=== PATIENT | male | born 1960 | race Two or more races ===

== ENCOUNTER 2024-06-18 18:43 | Inpatient (IN) | payer OTHER ==
[~2024-06-18] VITALS: Ht 182.9 cm; Wt 155.5 kg
[2024-06-18] VITALS (9 sets, daily range): BP systolic 102–122; BP diastolic 56–83; PULSE 80–101; RESP 17–38; TEMP 94.1–95.3; O2SAT 86–100
[~2024-06-18 18:43] MED LIST: ALBU108A5 IN; APIX5TAB PO; ATEN-60 PO; FLUT50SP31 EACHNOSTRI; HYDR25TA4 PO; LOSA-535 PO; TAMS0.4C39 PO
[2024-06-18] MEDS: EPINEPHrine HCL 250 ML IV ONE ×2 (19:02→19:03)
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
[2024-06-18] MEDS: NOREPINEPHRINE 8 MG/250ML KIT 250 ML IV ONE (19:09)
--- NOTE | 2024-06-18 19:35 | RESUS ---
CODE BLUE ASSESSSMENT History of Events History of Events: SECURED CODE NINOSKA ARRRIVED WITH EMS AT 1842. Initial Information Date: Jun 18, 2024 Time: 18:42 Location of Arrest: In Field Arrest Witnessed: Yes CPR started by whom: EMS Pre-Hospital Care: ACLS Type of arrest: Cardiac, Adult, Witnessed Spontaneous Respirations: No Pulse Present: No Monitoring: ECG, Pulse Oximetry Crash Cart Opened and Supplies: Yes Airway Ventilation Breathing at Onset: Assisted Oxygen Delivery Method: Ambu-Bag Time of first Assisted Ventila: 18:42 Artificial Ventilation: Bag/Mask (IGEL AIRWAY INSERTED BY EMS) Circulation Circulation #1: Time: 18:44 Pulse Rate (adult): 0 Blood Pressure Systolic: 0 Blood Pressure Diastolic: 0 Circulation Comment: PEA Circulation #2: Time: 18:46 Pulse Rate (adult): 0 Blood Pressure Systolic: 0 Blood Pressure Diastolic: 0 Circulation Comment: PEA Circulation #3: Time: 18:48 Pulse Rate (adult): 0 Blood Pressure Systolic: 0 Blood Pressure Diastolic: 0 Circulation Comment: PEA Circulation #4: Time: 18:50 Pulse Rate (adult): 151 Blood Pressure Systolic: 169 Blood Pressure Diastolic: 78 Circulation Comment: ROSC Defibrillation Defbrillation : Time Defibrillator Applied: 18:42 Procedure - IV Procedure - IV : IV start time: 18:48 IV Side: Right IV Location: Forearm Anterior IV Catheter Type: Peripheral IV IV Placed: In Hospital IV Gauge: 20 IV Line Care: Saline Flush Procedure - Intraosseous Site of Intraosseous: Tibia alberto-medial (LEFT I/O ) Intraosseous inserted by: EMS Medications & Response Medications and Responses #1: Medication Time: 18:45 ADULT Medications Given ADULT: Epinephrine 1 mg Route of Administration: IO Medications and Responses #2: Medication Time: 18:46 ADULT Medications Given ADULT: 2 Amps Na Bicarb Route of Administration: IO Medications and Responses #3: Medication Time: 18:48 ADULT Medications Given ADULT: Epinephrine 1 mg, Calcium Chloride 10 mL Route of Administration: IO Medications and Responses #4: Medication Time: 18:49 ADULT Medications Given ADULT: Sodium Bacarbinate 50 meq Route of Administration: IO Medications and Responses #5: Medication Time: 18:53 ADULT Medications Given ADULT: Amiodarone 150 mg Route of Administration: IO Nurses Notes Emblem Coma Scale Eye Opening: None (1) Patricia Coma Scale Verbal: None (1) Emblem Coma Scale Motor: None (1) Pupil Reaction: Non Reactive (3MM) Bedside Blood Glucose: 114 Time Code Ended Time Code Ended: 18:50 Post Arrest Status: Ventilated Outcome of code: Successful Family notified: Yes ( AT BEDSIDE SPOKE WITH ) Code Team Present: FRANK BROWN INSURANCE INVESTIGATOR, SUSSY DANIEL RN, JOSE R RN, RICCARDO RN, YANCI CHEMICAL ENGRAVER, MITCHELL RT, MARILIA NURSE MACHINE MOLDER SQUEEZE, CAROLE CHEMICAL ENGRAVER, ROSC Time of ROSC: 18:50 Frank Meyers Jun 18, 2024 19:35
[2024-06-18 19:45] LABS: Basophils # (auto) 0 10 ^3/uL (0-0.2); Basophils % (auto) 0.4 % (0.0-2.0); Eosinophils # (auto) 0 10 ^3/uL (0-0.8); Eosinophils % (auto) 0.6 % (0.0-7.0); Hematocrit 41.2 % (41.0-53.0); Hemoglobin 13.3 g/dL (13.5-17.5); Lymphocytes # (auto) 1.1 10 ^3/uL (0.4-5.4); Lymphocytes % (auto) 17.1 % (10.0-50.0); Mean Corpuscular Hemoglobin 30.3 pg (28.0-32.0); Mean Corpuscular Hgb Conc. 32.3 g/dL (32.0-36.0); Mean Corpuscular Volume 93.9 fL (80.0-100.0); Monocytes # (auto) 0.5 10 ^3/uL (0-1.3); Monocytes % (auto) 8.6 % (0.0-12.0); Neutrophils # (auto) 4.6 10 ^3/uL (1.6-8.6); Neutrophils % (auto) 73.3 % (37.0-80.0); Nucleated Red Blood Cells % 0.2 %; Platelet Count (auto) 103 10^3/uL (140-450); Red Blood Cells 4.39 10^6/uL (4.5-5.90); Red Cell Distribution Width 14.5 % (11.8-14.3); White Blood Cell 6.3 10^3/uL (4.4-10.8)
[2024-06-18] MEDS ORDERED: SODIUM CHLORIDE 0.9% 1,000 ML IV SCH (19:45)
[2024-06-18] MEDS ORDERED: ACETAMINOPHEN 650 MG RECT SUPP PR PRN (19:45)
[2024-06-18] MEDS: fentaNYL Drip 2500mCg/250mlNS 250 ML IV SCH (19:57)
[2024-06-18 19:58] LABS: Alanine Aminotransferase 25 U/L (7-40); Albumin 3.3 g/dL (3.2-4.8); Alkaline Phosphatase 69 U/L (46-116); Anion Gap 14 (5-15); Aspartate Aminotransferase 33 U/L (13-40); Calcium 9.5 mg/dL (8.7-10.4); Carbon Dioxide 29 mmol/L (20-31); Potassium 3.8 mmol/L (3.5-5.1)
[2024-06-18 20:04] LABS: Bilirubin, Total 1.3 mg/dL (0.2-1.0); Blood Urea Nitrogen 25 mg/dL (9-23); Chloride 88 mmol/L (98-107); Glucose 123 mg/dL (74-106); Sodium 131 mmol/L (136-145)
--- NOTE | 2024-06-18 20:05 | DVH ---
CHEST RADIOGRAPH Indication: tube placement Technique: Single frontal view of the chest was obtained Comparison: None FINDINGS: Lines and Tubes: Endotracheal tube 1.1 cm above the sherri Lungs: Pulmonary vascular congestion bilateral Pleura: No effusion. No pneumothorax. Cardiomediastinal contours: Cardiomegaly Bones: No acute osseous abnormality. IMPRESSION: 1. Endotracheal tube 1 cm above the sherri. 2. Cardiomegaly 3. Pulmonary vascular congestion bilaterally
[2024-06-18] MEDS: MIDAZOLAM DRIP 50 mg/50mL 50 ML IV ONE (20:21)
[2024-06-18] MEDS: MIDAZOLAM DRIP 50 mg/50mL 50 ML IV SCH (20:30)
[2024-06-18 20:42] LABS: Blood Alcohol < 3.0 mg/dL (<10)
[2024-06-18] MEDS ORDERED: NITROGLYCERIN 0.4 MG SL TAB SL PRN (20:45)
[2024-06-18] MEDS ORDERED: MORPHINE SULFATE INJ 2 MG/ml SYRG IV PRN (20:45)
--- NOTE | 2024-06-18 20:53 | DVHHP2 ---
History of Present Illness Reason for Visit: Cardiac arrest History of Present Illness The patient is a 64-year-old male severely obese with past medical history hypertension presented to [facility] ED for evaluation of cardiopulmonary arrest. As reported by EMS, patient came home and after entering residence, collapsed to the ground and family called 911. CPR was initiated, and EMS arrived shortly thereafter. EMS reports patient was in PEA upon arrival and AutoPulse was applied. reports patient had been feeling more fatigued than normal over the past 2-3 days and had stopped driving due to the fatigue. Patient was seen and evaluated in the ED fully intubated, laboratory data shows WBC 6.3, platelets 103, sodium 131, potassium 3.6, BUN 25, creatinine 1.00, GFR 83, glucose 123, total bilirubin 1.3, BNP 745.94, troponin 60, blood pressure 82/32, heart rate 154 trending down to 100, temperature 97.4 F, O2 saturation 97% on ventilator. Head CT showed no acute intracranial hemorrhage. Please see medication orders section in the computer. On my assessment, patient is fully intubated, no diaphoresis, no vomiting, no fever, no chills. Patient was admi tted for further evaluation and medical management. Past Medical History HTN, Morbid obesity, heart problem Past Surgical History Unknown Family History Reviewed, noncontributory to the management of this case. Past Social History The patient lives at home, no history of smoking, alcohol or illicit drugs abuse on file. Review of Systems Constitutional: Yes: Weakness, Other (Fatigue); No: Fever, Chills, Sweats, Malaise Eyes: No: Pain, Vision change, Conjunctivae inflammation, Eyelid inflammation, Other, Redness ENT: No: Ear pain, Ear discharge, Nose pain, Nose discharge, Nose congestion, Mouth pain, Mouth swelling, Throat pain, Throat swelling, Other Respiratory: No: Cough, Dry, Shortness of breath, SOB with excertion, Wheezing, Hemoptysis, Pleuritic Pain, Sputum, Wheezing, Other Cardiovascular: No: Chest Pain, Palpitations, Orthopnea, Paroxysmal Noc. Dyspnea, Edema, Lt Headedness, Other Gastrointestinal: No: Nausea, Vomiting, Abdominal Pain, Diarrhea, Constipation, Melena, Hematochezia, Other Genitourinary: No Dysuria, No Frequency, No Incontinence, No Hematuria, No Retention, No Other Musculoskeletal: No: other, neck pain, shoulder pain, arm pain, back pain, hand pain, leg pain, foot pain Skin: No: Rash, Lesions, Jaundice, Bruising, Other Neurological: No: Weakness, Numbness, Incoordination, Change in speech, Confusion, Seizures, Other Allergies: Coded Allergies: UNOBTAINABLE (Unverified , 06/18/24) Medications Current Medications Medications Dose Ordered Sig/Patricia Route Start Time Stop Time Status Last Admin Dose Admin Norepinephrine Bitartrate 250 ml @ 3.75 mls/hr Q24H IV 06/18/24 19:15 Fentanyl Citrate 250 ml @ 2.5 mls/hr Q24H IV 06/18/24 19:45 06/18/24 19:57 2.5 MLS/HR Famotidine 20 mg Q12HR IV 06/18/24 22:00 Sodium Chloride 1,000 ml @ 60 mls/hr [id number] IV 06/18/24 19:45 Ondansetron HCl 4 mg Q4HP PRN IV 06/18/24 19:45 Enoxaparin Sodium 40 mg DAILY SC 06/19/24 10:00 UNV Acetaminophen 650 mg Q6HP PRN OR 06/18/24 19:45 Midazolam HCl 50 ml @ 10 mls/hr Q5H IV 06/18/24 20:30 06/18/24 20:30 10 MLS/HR Exam Vital Signs Vital Signs Date Time Temp Pulse Resp B/P (MAP) Pulse Ox O2 Delivery O2 Flow Rate FiO2 06/18/24 20:30 90/58 06/18/24 20:06 84 16 94 100 06/18/24 19:35 Ambu-Bag General Appearance: Other (Fully intubated) HEENT: Atraumatic, PERRLA, EOMI, Mucous membr. moist/pink Respiratory: Normal air movement, Other (On ventilator) Cardiovascular: Regular rate, Normal S1, Normal S2, No murmurs Abdominal: Normal bowel sounds, Soft, No tenderness, No hepatospenomegaly, No masses Extremities: No clubbing, No cyanosis, No edema, Normal pulses, No tenderness/swelling Neuro: Other (Generalized weakness) Psych/Mental Status: Other (Unobtainable) Labs/Xrays Labs Test 06/18/24 20:01 06/18/24 19:13 Range/Units Troponin I High Sensitivity 154 *H </=54 ng/L White Blood Count 6.3 4.4-10.8 10^3/uL Red Blood Count 4.39 L 4.5-5.90 10^6/uL Hemoglobin 13.3 L 13.5-17.5 g/dL Hematocrit 41.2 41.0-53.0 % Mean Corpuscular Volume 93.9 80.0-100.0 fL Mean Corpuscular Hemoglobin 30.3 28.0-32.0 pg Mean Corpuscular Hemoglobin Concent 32.3 32.0-36.0 g/dL Red Cell Distribution Width 14.5 H 11.8-14.3 % Platelet Count 103 L 140-450 10^3/uL Mean Platelet Volume 8.3 6.9-10.8 fL Neutrophils (%) (Auto) 73.3 37.0-80.0 % Lymphocytes (%) (Auto) 17.1 10.0-50.0 % Monocytes (%) (Auto) 8.6 0.0-12.0 % Eosinophils (%) (Auto) 0.6 0.0-7.0 % Basophils (%) (Auto) 0.4 0.0-2.0 % Neutrophils # (Auto) 4.6 1.6-8.6 10 ^3/uL Lymphocytes # (Auto) 1.1 0.4-5.4 10 ^3/uL Monocytes # (Auto) 0.5 0-1.3 10 ^3/uL Eosinophils # (Auto) 0 0-0.8 10 ^3/uL Basophils # (Auto) 0 0-0.2 10 ^3/uL Nucleated Red Blood Cells 0.2 % Sodium Level 131 L 136-145 mmol/L Potassium Level 3.8 3.5-5.1 mmol/L Chloride Level 88 L 98-107 mmol/L Carbon Dioxide Level 29 20-31 mmol/L Anion Gap 14 5-15 Blood Urea Nitrogen 25 H 9-23 mg/dL Creatinine 1.00 0.700-1.30 mg/dL Glomerular Filtration Rate Calc 83 >90 mL/min BUN/Creatinine Ratio 25.0 H 10.0-20.0 Serum Glucose 123 H 74-106 mg/dL Calcium Level 9.5 8.7-10.4 mg/dL Total Bilirubin 1.3 H 0.2-1.0 mg/dL Aspartate Amino Transferase (AST) 33 13-40 U/L Alanine Aminotransferase (ALT) 25 7-40 U/L Alkaline Phosphatase 69 46-116 U/L B-Type Natriuretic Peptide 745.94 0-100 pg/mL Total Protein 6.0 5.7-8.2 g/dL Albumin 3.3 3.2-4.8 g/dL Plasma/Serum Blood Alcohol < 3.0 <10 mg/dL PATIENT: KRYS BLAKE ACCT: [id number] UNIT: [id number] : 1960 LOC: OVERFLOW ROOM / BED: [address] [place] [address] / AGE / SEX: 64 / M ADM STATUS: ADM IN SERVICE 34 ORDERING PHYSICIAN: SHAHLA JACOBO MD PROCEDURE(s): CS2 - CERVICAL WITHOUT CONTRAST REASON: full arrest ORDER NUMBER(s): [id number], ACCESSION NUMBER(s): [id number] EXAM: CT CERVICAL WITHOUT CONTRAST HISTORY: full arrest COMPARISON: None CTDIvol mGy, DLP mGy*cm. TECHNIQUE: Multiple axial CT images of the spine were obtained using bone algorithm. Axial and coronal reformatting was done. Bone and soft tissue windows were reviewed. FINDINGS: No prevertebral soft tissue abnormality noted. Reversal of the normal cervical lordosis. No listhesis. No evidence of fracture or dislocation in the cervical spine. Visualized paraspinal soft tissues appear grossly unremarkable. Mild cervical spondylosis without significant spinal canal stenosis. IMPRESSION: No evidence of cervical spine fracture or dislocation. ORDERING PHYSICIAN: SHAHLA JACOBO MD PROCEDURE(s): CXRP - CHEST PORTABLE REASON: tube placement ORDER NUMBER(s): [id number], ACCESSION NUMBER(s): [id number] CHEST RADIOGRAPH Indication: tube placement Technique: Single frontal view of the chest was obtained Comparison: None FINDINGS: Lines and Tubes: Endotracheal tube 1.1 cm above the sherri Lungs: Pulmonary vascular congestion bilateral Pleura: No effusion. No pneumothorax. Cardiomediastinal contours: Cardiomegaly Bones: No acute osseous abnormality. IMPRESSION: 1. Endotracheal tube 1 cm above the sherri. 2. Cardiomegaly 3. Pulmonary vascular congestion bilaterally PATIENT: KRYS BLAKE ACCT: [id number] UNIT: [id number] : 1960 LOC: OVERFLOW ROOM / BED: 1009-VANESSA / A AGE / SEX: 64 / M ADM STATUS: ADM IN SERVICE 34 ORDERING PHYSICIAN: SHAHLA JACOBO MD PROCEDURE(s): HWOCT - HEAD WITHOUT CONTRAST REASON: full arrest ORDER NUMBER(s): [id number], ACCESSION NUMBER(s): [id number] EXAM: CT HEAD WITHOUT CONTRAST INDICATION: full arrest TECHNIQUE: CT of the head without intravenous contrast. Radiation Dose Information: CT Dose: CTDI volume is 68.54 mGy. Dose-length product is 1350.29 mGy*cm The dose indicators for CT are the volume Computed Tomography (CT) Dose Index (CTDIvol) and the Dose Length Product (DLP), and are measured in units of mGy and mGy-cm, respectively. These indicators are not patient dose, but values generated from the CT scanner acquisition factors. The report includes radiation exposure data for exposures received during this examination. COMPARISON: None FINDINGS: There is no evidence of acute intracranial hemorrhage, extra-axial collection, mass effect, midline shift, herniation or hydrocephalus. The ventricles, sulci and cisterns are age appropriate. The barragan-white differentiation is intact. Patchy periventricular and subcortical white matter hypoattenuation is nonspecific but may be related to small vessel ischemic disease. Opacification of the ethmoid sinuses bilaterally sinuses and mastoid air cells are clear. The surrounding soft tissues and osseous structures are unremarkable. IMPRESSION: 1. No acute intracranial hemorrhage 2. No CT findings of territorial ischemia. 3. No CT findings of displaced skull fracture Assessment/Plan Assessment/Plan Cardiopulmonary arrest Hypotension Heart failure, unspecified Elevated troponin Severe obesity Acute exacerbation of congestive heart failure Acute respiratory failure Plan 1. Admit to intensive care unit 2. Breathing treatment 3. Pain control management 4. Management of fluids and electrolytes 5. Consultation for cardiology/pulmonology 6. Diagnostic tests head CT 7. DVT prophylaxis-on heparin 8. Repeat labs CBC, CMP in a.m. 9. Continue with current medical management 10. Treatment plan discussed with patient and RN. Patient is fully intubated. Plan discussed with: Patient, Other (RN) My Orders Orders - SUNITA CAMPO DNP Procedure Category Date Status Time * Cardiology Consult CONS 06/18/24 Transmitted 19:41 *Consult CONS 06/18/24 Transmitted / 19:41 Famotidine Injection PHA 06/18/24 In Process (Pepcid Injection) 22:00 Allergies MITCH 06/18/24 In Process 19:41 Code Status CODE 06/18/24 Transmitted 19:41 Sodium Chloride 0.9% PHA 06/18/24 In Process 19:45 Oxygen Per Hour RT 06/18/24 Transmitted 19:41 Ondansetron Hcl PHA 06/18/24 In Process (Zofran) 19:45 Enoxaparin Sodium PHA 06/19/24 Pending (Lovenox) 10:00 Fall Risk Precautions MITCH 06/18/[address] 19:41 Complete Blood Count LAB 06/19/24 Verified 04:00 Comprehensive LAB 06/19/24 Verified Metabolic Panel 04:00 Npo (Nothing By DIET 06/19/24 Transmitted Mouth) Diet Breakfast Condition: Critical MITCH 06/18/24 In Process 19:41 Sequential MITCH 06/18/24 In Process Compression Device Acetaminophen PHA 06/18/24 In Process Suppository (Tylenol 19:45 Furosemide Injection PHA 06/18/24 Verified (Lasix Injection) 20:45 Furosemide Injection PHA 06/19/24 Verified (Lasix Injection) 10:00 Heparin Sodium PHA 06/18/24 Verified (Porcine) 22:00 Admit ADMIT 06/18/24 Verified 20:43 Nitroglycerin PHA 06/18/24 Verified Sublingual (Ntrostat 20:45 Morphine Sulfate PHA 06/18/24 Verified Injection 20:45 Stat Ekg For Chest MITCH 06/18/24 Verified Pain 20:43 Notify Of Changes [facility] 06/18/24 Verified From Base 20:43 Circular Knitter Helper For MITCH 06/18/24 Verified 24 Hours 20:43 Emergency Dysrhythmia MITCH 06/18/24 Verified Protocol 20:43 Rhythm Strips Once MITCH 06/18/24 Verified Every Shift 20:43 Oxygen By Nasal RT 06/18/24 Verified Cannula 20:43 Problem List: (1) Cardiopulmonary arrest (2) Acute respiratory failure (3) Elevated troponin (4) Severe obesity (5) Heart failure, unspecified (6) Hypotension (7) Acute exacerbation of congestive heart failure Date of Service: Jun 18, 2024 Billing Provider: SUNITA CAMPO DNP Common Visit Codes: 41138-[id number] INP/OBS CARE (HIGH) SUNITA CAMPO DNP Jun 18, 2024 20:53
[2024-06-18 21:41] LABS: Base Excess 7.8 mmol/L (-2.0-3.0)
--- NOTE | 2024-06-18 21:47 | DVH ---
EXAM: CT HEAD WITHOUT CONTRAST INDICATION: full arrest TECHNIQUE: CT of the head without intravenous contrast. Radiation Dose Information: CT Dose: CTDI volume is 68.54 mGy. Dose-length product is 1350.29 mGy*cm The dose indicators for CT are the volume Computed Tomography (CT) Dose Index (CTDIvol) and the Dose Length Product (DLP), and are measured in units of mGy and mGy-cm, respectively. These indicators are not patient dose, but values generated from the CT scanner acquisition factors. The report includes radiation exposure data for exposures received during this examination. COMPARISON: None FINDINGS: There is no evidence of acute intracranial hemorrhage, extra-axial collection, mass effect, midline s hift, herniation or hydrocephalus. The ventricles, sulci and cisterns are age appropriate. The barragan-white differentiation is intact. Patchy periventricular and subcortical white matter hypoattenuation is nonspecific but may be related to small vessel ischemic disease. Opacification of the ethmoid sinuses bilaterally sinuses and mastoid air cells are clear. The surrounding soft tissues and osseous structures are unremarkable. IMPRESSION: 1. No acute intracranial hemorrhage 2. No CT findings of territorial ischemia. 3. No CT findings of displaced skull fracture
[2024-06-18] MEDS: FAMOTIDINE (10MG/ML) 2ML VL IV SCH (22:00)
[2024-06-18] MEDS: HEPARIN SODIUM (PORCINE) 5000 UNITS/ML 1ML VIAL SC SCH (22:00)
--- NOTE | 2024-06-18 22:11 | DVH ---
EXAM: CT CERVICAL WITHOUT CONTRAST HISTORY: full arrest COMPARISON: None CTDIvol mGy, DLP mGy*cm. TECHNIQUE: Multiple axial CT images of the spine were obtained using bone algorithm. Axial and coron al reformatting was done. Bone and soft tissue windows were reviewed. FINDINGS: No prevertebral soft tissue abnormality noted. Reversal of the normal cervical lordosis. No listhesis . No evidence of fracture or dislocation in the cervical spine. Visualized paraspinal soft tissues ap pear grossly unremarkable. Mild cervical spondylosis without significant spinal canal stenosis. IMPRESSION: No evidence of cervical spine fracture or dislocation.
[2024-06-18 22:23] LABS: Urine Bacteria FEW /hpf (None Seen); Urine Blood Negative /uL (Negative); Urine Clarity Clear (Clear); Urine Color Yellow (Yellow); Urine Hyaline Cast FEW /lpf (0 - 2); Urine Mucus FEW (None Seen); Urine Protein, UAD 3+ (Negative); Urine Specific Gravity 1.018 (1.001-1.035); Urine Squamous Epithelial Cell FEW /hpf (<5); Urine Urobilinogen 4 mg/dL (Negative); Urine WBC 9 /HPF (0-3); Urine pH 6.5 (5.0-9.0)
[2024-06-18 22:33] LABS: Opiate Scree,Urine Neg (NEGATIVE)
[2024-06-18 22:34] LABS: Phencyclidine Screen, Urine Neg (NEGATIVE)
[2024-06-18] MEDS: PROPOFOL 100 ML IV SCH (22:42)
[2024-06-18 23:02] LABS: Amphetamine Screen, Urine Neg (NEGATIVE); Barbiturate Scree,Urine Neg (NEGATIVE); Benzodiazephine Screen, Urine Neg (NEGATIVE); Cannabinoid Screen, Urine Neg (NEGATIVE); Cocaine Screen, Urine Neg (NEGATIVE)
[2024-06-19] VITALS (101 sets, daily range): BP systolic 84–133; BP diastolic 44–79; PULSE 72–122; RESP 10–19; TEMP 95.4–99.9; O2SAT 93–100
[2024-06-19 04:21] LABS: Basophils # (auto) 0 10 ^3/uL (0-0.2); Basophils % (auto) 0.1 % (0.0-2.0); Eosinophils # (auto) 0 10 ^3/uL (0-0.8); Hematocrit 38.8 % (41.0-53.0); Hemoglobin 12.9 g/dL (13.5-17.5); Lymphocytes # (auto) 0.3 10 ^3/uL (0.4-5.4); Lymphocytes % (auto) 2.5 % (10.0-50.0); Mean Corpuscular Hemoglobin 30.3 pg (28.0-32.0); Mean Corpuscular Hgb Conc. 33.1 g/dL (32.0-36.0); Mean Corpuscular Volume 91.4 fL (80.0-100.0); Monocytes # (auto) 0.9 10 ^3/uL (0-1.3); Monocytes % (auto) 7.6 % (0.0-12.0); Neutrophils # (auto) 10.8 10 ^3/uL (1.6-8.6); Neutrophils % (auto) 89.8 % (37.0-80.0); Nucleated Red Blood Cells % 0.1 %; Platelet Count (auto) 113 10^3/uL (140-450); Red Blood Cells 4.25 10^6/uL (4.5-5.90)
[2024-06-19 04:28] LABS: Alanine Aminotransferase 28 U/L (7-40); Alkaline Phosphatase 60 U/L (46-116); Anion Gap 9 (5-15); BUN/Creatinine Ratio 27.4 (10.0-20.0); Calcium 9.2 mg/dL (8.7-10.4)
[2024-06-19 04:32] LABS: Aspartate Aminotransferase 63 U/L (13-40); Blood Urea Nitrogen 31 mg/dL (9-23); Carbon Dioxide 34 mmol/L (20-31); Chloride 88 mmol/L (98-107); Glucose 120 mg/dL (74-106); Sodium 131 mmol/L (136-145); Total Protein 5.4 g/dL (5.7-8.2)
--- NOTE | 2024-06-19 04:34 | ECG ---
[facility] Test Date: 2024-06-18 Test Time: 19:01:12 Pat Name: KRYS BLAKE Department: er Room: [address] [place] [address] Gender: M Hospitality Services Manager: er : 1960 Requested By: SHAHLA BISHOP Order Number: [id number] Reading MD: Earnest Dennis Measurements Intervals [place] Rate: 104 P: 0 DC: 0 QRS: -148 QRSD: 188 T: 14 QT: 459 QTc: 604 Interpretive Statements Atrial flutter with predominant 2:1 AV block Right bundle branch block Electronically Signed On 06-22-2024 16:47:09 PDT by Earnest Dennis Please click the below link to view image of tracing.
[2024-06-19 07:27] LABS: Base Excess 10.6 mmol/L (-2.0-3.0)
[2024-06-19] MEDS: NOREPINEPHRINE 8 MG/250ML KIT 250 ML IV SCH (08:16)
[2024-06-19] MEDS: FUROSEMIDE 40 MG/4 ML VIAL IV SCH (09:32)
--- NOTE | 2024-06-19 09:35 | DVHINCON2 ---
Date of service: Jun 19, 2024 History of Present Illness 64 yo M morbidly obese, hx of afib on doac, hx of etoh abuse admitted for OHCA and PEA arrest in route and now intubated. trop is elevted. ecg showed RBBB and likely afl on admit. pt is now intubated Past Medical History reviewed Allergies: Coded Allergies: UNOBTAINABLE (Unverified , 06/18/24) Current Medications Current Medications Medications (Trade) Dose Ordered Sig/Patricia Route PRN Reason Start Time Stop Time Status Last Admin Norepinephrine Bitartrate 250 ml @ 3.75 mls/hr Q24H IV 06/18/24 19:15 Fentanyl Citrate 250 ml @ 2.5 mls/hr Q24H IV 06/18/24 19:45 06/19/24 08:41 Famotidine (Pepcid Injection) 20 mg Q12HR IV 06/18/24 22:00 06/18/24 22:00 Sodium Chloride 1,000 ml @ 60 mls/hr [id number] IV 06/18/24 19:45 06/18/24 20:53 DC Ondansetron HCl (Zofran) 4 mg Q4HP PRN IV NAUSEA / VOMITING 06/18/24 19:45 Enoxaparin Sodium (Lovenox) 40 mg DAILY SC 06/19/24 10:00 06/18/24 20:53 DC Acetaminophen (Tylenol Suppository) 650 mg Q6HP PRN [place] PAIN SCALE 1-3 OR TEMP>100.4 06/18/24 19:45 Midazolam HCl 50 ml @ 10 mls/hr Q5H IV 06/18/24 20:30 06/19/24 09:21 Furosemide (Lasix Injection) 40 mg DAILY IV 06/19/24 10:00 Heparin Sodium (Porcine) 5,000 units Q12HR SC 06/18/24 22:00 Nitroglycerin (Ntrostat Sublingual) 0.4 mg Q5MINP PRN SL FOR CHEST PAIN 06/18/24 20:45 Morphine Sulfate 2 mg Q30M PRN IV FOR CHEST PAIN 06/18/24 20:45 Propofol 100 ml @ 5.443 mls/ hr [id number] IV 06/18/24 22:30 06/19/24 06:19 Review of Systems intubated Vital Signs Vital Signs Date Time Temp Pulse Resp B/P (MAP) Pulse Ox O2 Delivery O2 Flow Rate FiO2 06/19/24 09:21 89/53 06/19/24 08:46 89 06/19/24 06:40 18 95 100 06/19/24 06:38 Mechanical Ventilator+ 06/19/24 06:30 99.3 210.7 Physical Exam intubated sedated s1 s2 irregular diffuse rhonchi abd soft obese trivial edema Labs/Diagnostic Data Labs Test 06/19/24 07:14 06/19/24 03:43 06/18/24 22:11 06/18/24 22:07 Range/Units Blood Gas Specimen Type Arterial Blood Gas Sample Site Right radial Blood Gas Patient Temperature 37.0 Arterial Blood Date Drawn [id number] Arterial Blood pH 7.544 H 7.350-7.450 Arterial Blood Partial Pressure CO2 40.3 35.0-48.0 mmHg Arterial Blood Partial Pressure O2 50.2 *L 83.0-108.0 mmHg Arterial Blood HCO3 34.0 H 21.0-28.0 mmol/L Arterial Blood Oxygen Saturation 87.0 L 94.0-98.0 % Arterial Blood Base Excess 10.6 H -2.0-3.0 mmol/L Arterial Blood Oxyhemoglobin 86.0 L 94.0-98.0 % Arterial Blood Carboxyhemoglobin 0.8 0.5-1.5 % Arterial Blood Methemoglobin 0.3 0.0-1.5 % Thom Test Modified Blood Gas Total Hemoglobin 13.60 13.5-17.5 g/dL Blood Gas Set Respiration Rate 18.0 Blood Gas Modality Vent - ac FiO2 % 100.0 Blood Gas Tidal Volume 550.0 Blood Gas PEEP or CPAP 7.0 Blood Gas Critical Value Read Back Yes Blood Gas Notified Whom David valdivia Blood Gas Notified Time [id number] Blood Gas Notified By Nereyda benavides copy center specialist White Blood Count 12.0 #H 4.4-10.8 10^3/uL Red Blood Count 4.25 L 4.5-5.90 10^6/uL Hemoglobin 12.9 L 13.5-17.5 g/dL Hematocrit 38.8 L 41.0-53.0 % Mean Corpuscular Volume 91.4 80.0-100.0 fL Mean Corpuscular Hemoglobin 30.3 28.0-32.0 pg Mean Corpuscular Hemoglobin Concent 33.1 32.0-36.0 g/dL Red Cell Distribution Width 14.0 11.8-14.3 % Platelet Count 113 L 140-450 10^3/uL Mean Platelet Volume 8.1 6.9-10.8 fL Neutrophils (%) (Auto) 89.8 H 37.0-80.0 % Lymphocytes (%) (Auto) 2.5 L 10.0-50.0 % Monocytes (%) (Auto) 7.6 0.0-12.0 % Eosinophils (%) (Auto) 0.0 0.0-7.0 % Basophils (%) (Auto) 0.1 0.0-2.0 % Neutrophils # (Auto) 10.8 H 1.6-8.6 10 ^3/uL Lymphocytes # (Auto) 0.3 L 0.4-5.4 10 ^3/uL Monocytes # (Auto) 0.9 0-1.3 10 ^3/uL Eosinophils # (Auto) 0 0-0.8 10 ^3/uL Basophils # (Auto) 0 0-0.2 10 ^3/uL Nucleated Red Blood Cells 0.1 % Sodium Level 131 L 136-145 mmol/L Potassium Level 4.0 3.5-5.1 mmol/L Chloride Level 88 L 98-107 mmol/L Carbon Dioxide Level 34 H 20-31 mmol/L Anion Gap 9 5-15 Blood Urea Nitrogen 31 H 9-23 mg/dL Creatinine 1.13 0.700-1.30 mg/dL Glomerular Filtration Rate Calc 72 >90 mL/min BUN/Creatinine Ratio 27.4 H 10.0-20.0 Serum Glucose 120 H 74-106 mg/dL Calcium Level 9.2 8.7-10.4 mg/dL Total Bilirubin 2.0 H 0.2-1.0 mg/dL Aspartate Amino Transferase (AST) 63 H 13-40 U/L Alanine Aminotransferase (ALT) 28 7-40 U/L Alkaline Phosphatase 60 46-116 U/L Total Protein 5.4 L 5.7-8.2 g/dL Albumin 3.0 L 3.2-4.8 g/dL Urine Color Yellow Yellow Urine Clarity Clear Clear Urine pH 6.5 5.0-9.0 Urine Specific [place] 1.018 1.001-1.035 Urine Protein 3+ H Negative Urine Ketones Negative Negative Urine Blood Negative Negative /uL Urine Nitrite Negative Negative Urine Bilirubin Negative Negative Urine Urobilinogen 4 H Negative mg/dL Urine Leukocyte Esterase Negative Negative /uL Urine RBC 6 0 - 3 /hpf Urine Microscopic WBC 9 H 0-3 /HPF Urine Squamous Epithelial Cells Few <5 /hpf Urine Bacteria Few H None Seen /hpf Urine Hyaline Casts Few 0 - 2 /lpf Urine Mucus Few None Seen Urine Glucose Normal Normal mg/dL Urine Opiates Screen Neg NEGATIVE Urine Fentanyl Screen Neg NEGATIVE Urine Barbiturates Screen Neg NEGATIVE Urine Phencyclidine Screen Neg NEGATIVE Urine Amphetamines Screen Neg NEGATIVE Urine Benzodiazepines Screen Neg NEGATIVE Urine Cocaine Screen Neg NEGATIVE Urine Cannabinoids Screen Neg NEGATIVE Troponin I High Sensitivity 585 *H </=54 ng/L Test 06/18/24 19:13 Range/Units B-Type Natriuretic Peptide 745.94 0-100 pg/mL Plasma/Serum Blood Alcohol < 3.0 <10 mg/dL Assessment out of hospital cardiac arrest obesity afib/flutter etoh abuse morbid obesity nstemi ckd Plan/Recommendation probable type 2 nstemi recommend neuro eval and head ct poor uop, iv lasix given, check echo for lvef assessment pt HR well controlled 80s now pulm consult for intubation guarded/poor prognosis 40 mins critical care time spent Plan discussed with: Daughter WILEBR MURRAY Lewis CHAVIRA Jun 19, 2024 09:35
[2024-06-19] MEDS ORDERED: ENOXAPARIN SOD 40 MG/0.4 ML SYRINGE SC SCH (10:00)
--- NOTE | 2024-06-19 10:25 | DVH ---
Procedure: XY CHEST PORTABLE 06/19/2024 09:52 AM Indication: INTUBATED Comparison: XY CHEST PORTABLE on DOS: 06/18/24 TECHNIQUE: XY CHEST PORTABLE FINDINGS: Medical devices: The ETT ends 3.9 cm above the sherri. Tip of the enteric tube is not well seen due t o underpenetration and body habitus. Cardiomediastinal: The heart is moderately enlarged. Pulmonary vasculature is prominent. Lungs: Small bilateral pleural effusions. Bilateral lower lung zone pulmonary opacities and air bron chograms. No pneumothorax. Bones/soft tissues: No acute abnormality is noted. IMPRESSION: 1. The ETT is in satisfactory position. 2. CHF, small bilateral pleural effusions moderate bilateral lower lung zone pulmonary opacities may represent edema or pneumonia. Recommend clinical and biochemical correlation.
[2024-06-19 15:13] LABS: Base Excess 11.8 mmol/L (-2.0-3.0)
--- NOTE | 2024-06-19 19:48 | DVHPN2 ---
Subjective in bed intubated and sedated Changes from previous H/P or p: No Changes Eyes: No Pain, No Vision change, No Conjunctivae inflammation, No Eyelid inflammation, No Other, No Redness ENT: No Ear pain, No Ear discharge, No Nose pain, No Nose discharge, No Nose congestion, No Mouth pain, No Mouth swelling, No Throat pain, No Throat swelling, No Other Cardiovascular: No Chest Pain, No Palpitations, No Orthopnea, No Paroxysmal Noc. Dyspnea, No Edema, No Lt Headedness, No Other Respiratory: No Cough, No Dry, No Shortness of breath, No SOB with excertion, No Wheezing, No Hemoptysis, No Pleuritic Pain, No Sputum, No Other Gastrointestinal: No Nausea, No Vomiting, No Abdominal Pain, No Diarrhea, No Constipation, No Melena, No Hematochezia, No Other Genitourinary: No Dysuria, No Frequency, No Incontinence, No Hematuria, No Retention, No Other Musculoskeletal: No other, No neck pain, No shoulder pain, No arm pain, No back pain, No hand pain, No leg pain, No foot pain Skin: No Rash, No Lesions, No Jaundice, No Bruising, No Other Objective Vitals Vital Signs Date Time Temp Pulse Resp B/P (MAP) Pulse Ox O2 Delivery O2 Flow Rate FiO2 06/19/24 18:10 86 18 86/70 (75) 97 100 06/19/24 18:00 99.7 211.5 06/19/24 18:00 Mechanical Ventilator+ Intake/Output Intake and Output 06/19/24 07:00 Intake Total 785.054 ml Output Total 50 ml Balance 735.054 ml Intake Oral 0 ml IV Total 785.054 ml Output Urine Total 50 ml General Appearance: Other (sedated and intubated) Lungs: Clear to auscultation Cardiovascular: Regular rate, Normal S1, Normal S2 Medications Current Medications Medications Dose Ordered Sig/Patricia Route Start Time Stop Time Status Last Admin Dose Admin Norepinephrine Bitartrate 250 ml @ 3.75 mls/hr Q24H IV 06/18/24 19:15 06/19/24 09:30 11.25 MLS/HR Fentanyl Citrate 250 ml @ 2.5 mls/hr Q24H IV 06/18/24 19:45 06/19/24 08:41 20 MLS/HR Famotidine 20 mg Q12HR IV 06/18/24 22:00 06/19/24 09:32 20 MG Ondansetron HCl 4 mg Q4HP PRN IV 06/18/24 19:45 Acetaminophen 650 mg Q6HP PRN NC 06/18/24 19:45 Midazolam HCl 50 ml @ 10 mls/hr Q5H IV 06/18/24 20:30 06/19/24 16:34 15 MLS/HR Furosemide 40 mg DAILY IV 06/19/24 10:00 06/19/24 09:32 40 MG Heparin Sodium (Porcine) 5,000 units Q12HR SC 06/18/24 22:00 06/19/24 09:38 5,000 UNITS Nitroglycerin 0.4 mg Q5MINP PRN SL 06/18/24 20:45 Morphine Sulfate 2 mg Q30M PRN IV 06/18/24 20:45 Propofol 100 ml @ 5.443 mls/ hr [id number] IV 06/18/24 22:30 06/19/24 16:36 38.102 MLS/HR Piperacillin Sod/ Tazobactam Sod 100 ml @ 25 mls/hr Q8HR IV 06/19/24 22:00 Laboratory Results Laboratory Tests 06/19/24 03:43 Chemistry Test 06/19/24 03:43 Albumin 3.0 g/dL (3.2-4.8) L Calcium Level 9.2 mg/dL (8.7-10.4) Total Protein 5.4 g/dL (5.7-8.2) L LFT Test 06/19/24 03:43 Alanine Aminotransferase (ALT) 28 U/L (7-40) Alkaline Phosphatase 60 U/L (46-116) Aspartate Amino Transferase (AST) 63 U/L (13-40) H Total Bilirubin 2.0 mg/dL (0.2-1.0) H Urinalysis Test 06/18/24 22:11 Urine Color Yellow (Yellow) Urine Clarity Clear (Clear) Urine pH 6.5 (5.0-9.0) Urine Specific [place] 1.018 (1.001-1.035) Urine Protein 3+ (Negative) H Urine Ketones Negative (Negative) Urine Blood Negative /uL (Negative) Urine Nitrite Negative (Negative) Urine Bilirubin Negative (Negative) Urine Urobilinogen 4 mg/dL (Negative) H Urine Leukocyte Esterase Negative /uL (Negative) Urine RBC 6 /hpf (0 - 3) Urine Microscopic WBC 9 /HPF (0-3) H Urine Squamous Epithelial Cells Few /hpf (<5) Urine Bacteria Few /hpf (None Seen) H Urine Hyaline Casts Few /lpf (0 - 2) Urine Mucus Few (None Seen) Urine Glucose Normal mg/dL (Normal) Blood Gas Results Test 06/18/24 20:55 06/19/24 07:14 06/19/24 15:01 Arterial Blood pH 7.371 (7.350-7.450) 7.544 (7.350-7.450) 7.590 (7.350-7.450) FiO2 % 100.0 100.0 100.0 Microbiology Microbiology Date/Time Source Procedure Growth Status 06/19/24 00:02 Nose MRSA Screen - Final Complete 06/18/24 19:42 Sputum Gram Stain - Final Resulted 06/18/24 19:42 Sputum Respiratory Culture - Preliminary Resulted Assessment/Plan Assessment/Plan Cardiopulmonary arrest Hypotension Heart failure, unspecified Elevated troponin Severe obesity Acute exacerbation of congestive heart failure Acute respiratory failure Continue levophed mechanical intubation per pulmonary IV abx with zosyn trend troponins IV lasix Echo ordered per cardiology cardiology on consult Critical care time was 59 minutes Plan discussed with: Patient My Orders Orders - KAREL MOSES MD Procedure Category Date Status Time Piperacillin-Tazob PHA 06/19/24 In Process 3.375gm (Zosyn 3.375g 22:00 Date of Service: Jun 19, 2024 Billing Provider: KAREL MOSES MD Common Visit Codes: [id number] CARE 30-74 MIN KAREL MOSES MD Jun 19, 2024 19:48
[2024-06-19] MEDS: FUROSEMIDE 40 MG/4 ML VIAL IV ONE (20:17)
[2024-06-19] MEDS: PIPERACILLIN-TAZOB 3.375GM 100 ML IV SCH (22:18)
[2024-06-20] VITALS (108 sets, daily range): BP systolic 76–119; BP diastolic 33–76; PULSE 66–121; RESP 15–21; TEMP 98–99; O2SAT 85–100
[2024-06-20 03:50] LABS: Basophils # (auto) 0 10 ^3/uL (0-0.2); Basophils % (auto) 0.4 % (0.0-2.0); Eosinophils # (auto) 0.1 10 ^3/uL (0-0.8); Eosinophils % (auto) 1.3 % (0.0-7.0); Hematocrit 36.1 % (41.0-53.0); Hemoglobin 12.6 g/dL (13.5-17.5); Lymphocytes # (auto) 1.5 10 ^3/uL (0.4-5.4); Lymphocytes % (auto) 13.6 % (10.0-50.0); Mean Corpuscular Hemoglobin 31.2 pg (28.0-32.0); Mean Corpuscular Volume 89.1 fL (80.0-100.0); Monocytes # (auto) 0.8 10 ^3/uL (0-1.3); Monocytes % (auto) 7.3 % (0.0-12.0); Neutrophils # (auto) 8.6 10 ^3/uL (1.6-8.6); Neutrophils % (auto) 77.4 % (37.0-80.0); Platelet Count (auto) 109 10^3/uL (140-450); Red Blood Cells 4.06 10^6/uL (4.5-5.90); Red Cell Distribution Width 14.2 % (11.8-14.3); White Blood Cell 11.1 10^3/uL (4.4-10.8)
[2024-06-20 04:01] LABS: Anion Gap 9 (5-15); Potassium 3.9 mmol/L (3.5-5.1)
[2024-06-20 04:02] LABS: Calcium 8.8 mg/dL (8.7-10.4)
[2024-06-20 04:07] LABS: Glucose 90 mg/dL (74-106)
[2024-06-20 04:10] LABS: Carbon Dioxide 33 mmol/L (20-31); Chloride 89 mmol/L (98-107); Sodium 131 mmol/L (136-145)
[2024-06-20 04:14] LABS: BUN/Creatinine Ratio 18.6 (10.0-20.0)
[2024-06-20 04:16] LABS: Blood Urea Nitrogen 38 mg/dL (9-23)
--- NOTE | 2024-06-20 04:39 | DVH ---
CHEST RADIOGRAPH Indication: Intubated Technique: Single frontal view of the chest was obtained Comparison: XY CHEST PORTABLE on DOS: 06/19/24 FINDINGS: Lines and Tubes: The endotracheal tube terminates 6.4 cm above the sherri. An enteric tube is seen to the level of the upper or mid thorax. Lungs: Bilateral airspace disease noted. Pleura: No effusion. No pneumothorax. Cardiomediastinal contours: Cardiomegaly. Bones: No acute osseous abnormality. IMPRESSION: 1. Enteric tube does not appear to pass below the left hemidiaphragm and is only visualized to the le wang of the upper to mid thorax. Clinical correlation recommended. 2. Bilateral airspace disease. 3. Cardiomegaly.
[2024-06-20 06:55] LABS: Base Excess 9.7 mmol/L (-2.0-3.0)
--- NOTE | 2024-06-20 09:28 | DVHPN2 ---
Progress Note Date Seen: Jun 20, 2024 Medical Necessity Reason Pt with a Central, PICC or Fol: No Subjective Other Systems: intubated sedated Objective vital signs Vital Sign Date Time Temp Pulse Resp B/P (MAP) Pulse Ox O2 Delivery O2 Flow Rate FiO2 06/20/24 08:29 83 18 96/58 (71) 94 90 06/20/24 08:00 Mechanical Ventilator+ 06/20/24 07:45 98.6 209.5 Total Intake and Output 06/19/24 06/19/24 06/20/24 15:00 23:00 07:00 Intake Total 682.316 ml 659.657 ml 462.783 ml Output Total 150 ml 675 ml Balance 682.316 ml 509.657 ml -212.217 ml medications Current Medications Medications Dose Ordered Sig/Patricia Route Start Time Stop Time Status Last Admin Dose Admin Norepinephrine Bitartrate 250 ml @ 3.75 mls/hr Q24H IV 06/18/24 19:15 06/20/24 02:37 11.25 MLS/HR Fentanyl Citrate 250 ml @ 2.5 mls/hr Q24H IV 06/18/24 19:45 06/19/24 19:45 20 MLS/HR Famotidine 20 mg Q12HR IV 06/18/24 22:00 06/19/24 22:18 20 MG Ondansetron HCl 4 mg Q4HP PRN IV 06/18/24 19:45 Acetaminophen 650 mg Q6HP PRN TX 06/18/24 19:45 Midazolam HCl 50 ml @ 10 mls/hr Q5H IV 06/18/24 20:30 06/20/24 06:53 6 MLS/HR Heparin Sodium (Porcine) 5,000 units Q12HR SC 06/18/24 22:00 06/19/24 22:19 5,000 UNITS Nitroglycerin 0.4 mg Q5MINP PRN SL 06/18/24 20:45 Morphine Sulfate 2 mg Q30M PRN IV 06/18/24 20:45 Propofol 100 ml @ 5.443 mls/ hr [id number] IV 06/18/24 22:30 06/20/24 08:07 10.886 MLS/HR Piperacillin Sod/ Tazobactam Sod 100 ml @ 25 mls/hr Q8HR IV 06/19/24 22:00 06/20/24 06:55 25 MLS/HR Furosemide 60 mg DAILY IV 06/20/24 10:00 UNV Amiodarone HCl 200 mg BID PO 06/20/24 10:00 UNV Examination: GENERAL:Abnormal, HEENT:Abnormal, LUNGS:Abnormal, CVS:Abnormal, ABDOMEN:Abnormal laboratory and microbiology Laboratory Tests 06/20/24 03:00 Test 06/20/24 03:00 Range/Units Serum Glucose 90 74-106 mg/dL Microbiology Date/Time Source Procedure Growth Status 06/19/24 00:02 Nose MRSA Screen - Final Complete 06/18/24 19:42 Sputum Gram Stain - Final Resulted 06/18/24 19:42 Sputum Respiratory Culture - Preliminary Resulted Problem List/Assessment/Plan Problem List/Assessment/Plan obesity cardiac arrest hypotension chronic afib resp failure neuro consult--[facility] po amio check echo head ct pending mild nstemi --prob 2/2 to arrest iv lasix daily 40 mins critical care time spent with RN Plan discussed with: Patient My Orders My Orders Orders - WILBER MURRAY MD Procedure Category Date Status Time Communication Order ORDERS 06/19/24 Transmitted 13:36 Furosemide Injection PHA 06/20/24 Logged (Lasix Injection) 10:00 Amiodarone Tablet PHA 06/20/24 Logged (Cordarone Tablet) 10:00 Dietary Evaluation Review Comments: 1) If patient remains NPO for more than 7 days, consider EN/TPN to meet at least 75% of estimated needs 2) If GI route is preferred, consider Jevity 1.2 @ goal rate of 60 mL/hr. Goal rate will provide 1728 kcals, 108g Pro, and 1162 mL free H2O per 24 hrs. TF regimen will meet ~ 80% daily esimated energy needs and exceed daily estinated protein needs 2) Advance patient diet when medically feasible to cardiac diet, pending [employer] approval 3) Collect HbA1c 4) Continue current plan of care Expected Outcomes/Goals: 1) patient to receive nutrition support within 7 days of NPO status 2) diet to advance 3) appetite and labs to improve 4) f/u in 3 days Date of Service: Jun 20, 2024 Billing Provider: WILBER MURRAY MD Common Visit Codes: NOT BILLABLE WILBER MURRAY MD Jun 20, 2024 09:28
[2024-06-20] MEDS: OPTISON 3ml Vial for INJ IV ONE (09:35)
[2024-06-20] MEDS ORDERED: Jevity 1.2 Cal/Fiber 1 Liter GT SCH (11:15)
--- NOTE | 2024-06-20 11:37 | DVHPN2 ---
Subjective Chemically sedated Reviewed: Care Plan, H&P, Labs, Previous Orders Changes from previous H/P or p: No Changes General: Per HPI Eyes: No Pain, No Vision change, No Conjunctivae inflammation, No Eyelid inflammation, No Other, No Redness ENT: No Ear pain, No Ear discharge, No Nose pain, No Nose discharge, No Nose congestion, No Mouth pain, No Mouth swelling, No Throat pain, No Throat swelling, No Other Cardiovascular: No Chest Pain, No Palpitations, No Orthopnea, No Paroxysmal Noc. Dyspnea, No Edema, No Lt Headedness, No Other Respiratory: No Cough, No Dry, No Shortness of breath, No SOB with excertion, No Wheezing, No Hemoptysis, No Pleuritic Pain, No Sputum, No Other Gastrointestinal: No Nausea, No Vomiting, No Abdominal Pain, No Diarrhea, No Constipation, No Melena, No Hematochezia, No Other Genitourinary: No Dysuria, No Frequency, No Incontinence, No Hematuria, No Retention, No Other Musculoskeletal: No other, No neck pain, No shoulder pain, No arm pain, No back pain, No hand pain, No leg pain, No foot pain Skin: No Rash, No Lesions, No Jaundice, No Bruising, No Other Objective Vitals Vital Signs Date Time Temp Pulse Resp B/P (MAP) Pulse Ox O2 Delivery O2 Flow Rate FiO2 06/20/24 10:22 76 18 93/60 (71) 95 90 06/20/24 10:00 Mechanical Ventilator+ 06/20/24 10:00 98.6 209.5 Intake/Output Intake and Output 06/20/24 07:00 Intake Total 1804.756 ml Output Total 825 ml Balance 979.756 ml Intake Oral 0 ml IV Total 1804.756 ml Output Urine Total 825 ml General Appearance: Other (sedated and intubated) HEENT: Atraumatic, PERRLA Lungs: Clear to auscultation, Normal air movement (Decreased breath sounds at bases), Other (Mechanical ventilation) Cardiovascular: Normal S1, Normal S2, Other (Atrial fibrillation) Abdomen: Normal bowel sounds, Soft, No tenderness, No hepatospenomegaly Genitourinary: No Apparent Abnormalities (Wick catheter) Musculoskeletal: Other (Unable to assess) Extremities: No clubbing, No cyanosis Neuro: Other (Chemically sedated) Skin: Dry, Intact Psych/Mental Status: Other (Chemically sedated) Medications Current Medications Medications Dose Ordered Sig/Patricia Route Start Time Stop Time Status Last Admin Dose Admin Norepinephrine Bitartrate 250 ml @ 3.75 mls/hr Q24H IV 06/18/24 19:15 06/20/24 02:37 11.25 MLS/HR Fentanyl Citrate 250 ml @ 2.5 mls/hr Q24H IV 06/18/24 19:45 06/19/24 19:45 20 MLS/HR Ondansetron HCl 4 mg Q4HP PRN IV 06/18/24 19:45 Acetaminophen 650 mg Q6HP PRN SD 06/18/24 19:45 Midazolam HCl 50 ml @ 10 mls/hr Q5H IV 06/18/24 20:30 06/20/24 06:53 6 MLS/HR Heparin Sodium (Porcine) 5,000 units Q12HR SC 06/18/24 22:00 06/19/24 22:19 5,000 UNITS Nitroglycerin 0.4 mg Q5MINP PRN SL 06/18/24 20:45 Morphine Sulfate 2 mg Q30M PRN IV 06/18/24 20:45 Propofol 100 ml @ 5.443 mls/ hr [id number] IV 06/18/24 22:30 06/20/24 08:07 10.886 MLS/HR Piperacillin Sod/ Tazobactam Sod 100 ml @ 25 mls/hr Q8HR IV 06/19/24 22:00 06/20/24 06:55 25 MLS/HR Furosemide 60 mg DAILY IV 06/20/24 10:00 Amiodarone HCl 200 mg BID PO 06/20/24 10:00 Doxycycline Hyclate 100 ml @ 50 mls/hr Q12H IV 06/20/24 11:15 Pantoprazole Sodium 40 mg BID IV 06/20/24 22:00 Enteral Nutritional Formula 1,000 ml 30ML/HR GT 06/20/24 11:15 Thiamine HCl 100 mg DAILY IV 06/20/24 11:15 Multivitamins 1 tab DAILY GT 06/21/24 10:00 Albuterol 2.5 mg Q6HR NEB 06/20/24 12:00 Ipratropium [place] 0.5 mg Q6HR NEB 06/20/24 12:00 Acetylcysteine 100 mg Q6HR NEB 06/20/24 12:00 06/21/24 06:01 Laboratory Results Laboratory Tests 06/20/24 03:00 Chemistry Test 06/20/24 03:00 Calcium Level 8.8 mg/dL (8.7-10.4) Urinalysis Test 06/18/24 22:11 Urine Color Yellow (Yellow) Urine Clarity Clear (Clear) Urine pH 6.5 (5.0-9.0) Urine Specific [place] 1.018 (1.001-1.035) Urine Protein 3+ (Negative) H Urine Ketones Negative (Negative) Urine Blood Negative /uL (Negative) Urine Nitrite Negative (Negative) Urine Bilirubin Negative (Negative) Urine Urobilinogen 4 mg/dL (Negative) H Urine Leukocyte Esterase Negative /uL (Negative) Urine RBC 6 /hpf (0 - 3) Urine Microscopic WBC 9 /HPF (0-3) H Urine Squamous Epithelial Cells Few /hpf (<5) Urine Bacteria Few /hpf (None Seen) H Urine Hyaline Casts Few /lpf (0 - 2) Urine Mucus Few (None Seen) Urine Glucose Normal mg/dL (Normal) Blood Gas Results Test 06/19/24 15:01 06/20/24 05:50 Arterial Blood pH 7.590 (7.350-7.450) 7.571 (7.350-7.450) FiO2 % 100.0 90.0 Microbiology Microbiology Date/Time Source Procedure Growth Status 06/19/24 00:02 Nose MRSA Screen - Final Complete 06/18/24 19:42 Sputum Gram Stain - Final Resulted 06/18/24 19:42 Sputum Respiratory Culture - Preliminary Resulted Labs and/or images reviewed: Labs reviewed by me, Image(s) reviewed by me Assessment/Plan Assessment/Plan Impression: -cardiopulmonary arrest at home -morbid obesity -alcoholism -acute hypoxic respiratory failure with mechanical ventilation -questionable acute seizure activity given cessation of alcohol four days prior -atrial fibrillation -metabolic encephalopathy -probable aspiration pneumonia Plan: -wean sedation to keep RASS -2 -continue current ventilator settings, wean FiO2 to keep saturation greater than 92% -add bronchodilators, Mucomyst -add MVI, thiamine daily -start Jevity 30 mL/hour -continue Zosyn, add doxycycline -continue anticoagulation with heparin -rate control with amiodarone, now switched to via G-tube -pulmonology consultation -neurology consultation -repeat labs, chest x-ray, ABG in a.m. -repeat CT scan of the head currently pending -long discussion made with the patient's daughter, son, was bedside. All questions answered Critical care time spent with patient discussing and formulating plan of care: 90 minutes. This does not include time spent performing procedures. This medical document was created using an electronic medical record system with [employer] dictation system. Although this document has been carefully reviewed, there may still be some phonetic and typographical errors. These areas are purely typographical due to imperfections of the software programs, and do not reflect any compromise in the patient's medical care. Plan discussed with: Patient, Spouse, Daughter, Son, Other (RN) My Orders Orders - GRETCHEN PEREZ NP Procedure Category Date Status Time Doxycycline PHA 06/20/24 In Process 100mg/100ml 11:15 Pantoprazole PHA 06/20/24 In Process (Protonix) 22:00 Nutritional PHA 06/20/24 In Process Supplements (Jevity 11:15 Thiamine Inj PHA 06/20/24 In Process 11:15 Multiple Vitamin PHA 06/21/24 In Process Tablet (Mvi Tab) 10:00 Comprehensive LAB 06/21/24 Verified Metabolic Panel 04:00 Complete Blood Count LAB 06/21/24 Verified 04:00 Albuterol Medneb PHA 06/20/24 In Process (Ventolin Medneb) 12:00 Ipratropium Medneb PHA 06/20/24 In Process (Atrovent Medneb) 12:00 Acetylcysteine PHA 06/20/24 In Process Inhalation 10% 12:00 Date of Service: Jun 20, 2024 Billing Provider: GRETCHEN PEREZ NP Common Visit Codes: [id number] CARE 30-74 MIN, [id number] CARE-EACH +30MIN GRETCHEN PEREZ NP Jun 20, 2024 11:37
[2024-06-20] MEDS: AMIODARONE HCL 200 MG TAB PO SCH (11:38)
[2024-06-20] MEDS: FUROSEMIDE 40 MG/4 ML VIAL IV SCH (11:38)
[2024-06-20] MEDS: ACETYLCYSTEINE 10 %(100MG/ML) SOL 4ML NEB SCH (12:00)
[2024-06-20] MEDS: ALBUTEROL SULF 2.5 MG/0.5ML(0.5%) NEB SOLN NEB SCH (12:04)
[2024-06-20] MEDS: IPRATROPIUM BROM 0.5 MG/2.5ML INH SOL NEB SCH (12:04)
[2024-06-20] MEDS: THIAMINE 100mg/ml INJ (200mg/2ml VIAL) IV SCH (12:51)
[2024-06-20] MEDS: DOXYCYCLINE 100MG/100ML 100 ML IV SCH (12:52)
--- NOTE | 2024-06-20 15:09 | DVHSR ---
APPROVED REPORT EXAM: Two-dimensional and M-mode echocardiogram with Doppler, color Doppler and Optison. Blood Pressure: 96/58 mmHg INDICATION CHF Contrast Details Indication: Endocardial border delineation RISK FACTORS Obesity: Height: 6'0", Weight: 368 DIMENSIONS LVDd5.7 (3.8-5.7cm)LA (2D)4.9 (1.9-4.0cm)Aortic Root4.2 (2.0-3.7cm) LVDs4.3 (2.5-4.0cm)LA (MM) (1.9-4.0cm)Aortic Cusp Exc1.6 (1.5-2.0cm) EF (%) 50.0 (55-70%)Rt. Atrium8.2 (1.9-4.0cm)Asc. Aorta cm IVSd1.3 (0.7-1.1cm)RV (D)7.4 (1.8-2.4cm) PWd1.3 (0.7-1.1cm) Mitral Valve MitralMitral Stenosis E wave0.67m/sMV Mean GR.mmHg E/A ratio0.02D MVAcm2 Aortic Valve Aortic ValveAortic Stenosis V10.70m/Vinny Mean GR.4mmHg V21.47m/Vinny Peak GR.9mmHg LVOT Diameter2.3 (1.8-2.4cm)Doppler AVA1.98cm2 Tricuspid Valve TR Velocity3.14m/s [id number] Other Information Technically limited study due to body habitus, patient position and on vent. Conclusion lvef 40-45% by visual estimate, optison used for LV opacification septal bowing and bounce noted severe RV enlargement and dysfunction noted moderate tricuspid regurg
[2024-06-20] MEDS: PANTOPRAZOLE 40 MG/10 ML VIAL INJ IV SCH (21:08)
--- NOTE | 2024-06-20 22:14 | DVHINCON2 ---
Date of service: Jun 20, [address] Wolff Reason for Consultation Doppler cataract arrest, downtime 20 minutes History of Present Illness Mr. Pete is a 64 years old gentleman with a history of hypertension, heart disease, congestive heart failure, atrial fibrillation, morbid obesity, he was brought to the hospital on 06/18/2024 with a chief company of cardiopulmonary arrest. At this time, he was in his feet, nonreactive, the history is obtained from his daughter, chart review and talking to his nurse On 06/18/2024, he was reported not feeling well, in the evening, the patient was collapsed at home and he was completely nonresponsive, the family/CPR right away and called 911, soon after, five five and police went over, and this helped CPR, with the EMS came over, the patient was found to have PE, and all the pulse was applied, the patient was came to the hospital with ongoing resuscitation, and he was resuscitated later, the total downtime is more than 20 minutes He snores loudly, his sleep is not refreshing, he has excessive daytime sleepiness, family suspected sleep apnea on him He was on Eliquis 5 mg b.i.d. at home for atrial fibrillation He was on sedation, pressor drip, FiO2:90% [phone], Urinalysis, 06/18/2024: WBC: 9, urine leukocyte esterase: Negative UDS, 06/18/2024: Negative Plasma alcohol, 06/18/2024: <3 ABG 06/18/2024: Compensated respiratory acidosis WBC/HB/PLT/MCV, 06/20/2024: 11.1/12.6/109/89.1 BUN/CR, 06/20/2024: 38/2.04 Troponin one high sensitivity, 06/18/2024: 61, 154, 585 A flutter, 06/18/2024: Atrial flutter Echocardiogram, 06/20/2024: lvef 40-45% by visual estimate, optison used for LV opacification septal bowing and bounce noted severe RV enlargement and dysfunction noted moderate tricuspid regurg Chest x-ray, 06/18/24: 1. Endotracheal tube 1 cm above the sherri. 2. Cardiomegaly 3. Pulmonary vascular congestion bilaterally Chest x-ray, 06/19/2024: 1. The ETT is in satisfactory position. 2. CHF, small bilateral pleural effusions moderate bilateral lower lung zone pulmonary opacities may represent edema or pneumonia. Recommend clinical and biochemical c orrelation CT head, 06/18/2024: 1. No acute intracranial hemorrhage 2. No CT findings of territorial ischemia. 3. No CT findings of displaced skull fracture Past Medical History Hypertension, heart disease, morbid obesity Past Surgical History Non Family History Heart disease, kidney failure Social History He was a tobacco smoker, he used to drink alcohol heavily, quit recently. No history of drug abuse Allergies: Coded Allergies: Amlodipine (Verified Allergy, Mild, 06/19/24) LOWER EXT. SWELLING Current Medications Current Medications Medications (Trade) Dose Ordered Sig/Patricia Route PRN Reason Start Time Stop Time Status Last Admin Furosemide (Lasix Injection) 60 mg DAILY IV 06/20/24 10:00 06/20/24 11:38 Amiodarone HCl (Cordarone Tablet) 200 mg BID PO 06/20/24 10:00 06/20/24 21:08 Doxycycline Hyclate 100 ml @ 50 mls/hr Q12H IV 06/20/24 11:15 06/20/24 12:52 Pantoprazole Sodium (Protonix) 40 mg BID IV 06/20/24 22:00 06/20/24 21:08 Enteral Nutritional Formula (Jevity 1.2 Nikita/ Fiber) 1,000 ml 30ML/HR GT 06/20/24 11:15 Thiamine HCl 100 mg DAILY IV 06/20/24 11:15 06/20/24 12:51 Multivitamins (Mvi Tab) 1 tab DAILY GT 06/21/24 10:00 Albuterol (Ventolin Medneb) 2.5 mg Q6HR NEB 06/20/24 12:00 06/20/24 18:41 Ipratropium [place] (Atrovent Medneb) 0.5 mg Q6HR NEB 06/20/24 12:00 06/20/24 18:41 Acetylcysteine (Mucomyst Inahalation 10%) 100 mg Q6HR NEB 06/20/24 12:00 06/21/24 06:01 06/20/24 18:42 Review of Systems As above, the other systems are negative Vital Signs Vital Signs Date Time Temp Pulse Resp B/P (MAP) Pulse Ox O2 Delivery O2 Flow Rate FiO2 06/20/24 20:34 99/63 06/20/24 20:15 99 18 95 90 06/20/24 18:42 Mechanical Ventilator+ 06/20/24 16:00 98.3 98.3 Physical Exam The patient is well-nourished and well-developed with no distress. The patient is intubated HEENT: Normocephalic, neck supple, no carotid bruits Lungs: Clear to auscultation Cardiovascular: Regular rate and region, S1, S2, no murmurs Abdomen: Soft, nontender, normal bowel sounds MENTAL STATUS: Not responsive to the surroundings, CRANIAL NERVES: Pupils are equal, round and nonreactive.There are corneal reflexes and doll's eyes phenomenon. No signs of facial weakness. There are weak gagging or coughing reflexes SENSATION: No responses to pain stimuli. MOTOR: Normal tone in the upper and lower extremity. Normal muscle bulk. No fasciculations. No spontaneous movement. REFLEXES: Deep tendon reflexes are symmetrical. No pathological reflexes. CEREBELLAR/COORDINATION: Deferred GAIT/STATION: deferred. Labs/Diagnostic Data Labs Test 06/20/24 05:50 06/20/24 03:00 06/19/24 03:43 06/18/24 22:11 Range/Units Blood Gas Specimen Type Arterial Blood Gas Sample Site Right radial Blood Gas Patient Temperature 37.0 Arterial Blood Date Drawn [id number] Arterial Blood pH 7.571 *H 7.350-7.450 Arterial Blood Partial Pressure CO2 35.8 35.0-48.0 mmHg Arterial Blood Partial Pressure O2 71.7 L 83.0-108.0 mmHg Arterial Blood HCO3 32.1 H 21.0-28.0 mmol/L Arterial Blood Oxygen Saturation 94.2 94.0-98.0 % Arterial Blood Base Excess 9.7 H -2.0-3.0 mmol/L Arterial Blood Oxyhemoglobin 93.4 L 94.0-98.0 % Arterial Blood Carboxyhemoglobin 0.6 0.5-1.5 % Arterial Blood Methemoglobin 0.3 0.0-1.5 % Thom Test Modified Blood Gas Total Hemoglobin 13.80 13.5-17.5 g/dL Blood Gas Set Respiration Rate 18.0 Blood Gas Modality Vent - ac FiO2 % 90.0 Blood Gas Tidal Volume 550.0 Blood Gas PEEP or CPAP 10.0 Blood Gas Critical Value Read Back Yes Blood Gas Notified Whom barb Sher md Blood Gas Notified Time [id number] Blood Gas Notified By garland Montemayor rrt White Blood Count 11.1 H 4.4-10.8 10^3/uL Red Blood Count 4.06 L 4.5-5.90 10^6/uL Hemoglobin 12.6 L 13.5-17.5 g/dL Hematocrit 36.1 L 41.0-53.0 % Mean Corpuscular Volume 89.1 80.0-100.0 fL Mean Corpuscular Hemoglobin 31.2 28.0-32.0 pg Mean Corpuscular Hemoglobin Concent 35.0 32.0-36.0 g/dL Red Cell Distribution Width 14.2 11.8-14.3 % Platelet Count 109 L 140-450 10^3/uL Mean Platelet Volume 8.2 6.9-10.8 fL Neutrophils (%) (Auto) 77.4 37.0-80.0 % Lymphocytes (%) (Auto) 13.6 10.0-50.0 % Monocytes (%) (Auto) 7.3 0.0-12.0 % Eosinophils (%) (Auto) 1.3 0.0-7.0 % Basophils (%) (Auto) 0.4 0.0-2.0 % Neutrophils # (Auto) 8.6 1.6-8.6 10 ^3/uL Lymphocytes # (Auto) 1.5 0.4-5.4 10 ^3/uL Monocytes # (Auto) 0.8 0-1.3 10 ^3/uL Eosinophils # (Auto) 0.1 0-0.8 10 ^3/uL Basophils # (Auto) 0 0-0.2 10 ^3/uL Nucleated Red Blood Cells 0.0 % Sodium Level 131 L 136-145 mmol/L Potassium Level 3.9 3.5-5.1 mmol/L Chloride Level 89 L 98-107 mmol/L Carbon Dioxide Level 33 H 20-31 mmol/L Anion Gap 9 5-15 Blood Urea Nitrogen 38 H 9-23 mg/dL Creatinine 2.04 H 0.700-1.30 mg/dL Glomerular Filtration Rate Calc 35 >90 mL/min BUN/Creatinine Ratio 18.6 10.0-20.0 Serum Glucose 90 74-106 mg/dL Calcium Level 8.8 8.7-10.4 mg/dL Total Bilirubin 2.0 H 0.2-1.0 mg/dL Aspartate Amino Transferase (AST) 63 H 13-40 U/L Alanine Aminotransferase (ALT) 28 7-40 U/L Alkaline Phosphatase 60 46-116 U/L Total Protein 5.4 L 5.7-8.2 g/dL Albumin 3.0 L 3.2-4.8 g/dL Urine Color Yellow Yellow Urine Clarity Clear Clear Urine pH 6.5 5.0-9.0 Urine Specific [place] 1.018 1.001-1.035 Urine Protein 3+ H Negative Urine Ketones Negative Negative Urine Blood Negative Negative /uL Urine Nitrite Negative Negative Urine Bilirubin Negative Negative Urine Urobilinogen 4 H Negative mg/dL Urine Leukocyte Esterase Negative Negative /uL Urine RBC 6 0 - 3 /hpf Urine Microscopic WBC 9 H 0-3 /HPF Urine Squamous Epithelial Cells Few <5 /hpf Urine Bacteria Few H None Seen /hpf Urine Hyaline Casts Few 0 - 2 /lpf Urine Mucus Few None Seen Urine Glucose Normal Normal mg/dL Urine Opiates Screen Neg NEGATIVE Urine Fentanyl Screen Neg NEGATIVE Urine Barbiturates Screen Neg NEGATIVE Urine Phencyclidine Screen Neg NEGATIVE Urine Amphetamines Screen Neg NEGATIVE Urine Benzodiazepines Screen Neg NEGATIVE Urine Cocaine Screen Neg NEGATIVE Urine Cannabinoids Screen Neg NEGATIVE Test 06/18/24 22:07 06/18/24 19:13 Range/Units Troponin I High Sensitivity 585 *H </=54 ng/L B-Type Natriuretic Peptide 745.94 0-100 pg/mL Plasma/Serum Blood Alcohol < 3.0 <10 mg/dL Microbiology Date/Time Source Procedure Growth Status 06/19/24 00:02 Nose MRSA Screen - Final Complete 06/18/24 19:42 Sputum Gram Stain - Final Resulted 06/18/24 19:42 Sputum Respiratory Culture - Preliminary Resulted Assessment Coma Hypoxic encephalopathy Metabolic encephalopathy Toxic encephalopathy Cardiopulmonary arrest Acute respiratory failure Morbid obesity Sleep-related breathing disorder Congestive heart failure AFib Congestive heart failure History of alcohol abuse Plan/Recommendation Monitoring Supportive treatment Follow-up lab EEG Follow-up CT head ICU care Stabilize vitals/pressor drip Respiratory support/vent management Oxygen IV antibiotics Thiamine supplementation She was prophylaxis/famotidine/pantoprazole DVT prophylaxis/heparin subQ q.12 hours Cardiology on case More recommendation per clinical course Prognosis: Guarded Critical Care spent is 45 minutes This medical document was created using an electronic medical record system with [employer] computerized dictation system. Although this document has been carefully reviewed, there may still be some phonetic and typographical errors. These areas are purely typographical due to imperfections of the software programs, and do not reflect any compromise in the patient's medical care. Plan discussed with: Daughter, Other LOBO APARICIO MD Jun 20, 2024 22:14
[2024-06-21] VITALS (108 sets, daily range): BP systolic 64–142; BP diastolic 29–100; PULSE 91–128; RESP 14–21; TEMP 98–100.3; O2SAT 79–100
[2024-06-21 02:25] LABS: Base Excess 7.2 mmol/L (-2.0-3.0)
--- NOTE | 2024-06-21 03:24 | DVH ---
CHEST RADIOGRAPH Indication: PROTOCOL Technique: Single frontal view of the chest was obtained Comparison: XY CHEST PORTABLE on DOS: 06/20/24, XY CHEST PORTABLE on DOS: 06/19/24, XY CHEST PORTABLE on DOS: 06/18/24 IMPRESSION: There is marked cardiomegaly. Mild pulmonary vascular congestion. No pneumothorax. Support lines and tubes are overpenetrated and difficult to assess.
[2024-06-21 03:38] LABS: Basophils # (auto) 0.1 10 ^3/uL (0-0.2); Basophils % (auto) 0.6 % (0.0-2.0); Eosinophils # (auto) 0.3 10 ^3/uL (0-0.8); Eosinophils % (auto) 2.2 % (0.0-7.0); Hematocrit 39.3 % (41.0-53.0); Hemoglobin 13.3 g/dL (13.5-17.5); Lymphocytes # (auto) 1.4 10 ^3/uL (0.4-5.4); Lymphocytes % (auto) 9.7 % (10.0-50.0); Mean Corpuscular Hemoglobin 30.8 pg (28.0-32.0); Mean Corpuscular Hgb Conc. 33.9 g/dL (32.0-36.0); Mean Corpuscular Volume 90.9 fL (80.0-100.0); Monocytes # (auto) 1.3 10 ^3/uL (0-1.3); Monocytes % (auto) 8.7 % (0.0-12.0); Neutrophils # (auto) 11.6 10 ^3/uL (1.6-8.6); Neutrophils % (auto) 78.8 % (37.0-80.0); Nucleated Red Blood Cells % 0.1 %; Platelet Count (auto) 106 10^3/uL (140-450); Red Blood Cells 4.32 10^6/uL (4.5-5.90); Red Cell Distribution Width 14.1 % (11.8-14.3); White Blood Cell 14.7 10^3/uL (4.4-10.8)
[2024-06-21 03:45] LABS: Alanine Aminotransferase 30 U/L (7-40); Alkaline Phosphatase 70 U/L (46-116); Anion Gap 12 (5-15); BUN/Creatinine Ratio 14.8 (10.0-20.0); Calcium 9.2 mg/dL (8.7-10.4); Glucose 95 mg/dL (74-106); Magnesium 1.6 mg/dL (1.6-2.6)
[2024-06-21 03:56] LABS: Chloride 89 mmol/L (98-107); Potassium 3.4 mmol/L (3.5-5.1); Sodium 132 mmol/L (136-145)
[2024-06-21 03:57] LABS: Albumin 2.9 g/dL (3.2-4.8); Aspartate Aminotransferase 78 U/L (13-40); Bilirubin, Total 3.6 mg/dL (0.2-1.0); Blood Urea Nitrogen 33 mg/dL (9-23); Carbon Dioxide 31 mmol/L (20-31); Total Protein 5.7 g/dL (5.7-8.2)
--- NOTE | 2024-06-21 06:20 | DVH ---
EXAM: XR Chest, 1 View CLINICAL INDICATION: PROTOCOL TECHNIQUE: Frontal view of the chest. COMPARISON: XY CHEST PORTABLE on DOS: 06/21/24, XY CHEST PORTABLE on DOS: 06/20/24, XY CHEST PORTABLE on DOS: 06/19/24, XY CHEST PORTABLE on DOS: 06/18/24 FINDINGS: LUNGS AND PLEURAL SPACES: See below. HEART: Cardiomegaly with moderate congestion. MEDIASTINUM: Unremarkable. Normal mediastinal contour. BONES/JOINTS: Unremarkable. No acute fracture. TUBES, LINES AND DEVICES: The endotracheal tube (ETT) is in satisfactory position. OTHER FINDINGS: . Suboptimal exam secondary to underpenetration. IMPRESSION: Cardiomegaly with moderate congestion.
[2024-06-21 06:59] LABS: Base Excess 10.4 mmol/L (-2.0-3.0)
--- NOTE | 2024-06-21 09:00 | DVHPN2 ---
Progress Note - Dictate Date Seen: Jun 21, 2024 Medical Necessity Reason Pt with a Central, PICC or Fol: No Subjective Mr. Pete is a 64 years old gentleman with a history of hypertension, heart disease, congestive heart failure, atrial fibrillation, morbid obesity, he was brought to the hospital on 06/18/2024 with a chief company of cardiopulmonary arrest. I have seen and examined the patient, I have talked to his nurse, son, his granddaughter is in the room. He remained completely nonresponsive, with unstable vital and pulse ox He bites tube sometimes He was on Eliquis 5 mg b.i.d. at home for atrial fibrillation Fentanyl 100 mcg/hour, levo 20 mcg/min, FiO2: 100% Urinalysis, 06/18/2024: WBC: 9, urine leukocyte esterase: Negative UDS, 06/18/2024: Negative Plasma alcohol, 06/18/2024: <3 ABG 06/18/2024: Compensated respiratory acidosis 06/21/2024: Hypoxia, metabolic alkalosis WBC/HB/PLT/MCV, 06/20/2024: 11.1/12.6/109/89.1, 06/21/2024: 14.7/13.3/106/90.9 BUN/CR, 06/20/2024: 38/2.04, 06/21/2024: 33/2.23 Troponin one high sensitivity, 06/18/2024: 61, 154, 585 TBI/AST/ALT/AP, 06/18/2024: 1.3/33/25/69, 06/21/2024: 3.6/78/30/70 EEG, 06/18/2024: Atrial flutter Echocardiogram, 06/20/2024: lvef 40-45% by visual estimate, optison used for LV opacification septal bowing and bounce noted severe RV enlargement and dysfunction noted moderate tricuspid regurg Chest x-ray, 06/18/24: 1. Endotracheal tube 1 cm above the sherri. 2. Cardiomegaly 3. Pulmonary vascular congestion bilaterally Chest x-ray, 06/19/2024: 1. The ETT is in satisfactory position. 2. CHF, small bilateral pleural effusions moderate bilateral lower lung zone pulmonary opacities may represent edema or pneumonia. Recommend clinical and biochemical correlation Chest x-ray, 06/21/2024: There is marked cardiomegaly. Mild pulmonary vascular congestion. No pneumothorax. Support lines and tubes are overpenetrated and difficult to assess. CT head, 06/18/2024: 1. No acute intracranial hemorrhage 2. No CT findings of territorial ischemia. 3. No CT findings of displaced skull fracture vital signs Vital Sign Date Time Temp Pulse Resp B/P (MAP) Pulse Ox O2 Delivery O2 Flow Rate FiO2 06/21/24 08:30 108 18 118/74 (89) 93 06/21/24 07:58 100 06/21/24 06:00 Mechanical Ventilator+ 06/21/24 00:00 98.0 98.0 Total Intake and Output 06/20/24 06/20/24 06/21/24 14:59 22:59 06:59 Intake Total 475.274 ml 557.50 ml 934.5 ml Output Total 2350 ml 2950 ml Balance 475.274 ml -1792.50 ml -2015.5 ml medications Current Medications Medications Dose Ordered Sig/Patricia Route Start Time Stop Time Status Last Admin Dose Admin Norepinephrine Bitartrate 250 ml @ 3.75 mls/hr Q24H IV 06/18/24 19:15 06/21/24 05:36 41.25 MLS/HR Fentanyl Citrate 250 ml @ 2.5 mls/hr Q24H IV 06/18/24 19:45 06/20/24 14:50 10 MLS/HR Ondansetron HCl 4 mg Q4HP PRN IV 06/18/24 19:45 Acetaminophen 650 mg Q6HP PRN ME 06/18/24 19:45 Midazolam HCl 50 ml @ 10 mls/hr Q5H IV 06/18/24 20:30 06/21/24 03:43 5 MLS/HR Heparin Sodium (Porcine) 5,000 units Q12HR SC 06/18/24 22:00 06/20/24 21:13 5,000 UNITS Nitroglycerin 0.4 mg Q5MINP PRN SL 06/18/24 20:45 Morphine Sulfate 2 mg Q30M PRN IV 06/18/24 20:45 Propofol 100 ml @ 5.443 mls/ hr [id number] IV 06/18/24 22:30 06/20/24 08:07 10.886 MLS/HR Piperacillin Sod/ Tazobactam Sod 100 ml @ 25 mls/hr Q8HR IV 06/19/24 22:00 06/21/24 05:52 25 MLS/HR Furosemide 60 mg DAILY IV 06/20/24 10:00 06/20/24 11:38 60 MG Amiodarone HCl 200 mg BID PO 06/20/24 10:00 06/20/24 21:08 200 MG Doxycycline Hyclate 100 ml @ 50 mls/hr Q12H IV 06/20/24 11:15 06/20/24 23:28 50 MLS/HR Pantoprazole Sodium 40 mg BID IV 06/20/24 22:00 06/20/24 21:08 40 MG Enteral Nutritional Formula 1,000 ml 30ML/HR GT 06/20/24 11:15 Thiamine HCl 100 mg DAILY IV 06/20/24 11:15 06/20/24 12:51 100 MG Multivitamins 1 tab DAILY GT 06/21/24 10:00 Albuterol 2.5 mg Q6HR NEB 06/20/24 12:00 06/21/24 06:23 2.5 MG Ipratropium [place] 0.5 mg Q6HR NEB 06/20/24 12:00 06/21/24 06:23 0.5 MG objective The patient is well-nourished and well-developed with no distress. The patient is intubated MENTAL STATUS: Subjective CRANIAL NERVES: Pupils are equal, round and nonreactive.There are corneal reflexes and doll's eyes phenomenon. No signs of facial weakness. There are weak gagging or coughing reflexes SENSATION: No responses to pain stimuli. MOTOR: Normal tone in the upper and lower extremity. Normal muscle bulk. No fasciculations. No spontaneous movement. REFLEXES: Deep tendon reflexes are symmetrical. No pathological reflexes. CEREBELLAR/COORDINATION: Deferred GAIT/STATION: deferred laboratory and microbiology Laboratory Tests 06/21/24 03:00 Test 06/21/24 03:00 Range/Units Serum Glucose 95 74-106 mg/dL Problem List Coma Hypoxic encephalopathy Metabolic encephalopathy Toxic encephalopathy Cardiopulmonary arrest Acute respiratory failure Morbid obesity Sleep-related breathing disorder Congestive heart failure AFib Congestive heart failure History of alcohol abuse Assessment/Plan Monitoring Supportive treatment Follow-up lab EEG Extremity venous study for evidence of DVT in the legs Follow-up CT head ICU care Stabilize vitals/pressor drip Respiratory support/vent management Oxygen IV antibiotics Thiamine supplementation She was prophylaxis/famotidine/pantoprazole DVT prophylaxis/heparin subQ q.12 hours Cardiology on case More recommendation per clinical course This medical document was created using an electronic medical record system with [email or web address] dictation system. Although this document has been carefully reviewed, there may still be some phonetic and typographical errors. These areas are purely typographical due to imperfections of the software programs, and do not reflect any compromise in the patient's medical care. Prognosis guarded Dietary Evaluation Review Comments: 1) If patient remains NPO for more than 7 days, consider EN/TPN to meet at least 75% of estimated needs 2) If GI route is preferred, consider Jevity 1.2 @ goal rate of 60 mL/hr. Goal rate will provide 1728 kcals, 108g Pro, and 1162 mL free H2O per 24 hrs. TF regimen will meet ~ 80% daily esimated energy needs and exceed daily estinated protein needs 2) Advance patient diet when medically feasible to cardiac diet, pending INFORMATION ASSISTANT approval 3) Collect HbA1c 4) Continue current plan of care Expected Outcomes/Goals: 1) patient to receive nutrition support within 7 days of NPO status 2) diet to advance 3) appetite and labs to improve 4) f/u in 3 days Plan discussed with: Son, Other Critical Care Time(min): 35 LOBO APARICIO MD Jun 21, 2024 09:00
[2024-06-21] MEDS: MULTIPLE VITAMIN TAB GT SCH (09:26)
[2024-06-21] MEDS: ONDANSETRON HCL 4 MG/2 ML VIAL IV PRN (09:27)
[2024-06-21] MEDS: POTASSIUM EFFERVESENT TAB 25 MEQ PO ONE (09:33)
[2024-06-21] MEDS: LINEZOLID 600MG/300ML 300 ML IV SCH (09:34)
--- NOTE | 2024-06-21 09:47 | DVHPN2 ---
Subjective Chemically sedated Reviewed: Care Plan, H&P, Labs, Previous Orders Changes from previous H/P or p: No Changes General: Per HPI Eyes: No Pain, No Vision change, No Conjunctivae inflammation, No Eyelid inflammation, No Other, No Redness ENT: No Ear pain, No Ear discharge, No Nose pain, No Nose discharge, No Nose congestion, No Mouth pain, No Mouth swelling, No Throat pain, No Throat swelling, No Other Cardiovascular: No Chest Pain, No Palpitations, No Orthopnea, No Paroxysmal Noc. Dyspnea, No Edema, No Lt Headedness, No Other Respiratory: No Cough, No Dry, No Shortness of breath, No SOB with excertion, No Wheezing, No Hemoptysis, No Pleuritic Pain, No Sputum, No Other Gastrointestinal: No Nausea, No Vomiting, No Abdominal Pain, No Diarrhea, No Constipation, No Melena, No Hematochezia, No Other Genitourinary: No Dysuria, No Frequency, No Incontinence, No Hematuria, No Retention, No Other Musculoskeletal: No other, No neck pain, No shoulder pain, No arm pain, No back pain, No hand pain, No leg pain, No foot pain Skin: No Rash, No Lesions, No Jaundice, No Bruising, No Other Objective Vitals Vital Signs Date Time Temp Pulse Resp B/P (MAP) Pulse Ox O2 Delivery O2 Flow Rate FiO2 06/21/24 09:27 133/77 06/21/24 09:00 117 18 94 06/21/24 08:00 100 06/21/24 06:00 Mechanical Ventilator+ 06/21/24 00:00 98.0 98.0 Intake/Output Intake and Output 06/21/24 07:00 Intake Total 2050.408 ml Output Total 5300 ml Balance -3249.592 ml Intake Oral 60 ml IV Total 1938.408 ml Tube Feeding 52 ml Output Urine Total 5300 ml General Appearance: Other (sedated and intubated) HEENT: Atraumatic, Other (Pupils 1 mm with no response) Lungs: Clear to auscultation, Normal air movement (Decreased breath sounds at bases), Other (Mechanical ventilation) Cardiovascular: Normal S1, Normal S2, Other (Atrial fibrillation) Abdomen: Normal bowel sounds, Soft, No tenderness, No hepatospenomegaly Genitourinary: No Apparent Abnormalities (Wick catheter) Musculoskeletal: Other (Unable to assess) Extremities: No clubbing, No cyanosis Neuro: Other (Chemically sedated) Skin: Dry, Intact, Warm Psych/Mental Status: Other (Chemically sedated) Medications Current Medications Medications Dose Ordered Sig/Patricia Route Start Time Stop Time Status Last Admin Dose Admin Norepinephrine Bitartrate 250 ml @ 3.75 mls/hr Q24H IV 06/18/24 19:15 06/21/24 05:36 41.25 MLS/HR Fentanyl Citrate 250 ml @ 2.5 mls/hr Q24H IV 06/18/24 19:45 06/20/24 14:50 10 MLS/HR Ondansetron HCl 4 mg Q4HP PRN IV 06/18/24 19:45 06/21/24 09:27 4 MG Acetaminophen 650 mg Q6HP PRN SC 06/18/24 19:45 Midazolam HCl 50 ml @ 10 mls/hr Q5H IV 06/18/24 20:30 06/21/24 03:43 5 MLS/HR Heparin Sodium (Porcine) 5,000 units Q12HR SC 06/18/24 22:00 06/20/24 21:13 5,000 UNITS Nitroglycerin 0.4 mg Q5MINP PRN SL 06/18/24 20:45 Morphine Sulfate 2 mg Q30M PRN IV 06/18/24 20:45 Propofol 100 ml @ 5.443 mls/ hr [id number] IV 06/18/24 22:30 06/20/24 08:07 10.886 MLS/HR Furosemide 60 mg DAILY IV 06/20/24 10:00 06/21/24 09:27 60 MG Amiodarone HCl 200 mg BID PO 06/20/24 10:00 06/21/24 09:26 200 MG Pantoprazole Sodium 40 mg BID IV 06/20/24 22:00 06/21/24 09:28 40 MG Enteral Nutritional Formula 1,000 ml 30ML/HR GT 06/20/24 11:15 Thiamine HCl 100 mg DAILY IV 06/20/24 11:15 06/21/24 09:29 100 MG Multivitamins 1 tab DAILY GT 06/21/24 10:00 06/21/24 09:26 1 TAB Albuterol 2.5 mg Q6HR NEB 06/20/24 12:00 06/21/24 06:23 2.5 MG Ipratropium [place] 0.5 mg Q6HR NEB 06/20/24 12:00 06/21/24 06:23 0.5 MG Linezolid 300 ml @ 150 mls/hr Q12HR IV 06/21/24 10:00 06/21/24 09:34 150 MLS/HR Meropenem 50 ml @ 17 mls/hr Q12HR IV 06/21/24 10:00 Laboratory Results Laboratory Tests 06/21/24 03:00 Chemistry Test 06/21/24 03:00 Albumin 2.9 g/dL (3.2-4.8) L Calcium Level 9.2 mg/dL (8.7-10.4) Magnesium Level 1.6 mg/dL (1.6-2.6) Total Protein 5.7 g/dL (5.7-8.2) LFT Test 06/21/24 03:00 Alanine Aminotransferase (ALT) 30 U/L (7-40) Alkaline Phosphatase 70 U/L (46-116) Aspartate Amino Transferase (AST) 78 U/L (13-40) H Total Bilirubin 3.6 mg/dL (0.2-1.0) H HgA1c, TSH Test 06/21/24 03:00 Hemoglobin A1c 5.4 % A1C (<5.7) Urinalysis Test 06/18/24 22:11 Urine Color Yellow (Yellow) Urine Clarity Clear (Clear) Urine pH 6.5 (5.0-9.0) Urine Specific [place] 1.018 (1.001-1.035) Urine Protein 3+ (Negative) H Urine Ketones Negative (Negative) Urine Blood Negative /uL (Negative) Urine Nitrite Negative (Negative) Urine Bilirubin Negative (Negative) Urine Urobilinogen 4 mg/dL (Negative) H Urine Leukocyte Esterase Negative /uL (Negative) Urine RBC 6 /hpf (0 - 3) Urine Microscopic WBC 9 /HPF (0-3) H Urine Squamous Epithelial Cells Few /hpf (<5) Urine Bacteria Few /hpf (None Seen) H Urine Hyaline Casts Few /lpf (0 - 2) Urine Mucus Few (None Seen) Urine Glucose Normal mg/dL (Normal) Blood Gas Results Test 06/21/24 02:20 06/21/24 06:52 Arterial Blood pH 7.511 (7.350-7.450) 7.522 (7.350-7.450) FiO2 % 100.0 100.0 Microbiology Microbiology Date/Time Source Procedure Growth Status 06/19/24 00:02 Nose MRSA Screen - Final Complete 06/18/24 19:42 Sputum Gram Stain - Final Resulted 06/18/24 19:42 Sputum Respiratory Culture - Preliminary Resulted Labs and/or images reviewed: Labs reviewed by me, Image(s) reviewed by me Assessment/Plan Assessment/Plan Impression: -cardiopulmonary arrest at home -morbid obesity -alcoholism -acute hypoxic respiratory failure with mechanical ventilation -questionable acute seizure activity given cessation of alcohol four days prior -atrial fibrillation -metabolic encephalopathy -probable aspiration pneumonia Plan: -events: Patient had episode of emesis as well as worsening hypoxia. Patient now 100% FiO2 with a PEEP of 10. Echocardiogram reveals septal bowing with tricuspid regurgitation. No documentation of RV strain. Unable to send patient for CT angiogram of the chest. We will start full-dose anticoagulation with heparin drip -continue current ventilator settings, wean FiO2 to keep saturation greater than 92% -add bronchodilators, Mucomyst -continue MVI and thiamine -hold tube feeding given emesis. Start IV Reglan -patient has worsening leukocytosis. No fevers noted. We will broaden antibiotic therapy to meropenem and Zyvox -nephrology consultation for worsening acute kidney injury -continue anticoagulation with heparin -pulmonology consultation -neurology consultation -repeat labs, chest x-ray, ABG in a.m. -repeat CT scan of the head currently pending -discussed plan of care with the patient's son who was bedside. All questions answered. Critical care time spent with patient discussing and formulating plan of care: 40 minutes. This does not include time spent performing procedures. This medical document was created using an electronic medical record system with [employer] dictation system. Although this document has been carefully reviewed, there may still be some phonetic and typographical errors. These areas are purely typographical due to imperfections of the software programs, and do not reflect any compromise in the patient's medical care. Plan discussed with: Patient, Son, Other (RN) My Orders Orders - GRETCHEN PEREZ NP Procedure Category Date Status Time Pantoprazole PHA 06/20/24 In Process (Protonix) 22:00 Nutritional PHA 06/20/24 In Process Supplements (Jevity 11:15 Thiamine Inj PHA 06/20/24 In Process 11:15 Multiple Vitamin PHA 06/21/24 In Process Tablet (Mvi Tab) 10:00 Albuterol Medneb PHA 06/20/24 In Process (Ventolin Medneb) 12:00 Ipratropium Medneb PHA 06/20/24 In Process (Atrovent Medneb) 12:00 Apply Barrier Cream MITCH 06/20/24 In Process 13:17 Chest Portable XY 06/20/24 Resulted 04:00 Chest Portable XY 06/21/24 Resulted 04:00 Abg W/ Co-Ox RT 06/21/24 Logged 04:00 *[facility] CONS 06/21/24 Transmitted -[place] 08:52 PTPTT LAB 06/21/24 Logged 08:52 D-Dimer LAB 06/21/24 Logged 08:52 Blood Culture GLENN 06/21/24 Logged 08:52 Linezolid 600mg/300ml PHA 06/21/24 In Process (Zyvox) 10:00 Meropenem 500mg Ivpb PHA 06/21/24 In Process (Merrem 500mg/Ns) 10:00 Basic Metabolic Panel LAB 06/22/24 Verified 04:00 Complete Blood Count LAB 06/22/24 Verified 04:00 Bilat Lower Dvt US 06/21/24 Verified 09:40 Platelet Monitoring [facility] 06/21/24 Verified 09:40 Vte Protocol Initiated [facility] 06/21/24 Verified 09:40 Heparin Per [facility] 06/21/24 Verified Standardized Proce 09:40 Discontinue All Im [facility] 06/21/24 Verified Injections 09:40 Heparin Sodium [facility] 06/21/24 Verified (Porcine) 09:45 Heparin Drip/D5w [facility] 06/21/24 Verified 100units/Ml 09:45 Metoclopramide [facility] 06/21/24 Verified Injection (Reglan 14:00 Date of Service: Jun 21, 2024 Billing Provider: GRETCHEN PEREZ NP Common Visit Codes: [id number] CARE 30-74 MIN GRETCHEN PEREZ NP Jun 21, 2024 09:47
--- NOTE | 2024-06-21 10:40 | DVHINCON2 ---
Date of service: Jun 21, 2024 Referring Physician Evangelista Juarez, nurse practitioner Reason for Consultation Acute kidney injury History of Present Illness Patient is a 64-year-old male with past medical history of atrial fibrillation and chronic alcohol abuse is admitted on June 18 status post cardiopulmonary arrest at home. Hospital course was notable for increasing BUN and creatinine nephrology is consulted for acute kidney injury Past Medical History Atrial fibrillation Alcohol abuse Past Surgical History Unknown Allergies: Coded Allergies: Amlodipine (Verified Allergy, Mild, 06/19/24) LOWER EXT. SWELLING Home Meds Reported Medications Fluticasone Propionate (Nasal) (Fluticasone Propionate Na) 50 Mcg/Act Spr, 1 SPRAY EACHNOSTRI DAILY for 60 Days, #16 06/21/24 Albuterol Sulfate (Albuterol Sulfate Hfa) 108 Mcg/Act Aer, 1 PUFF IN Q4HR for 33 Days, #18 06/21/24 Atenolol (Atenolol) 25 Mg Tab, 1 TAB PO DAILY for 90 Days, #90 TAKE 1 TABLET BY MOUTH DAILY. DISCONTINUE AMLODIPINE. 06/21/24 Losartan Potassium (Losartan Potassium) 100 Mg Tab, 1 TAB PO DAILY for 90 Days, #90 06/21/24 Apixaban Base (ELIQUIS) 5 Mg Tab, 1 TAB PO BID for 90 Days, #180 06/21/24 Tamsulosin Hcl (Tamsulosin Hcl) 0.4 Mg Cap, 2 CAP PO DAILY for 90 Days, #180 06/21/24 Hydrochlorothiazide (Hydrochlorothiazide) 25 Mg Tab, 1 TAB PO DAILY for 90 Days, #90 06/21/24 Current Medications Current Medications Medications (Trade) Dose Ordered Sig/Patricia Route PRN Reason Start Time Stop Time Status Last Admin Pantoprazole Sodium (Protonix) 40 mg BID IV 06/20/24 22:00 06/21/24 09:28 Multivitamins (Mvi Tab) 1 tab DAILY GT 06/21/24 10:00 06/21/24 09:26 Linezolid 300 ml @ 150 mls/hr Q12HR IV 06/21/24 10:00 06/21/24 09:34 Meropenem 50 ml @ 17 mls/hr Q12HR IV 06/21/24 10:00 06/21/24 14:26 DC 06/21/24 11:40 Heparin Sodium/ Dextrose 250 ml @ 20 mls/hr [id number] IV 06/21/24 09:45 06/21/24 12:01 Metoclopramide HCl (Reglan Injection) 10 mg Q8HR IV 06/21/24 14:00 06/22/24 06:01 Meropenem 50 ml @ 17 mls/hr Q12HR IV 06/21/24 22:00 Review of Systems Can not be obtained H&P Exam Vital Signs/I&O Vital Sign Date Time Temp Pulse Resp B/P (MAP) Pulse Ox O2 Delivery O2 Flow Rate FiO2 06/21/24 14:28 108 18 139/81 (100) 96 100 06/21/24 12:00 98.6 98.6 06/21/24 12:00 Mechanical Ventilator+ Intake and Output 06/20/24 06/21/24 19:00 07:00 Intake Total 799.908 ml 1250.5 ml Output Total 2350 ml 2950 ml Balance -1550.092 ml -1699.5 ml Intake Oral 30 ml 30 ml IV Total 769.908 ml 1168.5 ml Tube Feeding 52 ml Output Urine Total 2350 ml 2950 ml Physical Exam Obese patient intubated on ventilator Lungs clear to auscultation bilaterally Cardiac exam is tachycardic GI obese bowel sounds present Wick catheter Extremity 1+ edema Neuro patient is sedated Labs/Diagnostic Data Labs/Diagnostic Data Laboratory Tests Test 06/21/24 14:12 06/21/24 11:24 06/21/24 06:52 06/21/24 03:00 Range/Units Prothrombin Time 12.6 H 9.3-11.8 sec Prothrombin Time INR 1.21 H 0.9-1.15 Activated Partial Thromboplast Time 36.2 H 24.5-34.5 SEC D-Dimer, Quantitative 1.20 H 0.0-0.49 mg/L FEU Blood Gas Specimen Type Arterial Blood Gas Sample Site Right radial Blood Gas Patient Temperature 37.0 Arterial Blood Date Drawn [id number] Arterial Blood pH 7.522 H 7.350-7.450 Arterial Blood Partial Pressure CO2 42.9 35.0-48.0 mmHg Arterial Blood Partial Pressure O2 76.7 L 83.0-108.0 mmHg Arterial Blood HCO3 34.4 H 21.0-28.0 mmol/L Arterial Blood Oxygen Saturation 94.4 94.0-98.0 % Arterial Blood Base Excess 10.4 H -2.0-3.0 mmol/L Arterial Blood Oxyhemoglobin 93.6 L 94.0-98.0 % Arterial Blood Carboxyhemoglobin 0.7 0.5-1.5 % Arterial Blood Methemoglobin 0.1 0.0-1.5 % Thom Test Yes Blood Gas Total Hemoglobin 14.10 13.5-17.5 g/dL Blood Gas Set Respiration Rate 18.0 Blood Gas Modality Vent - ac FiO2 % 100.0 Blood Gas Tidal Volume 550.0 Blood Gas PEEP or CPAP 10.0 White Blood Count 14.7 #H 4.4-10.8 10^3/uL Red Blood Count 4.32 L 4.5-5.90 10^6/uL Hemoglobin 13.3 L 13.5-17.5 g/dL Hematocrit 39.3 L 41.0-53.0 % Mean Corpuscular Volume 90.9 80.0-100.0 fL Mean Corpuscular Hemoglobin 30.8 28.0-32.0 pg Mean Corpuscular Hemoglobin Concent 33.9 32.0-36.0 g/dL Red Cell Distribution Width 14.1 11.8-14.3 % Platelet Count 106 L 140-450 10^3/uL Mean Platelet Volume 8.4 6.9-10.8 fL Neutrophils (%) (Auto) 78.8 37.0-80.0 % Lymphocytes (%) (Auto) 9.7 L 10.0-50.0 % Monocytes (%) (Auto) 8.7 0.0-12.0 % Eosinophils (%) (Auto) 2.2 0.0-7.0 % Basophils (%) (Auto) 0.6 0.0-2.0 % Neutrophils # (Auto) 11.6 H 1.6-8.6 10 ^3/uL Lymphocytes # (Auto) 1.4 0.4-5.4 10 ^3/uL Monocytes # (Auto) 1.3 0-1.3 10 ^3/uL Eosinophils # (Auto) 0.3 0-0.8 10 ^3/uL Basophils # (Auto) 0.1 0-0.2 10 ^3/uL Nucleated Red Blood Cells 0.1 % Sodium Level 132 L 136-145 mmol/L Potassium Level 3.4 L 3.5-5.1 mmol/L Chloride Level 89 L 98-107 mmol/L Carbon Dioxide Level 31 20-31 mmol/L Anion Gap 12 5-15 Blood Urea Nitrogen 33 H 9-23 mg/dL Creatinine 2.23 H 0.700-1.30 mg/dL Glomerular Filtration Rate Calc 32 >90 mL/min BUN/Creatinine Ratio 14.8 10.0-20.0 Serum Glucose 95 74-106 mg/dL Hemoglobin A1c 5.4 <5.7 % A1C Calcium Level 9.2 8.7-10.4 mg/dL Magnesium Level 1.6 1.6-2.6 mg/dL Total Bilirubin 3.6 H 0.2-1.0 mg/dL Aspartate Amino Transferase (AST) 78 H 13-40 U/L Alanine Aminotransferase (ALT) 30 7-40 U/L Alkaline Phosphatase 70 46-116 U/L Total Protein 5.7 5.7-8.2 g/dL Albumin 2.9 L 3.2-4.8 g/dL Parathyroid Hormone (Intact) 74.9 18.4-80.1 pg/mL Test 06/21/24 02:20 06/20/24 05:50 06/20/24 03:00 06/19/24 15:01 Range/Units Blood Gas Specimen Type Arterial Arterial Arterial Blood Gas Sample Site Right radial Right radial Left radial Blood Gas Patient Temperature 37.0 37.0 37.0 Arterial Blood Date Drawn [id number] Arterial Blood pH 7.511 H 7.571 *H 7.590 *H 7.350-7.450 Arterial Blood Partial Pressure CO2 39.2 35.8 36.5 35.0-48.0 mmHg Arterial Blood Partial Pressure O2 51.3 *L 71.7 L 60.7 L 83.0-108.0 mmHg Arterial Blood HCO3 30.6 H 32.1 H 34.2 H 21.0-28.0 mmol/L Arterial Blood Oxygen Saturation 84.7 *L 94.2 92.0 L 94.0-98.0 % Arterial Blood Base Excess 7.2 H 9.7 H 11.8 H -2.0-3.0 mmol/L Arterial Blood Oxyhemoglobin 83.8 L 93.4 L 90.9 L 94.0-98.0 % Arterial Blood Carboxyhemoglobin 0.9 0.6 0.9 0.5-1.5 % Arterial Blood Methemoglobin 0.2 0.3 0.3 0.0-1.5 % Thom Test Modified Modified Modified Blood Gas Total Hemoglobin 14.40 13.80 13.80 13.5-17.5 g/dL Blood Gas Set Respiration Rate 18.0 18.0 18.0 Blood Gas Modality Vent - ac Vent - ac Vent - ac FiO2 % 100.0 90.0 100.0 Blood Gas Tidal Volume 550.0 550.0 550.0 Blood Gas PEEP or CPAP 10.0 10.0 10.0 Blood Gas Critical Value Read Back Yes Yes Yes Blood Gas Notified Whom barb Lua md, r md Blood Gas Notified Time [id number] Blood Gas Notified By Rt garland Billy residential [employer] romain hooks White Blood Count 11.1 H 4.4-10.8 10^3/uL Red Blood Count 4.06 L 4.5-5.90 10^6/uL Hemoglobin 12.6 L 13.5-17.5 g/dL Hematocrit 36.1 L 41.0-53.0 % Mean Corpuscular Volume 89.1 80.0-100.0 fL Mean Corpuscular Hemoglobin 31.2 28.0-32.0 pg Mean Corpuscular Hemoglobin Concent 35.0 32.0-36.0 g/dL Red Cell Distribution Width 14.2 11.8-14.3 % Platelet Count 109 L 140-450 10^3/uL Mean Platelet Volume 8.2 6.9-10.8 fL Neutrophils (%) (Auto) 77.4 37.0-80.0 % Lymphocytes (%) (Auto) 13.6 10.0-50.0 % Monocytes (%) (Auto) 7.3 0.0-12.0 % Eosinophils (%) (Auto) 1.3 0.0-7.0 % Basophils (%) (Auto) 0.4 0.0-2.0 % Neutrophils # (Auto) 8.6 1.6-8.6 10 ^3/uL Lymphocytes # (Auto) 1.5 0.4-5.4 10 ^3/uL Monocytes # (Auto) 0.8 0-1.3 10 ^3/uL Eosinophils # (Auto) 0.1 0-0.8 10 ^3/uL Basophils # (Auto) 0 0-0.2 10 ^3/uL Nucleated Red Blood Cells 0.0 % Sodium Level 131 L 136-145 mmol/L Potassium Level 3.9 3.5-5.1 mmol/L Chloride Level 89 L 98-107 mmol/L Carbon Dioxide Level 33 H 20-31 mmol/L Anion Gap 9 5-15 Blood Urea Nitrogen 38 H 9-23 mg/dL Creatinine 2.04 H 0.700-1.30 mg/dL Glomerular Filtration Rate Calc 35 >90 mL/min BUN/Creatinine Ratio 18.6 10.0-20.0 Serum Glucose 90 74-106 mg/dL Calcium Level 8.8 8.7-10.4 mg/dL Test 06/19/24 07:14 06/19/24 03:43 06/18/24 22:11 06/18/24 22:07 Range/Units Blood Gas Specimen Type Arterial Blood Gas Sample Site Right radial Blood Gas Patient Temperature 37.0 Arterial Blood Date Drawn [id number] Arterial Blood pH 7.544 H 7.350-7.450 Arterial Blood Partial Pressure CO2 40.3 35.0-48.0 mmHg Arterial Blood Partial Pressure O2 50.2 *L 83.0-108.0 mmHg Arterial Blood HCO3 34.0 H 21.0-28.0 mmol/L Arterial Blood Oxygen Saturation 87.0 L 94.0-98.0 % Arterial Blood Base Excess 10.6 H -2.0-3.0 mmol/L Arterial Blood Oxyhemoglobin 86.0 L 94.0-98.0 % Arterial Blood Carboxyhemoglobin 0.8 0.5-1.5 % Arterial Blood Methemoglobin 0.3 0.0-1.5 % Thom Test Modified Blood Gas Total Hemoglobin 13.60 13.5-17.5 g/dL Blood Gas Set Respiration Rate 18.0 Blood Gas Modality Vent - ac FiO2 % 100.0 Blood Gas Tidal Volume 550.0 Blood Gas PEEP or CPAP 7.0 Blood Gas Critical Value Read Back Yes Blood Gas Notified Whom David valdivia Blood Gas Notified Time [id number] Blood Gas Notified By L. makayla residential subcontractor White Blood Count 12.0 #H 4.4-10.8 10^3/uL Red Blood Count 4.25 L 4.5-5.90 10^6/uL Hemoglobin 12.9 L 13.5-17.5 g/dL Hematocrit 38.8 L 41.0-53.0 % Mean Corpuscular Volume 91.4 80.0-100.0 fL Mean Corpuscular Hemoglobin 30.3 28.0-32.0 pg Mean Corpuscular Hemoglobin Concent 33.1 32.0-36.0 g/dL Red Cell Distribution Width 14.0 11.8-14.3 % Platelet Count 113 L 140-450 10^3/uL Mean Platelet Volume 8.1 6.9-10.8 fL Neutrophils (%) (Auto) 89.8 H 37.0-80.0 % Lymphocytes (%) (Auto) 2.5 L 10.0-50.0 % Monocytes (%) (Auto) 7.6 0.0-12.0 % Eosinophils (%) (Auto) 0.0 0.0-7.0 % Basophils (%) (Auto) 0.1 0.0-2.0 % Neutrophils # (Auto) 10.8 H 1.6-8.6 10 ^3/uL Lymphocytes # (Auto) 0.3 L 0.4-5.4 10 ^3/uL Monocytes # (Auto) 0.9 0-1.3 10 ^3/uL Eosinophils # (Auto) 0 0-0.8 10 ^3/uL Basophils # (Auto) 0 0-0.2 10 ^3/uL Nucleated Red Blood Cells 0.1 % Sodium Level 131 L 136-145 mmol/L Potassium Level 4.0 3.5-5.1 mmol/L Chloride Level 88 L 98-107 mmol/L Carbon Dioxide Level 34 H 20-31 mmol/L Anion Gap 9 5-15 Blood Urea Nitrogen 31 H 9-23 mg/dL Creatinine 1.13 0.700-1.30 mg/dL Glomerular Filtration Rate Calc 72 >90 mL/min BUN/Creatinine Ratio 27.4 H 10.0-20.0 Serum Glucose 120 H 74-106 mg/dL Calcium Level 9.2 8.7-10.4 mg/dL Total Bilirubin 2.0 H 0.2-1.0 mg/dL Aspartate Amino Transferase (AST) 63 H 13-40 U/L Alanine Aminotransferase (ALT) 28 7-40 U/L Alkaline Phosphatase 60 46-116 U/L Total Protein 5.4 L 5.7-8.2 g/dL Albumin 3.0 L 3.2-4.8 g/dL Urine Color Yellow Yellow Urine Clarity Clear Clear Urine pH 6.5 5.0-9.0 Urine Specific [place] 1.018 1.001-1.035 Urine Protein 3+ H Negative Urine Ketones Negative Negative Urine Blood Negative Negative /uL Urine Nitrite Negative Negative Urine Bilirubin Negative Negative Urine Urobilinogen 4 H Negative mg/dL Urine Leukocyte Esterase Negative Negative /uL Urine RBC 6 0 - 3 /hpf Urine Microscopic WBC 9 H 0-3 /HPF Urine Squamous Epithelial Cells Few <5 /hpf Urine Bacteria Few H None Seen /hpf Urine Hyaline Casts Few 0 - 2 /lpf Urine Mucus Few None Seen Urine Glucose Normal Normal mg/dL Urine Opiates Screen Neg NEGATIVE Urine Fentanyl Screen Neg NEGATIVE Urine Barbiturates Screen Neg NEGATIVE Urine Phencyclidine Screen Neg NEGATIVE Urine Amphetamines Screen Neg NEGATIVE Urine Benzodiazepines Screen Neg NEGATIVE Urine Cocaine Screen Neg NEGATIVE Urine Cannabinoids Screen Neg NEGATIVE Troponin I High Sensitivity 585 *H </=54 ng/L Test 06/18/24 20:55 06/18/24 20:01 06/18/24 19:13 Range/Units Blood Gas Specimen Type Arterial Blood Gas Sample Site Right radial Blood Gas Patient Temperature 37.0 Arterial Blood Date Drawn [id number] Arterial Blood pH 7.371 7.350-7.450 Arterial Blood Partial Pressure CO2 62.2 *H 35.0-48.0 mmHg Arterial Blood Partial Pressure O2 59.8 L 83.0-108.0 mmHg Arterial Blood HCO3 35.2 H 21.0-28.0 mmol/L Arterial Blood Oxygen Saturation 89.4 L 94.0-98.0 % Arterial Blood Base Excess 7.8 H -2.0-3.0 mmol/L Arterial Blood Oxyhemoglobin 87.5 L 94.0-98.0 % Arterial Blood Carboxyhemoglobin 1.7 H 0.5-1.5 % Arterial Blood Methemoglobin 0.4 0.0-1.5 % Thom Test Modified Blood Gas Total Hemoglobin 13.80 13.5-17.5 g/dL Blood Gas Set Respiration Rate 16.0 Blood Gas Modality Vent - ac FiO2 % 100.0 Blood Gas Tidal Volume 550.0 Blood Gas PEEP or CPAP 5.0 Blood Gas Critical Value Read Back Yes Blood Gas Notified Whom Dnp shea Blood Gas Notified Time [id number] Blood Gas Notified By Belt Molder truman riley Troponin I High Sensitivity 154 *H 60 *H </=54 ng/L White Blood Count 6.3 4.4-10.8 10^3/uL Red Blood Count 4.39 L 4.5-5.90 10^6/uL Hemoglobin 13.3 L 13.5-17.5 g/dL Hematocrit 41.2 41.0-53.0 % Mean Corpuscular Volume 93.9 80.0-100.0 fL Mean Corpuscular Hemoglobin 30.3 28.0-32.0 pg Mean Corpuscular Hemoglobin Concent 32.3 32.0-36.0 g/dL Red Cell Distribution Width 14.5 H 11.8-14.3 % Platelet Count 103 L 140-450 10^3/uL Mean Platelet Volume 8.3 6.9-10.8 fL Neutrophils (%) (Auto) 73.3 37.0-80.0 % Lymphocytes (%) (Auto) 17.1 10.0-50.0 % Monocytes (%) (Auto) 8.6 0.0-12.0 % Eosinophils (%) (Auto) 0.6 0.0-7.0 % Basophils (%) (Auto) 0.4 0.0-2.0 % Neutrophils # (Auto) 4.6 1.6-8.6 10 ^3/uL Lymphocytes # (Auto) 1.1 0.4-5.4 10 ^3/uL Monocytes # (Auto) 0.5 0-1.3 10 ^3/uL Eosinophils # (Auto) 0 0-0.8 10 ^3/uL Basophils # (Auto) 0 0-0.2 10 ^3/uL Nucleated Red Blood Cells 0.2 % Sodium Level 131 L 136-145 mmol/L Potassium Level 3.8 3.5-5.1 mmol/L Chloride Level 88 L 98-107 mmol/L Carbon Dioxide Level 29 20-31 mmol/L Anion Gap 14 5-15 Blood Urea Nitrogen 25 H 9-23 mg/dL Creatinine 1.00 0.700-1.30 mg/dL Glomerular Filtration Rate Calc 83 >90 mL/min BUN/Creatinine Ratio 25.0 H 10.0-20.0 Serum Glucose 123 H 74-106 mg/dL Calcium Level 9.5 8.7-10.4 mg/dL Total Bilirubin 1.3 H 0.2-1.0 mg/dL Aspartate Amino Transferase (AST) 33 13-40 U/L Alanine Aminotransferase (ALT) 25 7-40 U/L Alkaline Phosphatase 69 46-116 U/L B-Type Natriuretic Peptide 745.94 0-100 pg/mL Total Protein 6.0 5.7-8.2 g/dL Albumin 3.3 3.2-4.8 g/dL Plasma/Serum Blood Alcohol < 3.0 <10 mg/dL Microbiology Date/Time Source Procedure Growth Status 06/19/24 00:02 Nose MRSA Screen - Final Complete Assessment Acute kidney injury secondary to ischemic ATN Status post cardiopulmonary arrest Acute respiratory failure, patient intubated on ventilator NSTEMI Congestive heart failure exacerbation AFib with RVR Hyponatremia due to excess H2O Hypokalemia Recommendations Closely monitor fluid and electrolytes Avoid nephrotoxic medications Wick catheter Strict I&Os Check urine electrolytes Check kidney ultrasound I agree with diuresis KCL replacement Cardiology consult We will continue to follow Patient seen and examined by myself. I discussed my plan of care with the steven gonsalez nurse at the bedside I would like to thank Evangelista for the consult, will follow Plan discussed with: Other (Nurse) SHAYNE KENNEDY MD Jun 21, 2024 10:39
--- NOTE | 2024-06-21 10:57 | DVH ---
US BiLat Lower DVT HISTORY: rule out DVT COMPARISON: None TECHNIQUE: Duplex Doppler evaluation of the deep venous system of the lower extremity from the common femoral veins, superficial femoral vein, great saphenous vein, deep femoral vein, popliteal vein, an d calf veins, including color Doppler and spectral/pulsed waveform analysis, was performed. FINDINGS: Right: - Common femoral vein: Compressible - Deep femoral vein: Compressible - Femoral vein: Compressible - Popliteal vein: Compressible - Posterior tibial vein: Waveforms present - Other: 3.4 x 4.5 x 1.9 cm right popliteal fossa cyst. Left: - Common femoral vein: Compressible - Deep femoral vein: Compressible - Femoral vein: Compressible - Popliteal vein: Compressible - Posterior tibial vein: Waveforms present - Other: Nothing IMPRESSION: No right or left lower extremity deep venous thrombosis.
[2024-06-21] MEDS: MEROPENEM 500MG IVPB 50 ML IV SCH (11:40)
--- NOTE | 2024-06-21 11:47 | CONS ---
Pharmacy Clinical Information: HEPARIN PER PHARMACY Spoke to Josette regarding heparin dose Current dose: 2000 untis/hr Current aPTT: pending Bolus: Yes, 5000 units/hr Josette read back initial dose at 20 ml/hr (2000 units/hr) IVELISSE CHAMBERS PHARMACIST Jun 21, 2024 11:47
[2024-06-21] MEDS: HEPARIN SODIUM (PORCINE) 5000 UNITS/ML 1ML VIAL IV ONE (11:59)
[2024-06-21 12:00] LABS: INR 1.21 (0.9-1.15); Partial Thromboplastin Time 36.2 SEC (24.5-34.5); Prothrombin Time 12.6 sec (9.3-11.8)
[2024-06-21] MEDS: HEPARIN DRIP/D5W 100UNITS/ML 250 ML IV SCH ×2 (12:01→22:00)
--- NOTE | 2024-06-21 12:05 | DVH ---
INDICATION: atif TECHNIQUE: Multiple real-time sonographic images of the kidneys and bladder were obtained. COMPARISON: None FINDINGS: The right kidney measures 11.2 cm in length, which is normal in size. There is normal echog enicity of the right kidney. No hydronephrosis. The left kidney measures 10.9 cm in length, which is normal in size. Poor visualization of the left kidney due to obscuration from bowel gas which limits evaluation. The urinary bladder is decompressed with Wick catheter. IMPRESSION: 1. Normal sonographic appearance of the kidneys within limitations of the exam. No hydronephrosis.
[2024-06-21] MEDS: METOCLOPRAMIDE HCL 5MG/ml INJ 2ml VIAL IV SCH (14:00)
--- NOTE | 2024-06-21 14:47 | DVHPN2 ---
Progress Note Date Seen: Jun 21, 2024 Medical Necessity Reason Pt with a Central, PICC or Fol: No Objective vital signs Vital Sign Date Time Temp Pulse Resp B/P (MAP) Pulse Ox O2 Delivery O2 Flow Rate FiO2 06/21/24 14:28 108 18 139/81 (100) 96 100 06/21/24 12:00 98.6 98.6 06/21/24 12:00 Mechanical Ventilator+ Total Intake and Output 06/20/24 06/20/24 06/21/24 15:00 23:00 07:00 Intake Total 469.658 ml 578.25 ml 1002.5 ml Output Total 2350 ml 2950 ml Balance 469.658 ml -1771.75 ml -1947.5 ml medications Current Medications Medications Dose Ordered Sig/Patricia Route Start Time Stop Time Status Last Admin Dose Admin Norepinephrine Bitartrate 250 ml @ 3.75 mls/hr Q24H IV 06/18/24 19:15 06/21/24 11:52 37.5 MLS/HR Fentanyl Citrate 250 ml @ 2.5 mls/hr Q24H IV 06/18/24 19:45 06/21/24 14:16 10 MLS/HR Ondansetron HCl 4 mg Q4HP PRN IV 06/18/24 19:45 06/21/24 09:27 4 MG Acetaminophen 650 mg Q6HP PRN LA 06/18/24 19:45 Midazolam HCl 50 ml @ 10 mls/hr Q5H IV 06/18/24 20:30 06/21/24 03:43 5 MLS/HR Nitroglycerin 0.4 mg Q5MINP PRN SL 06/18/24 20:45 Morphine Sulfate 2 mg Q30M PRN IV 06/18/24 20:45 Propofol 100 ml @ 5.443 mls/ hr [id number] IV 06/18/24 22:30 06/20/24 08:07 10.886 MLS/HR Furosemide 60 mg DAILY IV 06/20/24 10:00 06/21/24 09:27 60 MG Amiodarone HCl 200 mg BID PO 06/20/24 10:00 06/21/24 09:26 200 MG Pantoprazole Sodium 40 mg BID IV 06/20/24 22:00 06/21/24 09:28 40 MG Enteral Nutritional Formula 1,000 ml 30ML/HR GT 06/20/24 11:15 Thiamine HCl 100 mg DAILY IV 06/20/24 11:15 06/21/24 09:29 100 MG Multivitamins 1 tab DAILY GT 06/21/24 10:00 06/21/24 09:26 1 TAB Albuterol 2.5 mg Q6HR NEB 06/20/24 12:00 06/21/24 11:55 2.5 MG Ipratropium [place] 0.5 mg Q6HR NEB 06/20/24 12:00 06/21/24 11:55 0.5 MG Linezolid 300 ml @ 150 mls/hr Q12HR IV 06/21/24 10:00 06/21/24 09:34 150 MLS/HR Heparin Sodium/ Dextrose 250 ml @ 20 mls/hr [id number] IV 06/21/24 09:45 06/21/24 12:01 20 MLS/HR Metoclopramide HCl 10 mg Q8HR IV 06/21/24 14:00 06/22/24 06:01 Meropenem 50 ml @ 17 mls/hr Q12HR IV 06/21/24 22:00 Examination: GENERAL:Abnormal, HEENT:Abnormal, LUNGS:Abnormal, CVS:Abnormal, ABDOMEN:Abnormal laboratory and microbiology Laboratory Tests 06/21/24 03:00 Test 06/21/24 03:00 Range/Units Serum Glucose 95 74-106 mg/dL Microbiology Date/Time Source Procedure Growth Status 06/19/24 00:02 Nose MRSA Screen - Final Complete 06/18/24 19:42 Sputum Gram Stain - Final Resulted 06/18/24 19:42 Sputum Respiratory Culture - Preliminary Resulted Problem List/Assessment/Plan Problem List/Assessment/Plan obesity cardiac arrest hypotension chronic afib resp failure neuro consult--[facility] po amio head ct pending mild nstemi --prob 2/2 to arrest iv lasix daily RV failure--?underlying irwin, obesity, diuretics prn, etoh cardiomyopathy renal US done head ct still pending venous US - for vte will sign off, please consult collision technician cards if needed going [place] after 06/21 40 mins critical care time spent with RN Plan discussed with: Patient Dietary Evaluation Review Comments: 1) If patient remains NPO for more than 7 days, consider EN/TPN to meet at least 75% of estimated needs 2) If GI route is preferred, consider Jevity 1.2 @ goal rate of 60 mL/hr. Goal rate will provide 1728 kcals, 108g Pro, and 1162 mL free H2O per 24 hrs. TF regimen will meet ~ 80% daily esimated energy needs and exceed daily estinated protein needs 2) Advance patient diet when medically feasible to cardiac diet, pending PROBATION MANAGER approval 3) Collect HbA1c 4) Continue current plan of care Expected Outcomes/Goals: 1) patient to receive nutrition support within 7 days of NPO status 2) diet to advance 3) appetite and labs to improve 4) f/u in 3 days Date of Service: Jun 21, 2024 Billing Provider: WILBER MURRAY MD Common Visit Codes: NOT BILLABLE WILBER MURRAY MD Jun 21, 2024 14:47
[2024-06-21 15:02] LABS: Magnesium 1.4 mg/dL (1.6-2.6); Phosphorus 5.4 mg/dL (2.4-5.1)
[2024-06-21] MEDS: VASOPRESSIN 20 UNITS in SODIUM CHL 0.9% 99 ML IV SCH (17:00)
[2024-06-21 20:17] LABS: INR 1.29 (0.9-1.15); Prothrombin Time 13.3 sec (9.3-11.8)
[2024-06-21 20:19] LABS: Partial Thromboplastin Time > 139.0 SEC (24.5-34.5)
[2024-06-21 21:20] LABS: Alanine Aminotransferase 24 U/L (7-40); Alkaline Phosphatase 70 U/L (46-116); Anion Gap 8 (5-15); BUN/Creatinine Ratio 13.7 (10.0-20.0); Glucose 104 mg/dL (74-106); Total Protein 5.7 g/dL (5.7-8.2)
[2024-06-21 21:23] LABS: Albumin 2.9 g/dL (3.2-4.8); Aspartate Aminotransferase 78 U/L (13-40); Bilirubin, Total 3.4 mg/dL (0.2-1.0); Blood Urea Nitrogen 31 mg/dL (9-23); Calcium 8.7 mg/dL (8.7-10.4); Carbon Dioxide 34 mmol/L (20-31); Chloride 91 mmol/L (98-107); Magnesium 1.5 mg/dL (1.6-2.6); Phosphorus 5.7 mg/dL (2.4-5.1); Potassium 3.3 mmol/L (3.5-5.1); Sodium 133 mmol/L (136-145)
--- NOTE | 2024-06-21 22:32 | DVHEEG2 ---
Neurology EEG Procedural Note Procedural Note EXAM DATE: 06/21/2024 REFERRING DOCTOR: Dr. Aparicio TECHNIQUE: Eighteen channels of EEG, 2 channels of EOG, and 1 channel of EKG were recorded using the International 10/20 system. CLINICAL DATA: The patient was referred for an EEG evaluation for the evidence of seizure disorder. MEDICATIONS: See chart BACKGROUND ACTIVITY: The record showed diffuse low amplitude mixed delta and theta activity, that was questionably reactive to external stimuli ACTIVATION: Hyperventilation: Not done Photic Stimulation: Not done Sleep: Nonresponsiveness IMPRESSION: This is a remarkably abnormal EEG, this EEG is seen in severe cerebral dysfunction due to metabolic/hypoxic encephalopathy or medication effects, please correlate clinically. The EKG channel showed an irregular heart rate of 108 per minute[place] [address] LOBO APARICIO MD Jun 21, 2024 22:32
[2024-06-21] MEDS: POTASSIUM CHL 20MEQ/50ML 50 ML IV ONE (22:34)
[2024-06-21] MEDS: HYDROCORTISONE SOD SUCC 100 MG/2ML INJ VIAL IV SCH (22:35)
[2024-06-21] MEDS: MEROPENEM 1GM IVPB 50 ML IV SCH (22:36)
[2024-06-21] MEDS: POTASSIUM CHL 20MEQ/100ML 100 ML IV ONE (23:37)
[2024-06-22] VITALS (108 sets, daily range): BP systolic 93–149; BP diastolic 30–101; PULSE 78–135; RESP 14–19; TEMP 97.9–99.9; O2SAT 88–100
[2024-06-22] MEDS: MAGNESIUM SULFATE 1GM/100ML 100 ML IV SCH ×2 (01:58→11:35)
[2024-06-22 04:13] LABS: Basophils # (auto) 0 10 ^3/uL (0-0.2); Basophils % (auto) 0.3 % (0.0-2.0); Eosinophils # (auto) 0 10 ^3/uL (0-0.8); Hematocrit 38.4 % (41.0-53.0); Hemoglobin 12.8 g/dL (13.5-17.5); Lymphocytes # (auto) 0.3 10 ^3/uL (0.4-5.4); Lymphocytes % (auto) 2.5 % (10.0-50.0); Mean Corpuscular Hemoglobin 30.3 pg (28.0-32.0); Mean Corpuscular Hgb Conc. 33.3 g/dL (32.0-36.0); Mean Corpuscular Volume 90.8 fL (80.0-100.0); Monocytes # (auto) 0.5 10 ^3/uL (0-1.3); Monocytes % (auto) 4.9 % (0.0-12.0); Neutrophils # (auto) 9.2 10 ^3/uL (1.6-8.6); Neutrophils % (auto) 92.3 % (37.0-80.0); Platelet Count (auto) 101 10^3/uL (140-450); Red Blood Cells 4.23 10^6/uL (4.5-5.90); Red Cell Distribution Width 14.3 % (11.8-14.3); White Blood Cell 9.9 10^3/uL (4.4-10.8)
[2024-06-22 04:37] LABS: Anion Gap 8 (5-15)
[2024-06-22 04:42] LABS: BUN/Creatinine Ratio 15.9 (10.0-20.0); Calcium 8.4 mg/dL (8.7-10.4); Carbon Dioxide 34 mmol/L (20-31); Chloride 92 mmol/L (98-107); Potassium 3.2 mmol/L (3.5-5.1); Sodium 134 mmol/L (136-145)
[2024-06-22 04:43] LABS: Blood Urea Nitrogen 34 mg/dL (9-23); Glucose 150 mg/dL (74-106); INR 1.25 (0.9-1.15)
[2024-06-22 04:44] LABS: Partial Thromboplastin Time > 139.0 SEC (24.5-34.5)
[2024-06-22] MEDS: POTASSIUM CHL 20MEQ/50ML 50 ML IV ONE (05:45)
[2024-06-22] MEDS: HEPARIN DRIP/D5W 100UNITS/ML 250 ML IV SCH (05:45)
[2024-06-22] MEDS: POTASSIUM CHL 20MEQ/100ML 100 ML IV ONE (05:49)
[2024-06-22 06:16] LABS: Base Excess 7.7 mmol/L (-2.0-3.0)
--- NOTE | 2024-06-22 08:50 | DVH ---
CHEST RADIOGRAPH Indication: intubated/ng placement Technique: Single frontal view of the chest was obtained COMPARISON: XY CHEST PORTABLE on DOS: 06/21/24, XY CHEST PORTABLE on DOS: 06/21/24, XY CHEST PORTABLE o n DOS: 06/20/24, XY CHEST PORTABLE on DOS: 06/19/24, XY CHEST PORTABLE on DOS: 06/18/24 FINDINGS: Lines and Tubes: Endotracheal tube and enteric catheter in satisfactory position. Lungs: Multifocal airspace disease. Pleura: No effusion. No pneumothorax. Cardiomediastinal contours: Unremarkable Bones: Unremarkable IMPRESSION: Lines and tubes in satisfactory position. No significant interval change.
[2024-06-22] MEDS ORDERED: POTASSIUM CHL 20MEQ/100ML 100 ML IV SCH (09:00)
[2024-06-22] MEDS ORDERED: MAGNESIUM SULFATE 1GM/100ML 100 ML IV ONE (09:00)
--- NOTE | 2024-06-22 09:53 | DVHPN2 ---
Subjective Chemically sedated Reviewed: Care Plan, H&P, Labs, Previous Orders Changes from previous H/P or p: No Changes General: Per HPI Eyes: No Pain, No Vision change, No Conjunctivae inflammation, No Eyelid inflammation, No Other, No Redness ENT: No Ear pain, No Ear discharge, No Nose pain, No Nose discharge, No Nose congestion, No Mouth pain, No Mouth swelling, No Throat pain, No Throat swelling, No Other Cardiovascular: No Chest Pain, No Palpitations, No Orthopnea, No Paroxysmal Noc. Dyspnea, No Edema, No Lt Headedness, No Other Respiratory: No Cough, No Dry, No Shortness of breath, No SOB with excertion, No Wheezing, No Hemoptysis, No Pleuritic Pain, No Sputum, No Other Gastrointestinal: No Nausea, No Vomiting, No Abdominal Pain, No Diarrhea, No Constipation, No Melena, No Hematochezia, No Other Genitourinary: No Dysuria, No Frequency, No Incontinence, No Hematuria, No Retention, No Other Musculoskeletal: No other, No neck pain, No shoulder pain, No arm pain, No back pain, No hand pain, No leg pain, No foot pain Skin: No Rash, No Lesions, No Jaundice, No Bruising, No Other Objective Vitals Vital Signs Date Time Temp Pulse Resp B/P (MAP) Pulse Ox O2 Delivery O2 Flow Rate FiO2 06/22/24 08:58 111/67 06/22/24 07:28 98 18 98 90 06/22/24 06:00 Mechanical Ventilator+ 06/22/24 04:00 99.8 99.8 Intake/Output Intake and Output 06/22/24 07:00 Intake Total 2345.60 ml Output Total 6750 ml Balance -4404.40 ml Intake Oral 50 ml IV Total 2295.60 ml Output Urine Total 6750 ml General Appearance: moderate distress, Other (sedated and intubated) HEENT: Atraumatic, Other (Pupils 1 mm with no response) Lungs: Clear to auscultation, Normal air movement (Decreased breath sounds at bases), Other (Mechanical ventilation) Cardiovascular: Normal S1, Normal S2, Other (Atrial fibrillation) Abdomen: Normal bowel sounds, Soft, No tenderness, No hepatospenomegaly Genitourinary: No Apparent Abnormalities (Wick catheter) Musculoskeletal: Other (Unable to assess) Extremities: No clubbing, No cyanosis Neuro: Other (Chemically sedated) Skin: Dry, Intact, Warm Psych/Mental Status: Other (Chemically sedated) Medications Current Medications Medications Dose Ordered Sig/Patricia Route Start Time Stop Time Status Last Admin Dose Admin Norepinephrine Bitartrate 250 ml @ 3.75 mls/hr Q24H IV 06/18/24 19:15 06/22/24 02:39 30 MLS/HR Fentanyl Citrate 250 ml @ 2.5 mls/hr Q24H IV 06/18/24 19:45 06/21/24 14:16 10 MLS/HR Ondansetron HCl 4 mg Q4HP PRN IV 06/18/24 19:45 06/21/24 09:27 4 MG Acetaminophen 650 mg Q6HP PRN MO 06/18/24 19:45 Midazolam HCl 50 ml @ 10 mls/hr Q5H IV 06/18/24 20:30 06/22/24 08:58 1 MLS/HR Nitroglycerin 0.4 mg Q5MINP PRN SL 06/18/24 20:45 Morphine Sulfate 2 mg Q30M PRN IV 06/18/24 20:45 Propofol 100 ml @ 5.443 mls/ hr [id number] IV 06/18/24 22:30 06/20/24 08:07 10.886 MLS/HR Furosemide 60 mg DAILY IV 06/20/24 10:00 06/21/24 09:27 60 MG Amiodarone HCl 200 mg BID PO 06/20/24 10:00 06/21/24 22:35 200 MG Pantoprazole Sodium 40 mg BID IV 06/20/24 22:00 06/21/24 22:35 40 MG Enteral Nutritional Formula 1,000 ml 30ML/HR GT 06/20/24 11:15 Thiamine HCl 100 mg DAILY IV 06/20/24 11:15 06/21/24 09:29 100 MG Multivitamins 1 tab DAILY GT 06/21/24 10:00 06/21/24 09:26 1 TAB Albuterol 2.5 mg Q6HR NEB 06/20/24 12:00 06/22/24 06:41 2.5 MG Ipratropium [place] 0.5 mg Q6HR NEB 06/20/24 12:00 06/22/24 06:41 0.5 MG Linezolid 300 ml @ 150 mls/hr Q12HR IV 06/21/24 10:00 06/21/24 22:36 150 MLS/HR Meropenem 50 ml @ 17 mls/hr Q12HR IV 06/21/24 22:00 06/21/24 22:36 17 MLS/HR Hydrocortisone Sodium Succinate 100 mg Q12HR IV 06/21/24 22:00 06/21/24 22:35 100 MG Vasopressin 20 units/Sodium Chloride 100 ml @ 9 mls/hr Q11H7M IV 06/21/24 17:00 Heparin Sodium/ Dextrose 250 ml @ 14 mls/hr [id number] IV 06/22/24 05:45 Potassium Chloride 100 ml @ 50 mls/hr Q2H IV 06/22/24 09:00 06/22/24 12:59 Laboratory Results Laboratory Tests 06/22/24 04:00 Chemistry Test 06/21/24 14:12 06/21/24 19:08 06/22/24 04:00 Magnesium Level 1.4 mg/dL (1.6-2.6) L 1.5 mg/dL (1.6-2.6) L Phosphorus Level 5.4 mg/dL (2.4-5.1) H 5.7 mg/dL (2.4-5.1) H Albumin 2.9 g/dL (3.2-4.8) L Calcium Level 8.7 mg/dL (8.7-10.4) 8.4 mg/dL (8.7-10.4) L Total Protein 5.7 g/dL (5.7-8.2) Coagulation Test 06/21/24 11:24 06/21/24 19:08 06/22/24 04:00 Prothrombin Time 12.6 sec (9.3-11.8) H 13.3 sec (9.3-11.8) H 13.0 sec (9.3-11.8) H Prothrombin Time INR 1.21 (0.9-1.15) H 1.29 (0.9-1.15) H 1.25 (0.9-1.15) H Activated Partial Thromboplast Time 36.2 SEC (24.5-34.5) H > 139.0 SEC (24.5-34.5) *H > 139.0 SEC (24.5-34.5) *H D-Dimer, Quantitative 1.20 mg/L FEU (0.0-0.49) H LFT Test 06/21/24 19:08 Alanine Aminotransferase (ALT) 24 U/L (7-40) Alkaline Phosphatase 70 U/L (46-116) Aspartate Amino Transferase (AST) 78 U/L (13-40) H Total Bilirubin 3.4 mg/dL (0.2-1.0) H Urinalysis Test 06/18/24 22:11 Urine Color Yellow (Yellow) Urine Clarity Clear (Clear) Urine pH 6.5 (5.0-9.0) Urine Specific [place] 1.018 (1.001-1.035) Urine Protein 3+ (Negative) H Urine Ketones Negative (Negative) Urine Blood Negative /uL (Negative) Urine Nitrite Negative (Negative) Urine Bilirubin Negative (Negative) Urine Urobilinogen 4 mg/dL (Negative) H Urine Leukocyte Esterase Negative /uL (Negative) Urine RBC 6 /hpf (0 - 3) Urine Microscopic WBC 9 /HPF (0-3) H Urine Squamous Epithelial Cells Few /hpf (<5) Urine Bacteria Few /hpf (None Seen) H Urine Hyaline Casts Few /lpf (0 - 2) Urine Mucus Few (None Seen) Urine Glucose Normal mg/dL (Normal) Blood Gas Results Test 06/22/24 05:40 Arterial Blood pH 7.499 (7.350-7.450) FiO2 % 100.0 Microbiology Microbiology Date/Time Source Procedure Growth Status 06/19/24 00:02 Nose MRSA Screen - Final Complete 06/18/24 19:42 Sputum Gram Stain - Final Resulted 06/18/24 19:42 Sputum Respiratory Culture - Preliminary Resulted Labs and/or images reviewed: Labs reviewed by me, Image(s) reviewed by me Assessment/Plan Assessment/Plan Impression: -cardiopulmonary arrest at home -morbid obesity -alcoholism -acute hypoxic respiratory failure with mechanical ventilation -questionable acute seizure activity given cessation of alcohol four days prior -atrial fibrillation -metabolic encephalopathy -probable aspiration pneumonia Plan: -events: Patient had another episode of emesis this a.m.. Gastric tube replaced with visualization of the tip on chest x-ray noted to be in the stomach. FiO2 now at 90%. Patient also on decreased vasopressor requirements with norepinephrine at 14 micrograms/minute. -continue current ventilator settings, wean FiO2 to keep saturation greater than 92% -continue bronchodilators and Mucomyst -continue hydrocortisone 100 mg b.i.d. -continue MVI and thiamine -patient with persistent emesis x2 days. Start parenteral nutrition -continue current antibiotic therapy. Patient remains afebrile, with leukocytosis resolving -nephrology consultation for worsening acute kidney injury -continue anticoagulation with heparin, therapeutic for PE -pulmonology consultation -neurology consultation -repeat labs, chest x-ray, ABG in a.m. -repeat CT scan of the head currently pending -discussed plan of care with the patient's son who was bedside. All questions answered. Critical care time spent with patient discussing and formulating plan of care: 40 minutes. This does not include time spent performing procedures. This medical document was created using an electronic medical record system with [employer] dictation system. Although this document has been carefully reviewed, there may still be some phonetic and typographical errors. These areas are purely typographical due to imperfections of the software programs, and do not reflect any compromise in the patient's medical care. Plan discussed with: Patient, Other (RN) My Orders Orders - GRETCHEN PEREZ [employer]PER[employer]OR [employer] Procedure Category Date Status Time Meropenem 1gm Ivpb PHA 06/21/24 In Process (Merrem 1gm/ Ns) 22:00 Hydrocortisone PHA 06/21/24 In Process Succinate Inj 22:00 Sodium Chl 0.9% PHA 06/21/24 In Process (So... W/Vasopressin 17:00 PTPTT LAB 06/22/24 Logged 11:45 Heparin Drip/D5w PHA 06/22/24 In Process 100units/Ml 05:45 Chest Portable XY 06/22/24 Resulted 07:42 Potassium Chl PHA 06/22/24 In Process 20meq/100ml 09:00 Magnesium Sulfate PHA 06/22/24 In Process 1gm/100ml 09:00 Basic Metabolic Panel LAB 06/23/24 Verified 05:00 Basic Metabolic Panel LAB 06/24/24 Verified 05:00 Basic Metabolic Panel LAB 06/25/24 Verified 05:00 Complete Blood Count LAB 06/23/24 Verified 05:00 Complete Blood Count LAB 06/24/24 Verified 05:00 Complete Blood Count LAB 06/25/24 Verified 05:00 Chest Xray 1 View XY 06/23/24 Logged 05:00 Chest Xray 1 View XY 06/24/24 Logged 05:00 Chest Xray 1 View XY 06/25/24 Logged 05:00 Date of Service: Jun 22, 2024 Billing Provider: GRETCHEN PEREZ NP Common Visit Codes: [id number] CARE 30-74 MIN GRETCHEN PEREZ NP Jun 22, 2024 09:52
[2024-06-22] MEDS: POTASSIUM CHL 20MEQ/50ML 50 ML IV SCH ×2 (10:30→20:43)
--- NOTE | 2024-06-22 11:08 | DVHPN2 ---
Progress Note Date Seen: Jun 22, 2024 Medical Necessity Reason Pt with a Central, PICC or Fol: No Subjective Review of Systems: RESPIRATORY:Abnormal Other Systems: Patient seen and examined by myself today in follow-up, patient remained intubated on ventilator Objective vital signs Vital Sign Date Time Temp Pulse Resp B/P (MAP) Pulse Ox O2 Delivery O2 Flow Rate FiO2 06/22/24 10:15 112 14 98/77 (84) 94 06/22/24 10:00 85 06/22/24 10:00 Mechanical Ventilator+ 06/22/24 08:00 98.8 98.8 Total Intake and Output 06/21/24 06/21/24 06/22/24 15:00 23:00 07:00 Intake Total 702.00 ml 573.05 ml 1119.80 ml Output Total 4150 ml 2600 ml Balance 702.00 ml -3576.95 ml -1480.20 ml medications Current Medications Medications Dose Ordered Sig/Patricia Route Start Time Stop Time Status Last Admin Dose Admin Norepinephrine Bitartrate 250 ml @ 3.75 mls/hr Q24H IV 06/18/24 19:15 06/22/24 02:39 30 MLS/HR Fentanyl Citrate 250 ml @ 2.5 mls/hr Q24H IV 06/18/24 19:45 06/21/24 14:16 10 MLS/HR Ondansetron HCl 4 mg Q4HP PRN IV 06/18/24 19:45 06/21/24 09:27 4 MG Acetaminophen 650 mg Q6HP PRN PA 06/18/24 19:45 Midazolam HCl 50 ml @ 10 mls/hr Q5H IV 06/18/24 20:30 06/22/24 08:58 1 MLS/HR Nitroglycerin 0.4 mg Q5MINP PRN SL 06/18/24 20:45 Morphine Sulfate 2 mg Q30M PRN IV 06/18/24 20:45 Propofol 100 ml @ 5.443 mls/ hr [id number] IV 06/18/24 22:30 06/20/24 08:07 10.886 MLS/HR Furosemide 60 mg DAILY IV 06/20/24 10:00 06/21/24 09:27 60 MG Amiodarone HCl 200 mg BID PO 06/20/24 10:00 06/21/24 22:35 200 MG Pantoprazole Sodium 40 mg BID IV 06/20/24 22:00 06/21/24 22:35 40 MG Enteral Nutritional Formula 1,000 ml 30ML/HR GT 06/20/24 11:15 Thiamine HCl 100 mg DAILY IV 06/20/24 11:15 06/21/24 09:29 100 MG Multivitamins 1 tab DAILY GT 06/21/24 10:00 06/21/24 09:26 1 TAB Albuterol 2.5 mg Q6HR NEB 06/20/24 12:00 06/22/24 06:41 2.5 MG Ipratropium [place] 0.5 mg Q6HR NEB 06/20/24 12:00 06/22/24 06:41 0.5 MG Linezolid 300 ml @ 150 mls/hr Q12HR IV 06/21/24 10:00 06/21/24 22:36 150 MLS/HR Meropenem 50 ml @ 17 mls/hr Q12HR IV 06/21/24 22:00 06/21/24 22:36 17 MLS/HR Hydrocortisone Sodium Succinate 100 mg Q12HR IV 06/21/24 22:00 06/21/24 22:35 100 MG Vasopressin 20 units/Sodium Chloride 100 ml @ 9 mls/hr Q11H7M IV 06/21/24 17:00 Heparin Sodium/ Dextrose 250 ml @ 14 mls/hr [id number] IV 06/22/24 05:45 Potassium Chloride 100 ml @ 50 mls/hr Q2H IV 06/22/24 09:00 06/22/24 12:59 Cancel Potassium Chloride 50 ml @ 50 mls/hr Q2H IV 06/22/24 10:30 06/22/24 13:29 Examination: LUNGS:Normal, CVS:Normal, MSK:Normal laboratory and microbiology Laboratory Tests 06/22/24 04:00 Test 06/22/24 04:00 Range/Units Serum Glucose 150 H 74-106 mg/dL Microbiology Date/Time Source Procedure Growth Status 06/19/24 00:02 Nose MRSA Screen - Final Complete 06/18/24 19:42 Sputum Gram Stain - Final Resulted 06/18/24 19:42 Sputum Respiratory Culture - Preliminary Resulted Problem List/Assessment/Plan Problem List/Assessment/Plan Acute kidney injury secondary to ischemic ATN Status post cardiopulmonary arrest Acute respiratory failure, patient intubated on ventilator NSTEMI Congestive heart failure exacerbation AFib with RVR Hyponatremia due to excess H2O Hypokalemia Hypomagnesemia Recommendations Kidney function slightly improving today Increased urine output Wick catheter Strict I&Os kidney ultrasound reported within normal limit Decrease furosemide to 40 mg once daily KCL replacement Magnesium sulfate IV piggyback Cardiology consult We will continue to follow Plan discussed with: Other (Nurse) My Orders My Orders Orders - SHAYNE KENNEDY MD Procedure Category Date Status Time Magnesium Mark PHA 06/22/24 Transmitted 12:00 Urine Sodium LAB 06/22/24 Verified 11:05 Urine LAB 06/22/24 Verified Protein/Creatinine Urine Creatinine LAB 06/22/24 Verified 11:05 Dietary Evaluation Review Comments: 1) If patient remains NPO for more than 7 days, consider EN/TPN to meet at least 75% of estimated needs 2) If GI route is preferred, consider Jevity 1.2 @ goal rate of 60 mL/hr. Goal rate will provide 1728 kcals, 108g Pro, and 1162 mL free H2O per 24 hrs. TF regimen will meet ~ 80% daily esimated energy needs and exceed daily estinated protein needs 2) Advance patient diet when medically feasible to cardiac diet, pending HAND HEEL SEAT FITTER approval 3) Collect HbA1c 4) Continue current plan of care Expected Outcomes/Goals: 1) patient to receive nutrition support within 7 days of NPO status 2) diet to advance 3) appetite and labs to improve 4) f/u in 3 days SHAYNE KENNEDY MD Jun 22, 2024 11:08
--- NOTE | 2024-06-22 11:09 | DVHPN2 ---
Progress Note - Dictate Date Seen: Jun 22, 2024 Medical Necessity Reason Pt with a Central, PICC or Fol: No Subjective Mr. Pete is a 64 years old gentleman with a history of hypertension, heart disease, congestive heart failure, atrial fibrillation, morbid obesity, he was brought to the hospital on 06/18/2024 with a chief company of cardiopulmonary arrest. I have seen and examined the patient, I have talked to his nurse, son, his granddaughter is in the room. He remained completely nonresponsive, with unstable vital and pulse ox Overnight, the patient was noticed to wake up with less sedation His son and in the room, I have a great them about face condition, including the EEG report Fentanyl 100 mcg/hour, Versed: 1 mg/hour, levo 14 mcg/min, FiO2: 90% Urinalysis, 06/18/2024: WBC: 9, urine leukocyte esterase: Negative UDS, 06/18/2024: Negative Plasma alcohol, 06/18/2024: <3 ABG 06/18/2024: Compensated respiratory acidosis 06/21/2024: Hypoxia, metabolic alkalosis WBC/HB/PLT/MCV, 06/20/2024: 11.1/12.6/109/89.1, 06/21/2024: 14.7/13.3/106/90.9 PT/INR/PTT, 06/22/2024: 13/1.25/139 BUN/CR, 06/20/2024: 38/2.04, 06/21/2024: 33/2.23 Troponin one high sensitivity, 06/18/2024: 61, 154, 585 TBI/AST/ALT/AP, 06/18/2024: 1.3/33/25/69, 06/21/2024: 3.6/78/30/70 ECG, 06/18/2024: Atrial flutter EEG, 06/21/2024: Remarkably abnormal EEG Echocardiogram, 06/20/2024: lvef 40-45% by visual estimate, optison used for LV opacification septal bowing and bounce noted severe RV enlargement and dysfunction noted moderate tricuspid regurg Chest x-ray, 06/18/24: 1. Endotracheal tube 1 cm above the sherri. 2. Cardiomegaly 3. Pulmonary vascular congestion bilaterally Chest x-ray, 06/19/2024: 1. The ETT is in satisfactory position. 2. CHF, small bilateral pleural effusions moderate bilateral lower lung zone pulmonary opacities may represent edema or pneumonia. Recommend clinical and biochemical correlation Chest x-ray, 06/21/2024: There is marked cardiomegaly. Mild pulmonary vascular congestion. No pneumothorax. Support lines and tubes are overpenetrated and difficult to assess. CT head, 06/18/2024: 1. No acute intracranial hemorrhage 2. No CT findings of territorial ischemia. 3. No CT findings of displaced skull fracture vital signs Vital Sign Date Time Temp Pulse Resp B/P (MAP) Pulse Ox O2 Delivery O2 Flow Rate FiO2 06/22/24 10:15 112 14 98/77 (84) 94 06/22/24 10:00 85 06/22/24 10:00 Mechanical Ventilator+ 06/22/24 08:00 98.8 98.8 Total Intake and Output 06/21/24 06/21/24 06/22/24 15:00 23:00 07:00 Intake Total 702.00 ml 573.05 ml 1119.80 ml Output Total 4150 ml 2600 ml Balance 702.00 ml -3576.95 ml -1480.20 ml medications Current Medications Medications Dose Ordered Sig/Patricia Route Start Time Stop Time Status Last Admin Dose Admin Norepinephrine Bitartrate 250 ml @ 3.75 mls/hr Q24H IV 06/18/24 19:15 06/22/24 02:39 30 MLS/HR Fentanyl Citrate 250 ml @ 2.5 mls/hr Q24H IV 06/18/24 19:45 06/21/24 14:16 10 MLS/HR Ondansetron HCl 4 mg Q4HP PRN IV 06/18/24 19:45 06/21/24 09:27 4 MG Acetaminophen 650 mg Q6HP PRN [place] 06/18/24 19:45 Midazolam HCl 50 ml @ 10 mls/hr Q5H IV 06/18/24 20:30 06/22/24 08:58 1 MLS/HR Nitroglycerin 0.4 mg Q5MINP PRN SL 06/18/24 20:45 Morphine Sulfate 2 mg Q30M PRN IV 06/18/24 20:45 Propofol 100 ml @ 5.443 mls/ hr [id number] IV 06/18/24 22:30 06/20/24 08:07 10.886 MLS/HR Furosemide 60 mg DAILY IV 06/20/24 10:00 06/21/24 09:27 60 MG Amiodarone HCl 200 mg BID PO 06/20/24 10:00 06/21/24 22:35 200 MG Pantoprazole Sodium 40 mg BID IV 06/20/24 22:00 06/21/24 22:35 40 MG Enteral Nutritional Formula 1,000 ml 30ML/HR GT 06/20/24 11:15 Thiamine HCl 100 mg DAILY IV 06/20/24 11:15 06/21/24 09:29 100 MG Multivitamins 1 tab DAILY GT 06/21/24 10:00 06/21/24 09:26 1 TAB Albuterol 2.5 mg Q6HR NEB 06/20/24 12:00 06/22/24 06:41 2.5 MG Ipratropium Manquin 0.5 mg Q6HR NEB 06/20/24 12:00 06/22/24 06:41 0.5 MG Linezolid 300 ml @ 150 mls/hr Q12HR IV 06/21/24 10:00 06/21/24 22:36 150 MLS/HR Meropenem 50 ml @ 17 mls/hr Q12HR IV 06/21/24 22:00 06/21/24 22:36 17 MLS/HR Hydrocortisone Sodium Succinate 100 mg Q12HR IV 06/21/24 22:00 06/21/24 22:35 100 MG Vasopressin 20 units/Sodium Chloride 100 ml @ 9 mls/hr Q11H7M IV 06/21/24 17:00 Heparin Sodium/ Dextrose 250 ml @ 14 mls/hr [id number] IV 06/22/24 05:45 Potassium Chloride 100 ml @ 50 mls/hr Q2H IV 06/22/24 09:00 06/22/24 12:59 Cancel Potassium Chloride 50 ml @ 50 mls/hr Q2H IV 06/22/24 10:30 06/22/24 13:29 objective The patient is well-nourished and well-developed with no distress. The patient is intubated MENTAL STATUS: Subjective CRANIAL NERVES: Pupils are equal, round and nonreactive.There are corneal reflexes and doll's eyes phenomenon. No signs of facial weakness. There are gagging or coughing reflexes SENSATION: No responses to pain stimuli. MOTOR: Normal tone in the upper and lower extremity. Normal muscle bulk. No fasciculations. No spontaneous movement. REFLEXES: Deep tendon reflexes are symmetrical. No pathological reflexes. CEREBELLAR/COORDINATION: Deferred GAIT/STATION: deferred laboratory and microbiology Laboratory Tests 06/22/24 04:00 Test 06/22/24 04:00 Range/Units Serum Glucose 150 H 74-106 mg/dL Problem List Coma Hypoxic encephalopathy Metabolic encephalopathy Toxic encephalopathy Cardiopulmonary arrest Acute respiratory failure Morbid obesity Sleep-related breathing disorder Congestive heart failure AFib Congestive heart failure History of alcohol abuse Assessment/Plan Monitoring Supportive treatment Follow-up lab Follow-up CT head when he was stable enough ICU care Stabilize vitals/pressor drip Respiratory support/vent management Oxygen IV antibiotics Heparin drip Thiamine supplementation She was prophylaxis/famotidine/pantoprazole DVT prophylaxis/heparin subQ q.12 hours Cardiology on case More recommendation per clinical course This medical document was created using an electronic medical record system with [employer] dictation system. Although this document has been carefully reviewed, there may still be some phonetic and typographical errors. These areas are purely typographical due to imperfections of the software programs, and do not reflect any compromise in the patient's medical care. Prognosis guarded Dietary Evaluation Review Comments: 1) If patient remains NPO for more than 7 days, consider EN/TPN to meet at least 75% of estimated needs 2) If GI route is preferred, consider Jevity 1.2 @ goal rate of 60 mL/hr. Goal rate will provide 1728 kcals, 108g Pro, and 1162 mL free H2O per 24 hrs. TF regimen will meet ~ 80% daily esimated energy needs and exceed daily estinated protein needs 2) Advance patient diet when medically feasible to cardiac diet, pending MORPHOLOGY TEACHER approval 3) Collect HbA1c 4) Continue current plan of care Expected Outcomes/Goals: 1) patient to receive nutrition support within 7 days of NPO status 2) diet to advance 3) appetite and labs to improve 4) f/u in 3 days Plan discussed with: Spouse, Son, Other Critical Care Time(min): 40 LOBO APARICIO MD Jun 22, 2024 11:09
[2024-06-22 14:08] LABS: INR 1.18 (0.9-1.15); Prothrombin Time 12.3 sec (9.3-11.8)
[2024-06-22 14:28] LABS: Partial Thromboplastin Time > 139.0 SEC (24.5-34.5)
[2024-06-22 14:37] LABS: Protein, Urine 25.7 mg/dL (1-14); Protein, Urine 25.9 mg/dL (1-14)
[2024-06-22 14:39] LABS: Creatinine, Urine 49.95 mg/dL (30.0-125.0); Urine Protein/Creatinine Ratio 0.52
[2024-06-22 14:40] LABS: Creatinine, Urine 46.68 mg/dL (30.0-125.0); Urine Protein/Creatinine Ratio 0.55
[2024-06-22] MEDS ORDERED: TPN PER PHARMACY 0 ML IV SCH (14:45)
[2024-06-22] MEDS ORDERED: DEXTROSE (50%) 50ML SYRG IV SCH (16:30)
[2024-06-22] MEDS: InsuLIN REG 1unit/0.01ml Soln (100units/ml) SC SCH (17:57)
[2024-06-22] MEDS: ACCU-CHEK COMFORT CURVE STRIP VI SCH (17:57)
[2024-06-22] MEDS ORDERED: AMINO ACID INFUSION IN D5W 1,000 ML IV ONE (22:00)
[2024-06-22] MEDS: AMINO ACID INFUSION IN D10W 2,000 ML IV ONE (22:01)
[2024-06-22] MEDS: ENOXAPARIN SOD 150 MG/1 ML SYRINGE SC SCH (22:02)
[2024-06-23] VITALS (113 sets, daily range): BP systolic 82–133; BP diastolic 41–85; PULSE 81–121; RESP 13–19; TEMP 97.2–98.3; O2SAT 90–100
[2024-06-23 04:07] LABS: Basophils # (auto) 0 10 ^3/uL (0-0.2); Basophils % (auto) 0.1 % (0.0-2.0); Eosinophils # (auto) 0 10 ^3/uL (0-0.8); Hematocrit 32.2 % (41.0-53.0); Hemoglobin 11.1 g/dL (13.5-17.5); Lymphocytes # (auto) 0.4 10 ^3/uL (0.4-5.4); Lymphocytes % (auto) 4.6 % (10.0-50.0); Mean Corpuscular Hemoglobin 31.1 pg (28.0-32.0); Mean Corpuscular Hgb Conc. 34.6 g/dL (32.0-36.0); Monocytes # (auto) 0.6 10 ^3/uL (0-1.3); Monocytes % (auto) 7.9 % (0.0-12.0); Neutrophils # (auto) 7.1 10 ^3/uL (1.6-8.6); Neutrophils % (auto) 87.4 % (37.0-80.0); Platelet Count (auto) 114 10^3/uL (140-450); Red Blood Cells 3.58 10^6/uL (4.5-5.90); White Blood Cell 8.2 10^3/uL (4.4-10.8)
[2024-06-23 04:42] LABS: Alanine Aminotransferase 20 U/L (7-40); Alkaline Phosphatase 59 U/L (46-116); Anion Gap 6 (5-15); BUN/Creatinine Ratio 19.5 (10.0-20.0); Sodium 136 mmol/L (136-145)
[2024-06-23 04:44] LABS: Phosphorus 3.2 mg/dL (2.4-5.1)
[2024-06-23 04:45] LABS: Albumin 2.9 g/dL (3.2-4.8); Aspartate Aminotransferase 65 U/L (13-40); Bilirubin, Total 3.7 mg/dL (0.2-1.0); Blood Urea Nitrogen 32 mg/dL (9-23); Calcium 8.6 mg/dL (8.7-10.4); Carbon Dioxide 36 mmol/L (20-31); Chloride 94 mmol/L (98-107); Glucose 145 mg/dL (74-106); Potassium 2.9 mmol/L (3.5-5.1); Total Protein 5.6 g/dL (5.7-8.2)
[2024-06-23] MEDS ORDERED: POTASSIUM CHL 20MEQ/100ML 50 ML IV SCH (05:15)
--- NOTE | 2024-06-23 05:24 | DVH ---
EXAM: XR Chest, 1 View CLINICAL INDICATION: pna TECHNIQUE: Frontal view of the chest. COMPARISON: XY CHEST PORTABLE on DOS: 06/22/24, XY CHEST PORTABLE on DOS: 06/21/24, XY CHEST PORTABLE on DOS: 06/21/24, XY CHEST PORTABLE on DOS: 06/20/24, XY CHEST PORTABLE on DOS: 06/19/24 FINDINGS: LUNGS AND PLEURAL SPACES: See below. HEART: Cardiomegaly with pulmonary congestion and edema. Superimposed pneumonia cannot be excluded. MEDIASTINUM: Unremarkable. Normal mediastinal contour. BONES/JOINTS: Unremarkable. No acute fracture. TUBES, LINES AND DEVICES: Stable tubes and lines. OTHER FINDINGS: No significant change from the prior exam. . IMPRESSION: 1. Cardiomegaly with pulmonary congestion and edema. Superimposed pneumonia cannot be excluded. 2. No significant change from the prior exam.
[2024-06-23] MEDS: POTASSIUM CHL 20MEQ/50ML 50 ML IV SCH (05:58)
[2024-06-23 07:38] LABS: Base Excess 11.2 mmol/L (-2.0-3.0)
[2024-06-23] MEDS ORDERED: POTASSIUM CHL 20MEQ/100ML 100 ML IV ONE (08:30)
[2024-06-23] MEDS: FUROSEMIDE 40 MG/4 ML VIAL IV SCH (08:50)
--- NOTE | 2024-06-23 09:19 | DVHPN2 ---
Subjective Chemically sedated Reviewed: Care Plan, H&P, Labs, Previous Orders Changes from previous H/P or p: No Changes General: Per HPI Eyes: No Pain, No Vision change, No Conjunctivae inflammation, No Eyelid inflammation, No Other, No Redness ENT: No Ear pain, No Ear discharge, No Nose pain, No Nose discharge, No Nose congestion, No Mouth pain, No Mouth swelling, No Throat pain, No Throat swelling, No Other Cardiovascular: No Chest Pain, No Palpitations, No Orthopnea, No Paroxysmal Noc. Dyspnea, No Edema, No Lt Headedness, No Other Respiratory: No Cough, No Dry, No Shortness of breath, No SOB with excertion, No Wheezing, No Hemoptysis, No Pleuritic Pain, No Sputum, No Other Gastrointestinal: No Nausea, No Vomiting, No Abdominal Pain, No Diarrhea, No Constipation, No Melena, No Hematochezia, No Other Genitourinary: No Dysuria, No Frequency, No Incontinence, No Hematuria, No Retention, No Other Musculoskeletal: No other, No neck pain, No shoulder pain, No arm pain, No back pain, No hand pain, No leg pain, No foot pain Skin: No Rash, No Lesions, No Jaundice, No Bruising, No Other Objective Vitals Vital Signs Date Time Temp Pulse Resp B/P (MAP) Pulse Ox O2 Delivery O2 Flow Rate FiO2 06/23/24 08:50 102/58 06/23/24 08:00 97.5 93 18 98 97.5 06/23/24 07:44 Mechanical Ventilator+ 70 70 Intake/Output Intake and Output 06/23/24 06:59 Intake Total 2225.90 ml Output Total 2440 ml Balance -214.10 ml Intake Oral 80 ml IV Total 2145.90 ml Output Urine Total 2425 ml Emesis 15 ml General Appearance: moderate distress, Other (sedated and intubated) HEENT: Atraumatic, Other (Pupils unequal now. Nonresponsive.) Lungs: Clear to auscultation, Normal air movement (Decreased breath sounds at bases), Other (Mechanical ventilation) Cardiovascular: Normal S1, Normal S2, Other (Atrial fibrillation) Abdomen: Normal bowel sounds, Soft, No tenderness, No hepatospenomegaly Genitourinary: No Apparent Abnormalities (Wick catheter) Musculoskeletal: Other (Unable to assess) Extremities: No clubbing, No cyanosis Neuro: Other (Chemically sedated) Skin: Dry, Intact, Warm Psych/Mental Status: Other (Chemically sedated) Medications Current Medications Medications Dose Ordered Sig/Patricia Route Start Time Stop Time Status Last Admin Dose Admin Norepinephrine Bitartrate 250 ml @ 3.75 mls/hr Q24H IV 06/18/24 19:15 06/23/24 03:34 15 MLS/HR Fentanyl Citrate 250 ml @ 2.5 mls/hr Q24H IV 06/18/24 19:45 06/22/24 12:20 10 MLS/HR Ondansetron HCl 4 mg Q4HP PRN IV 06/18/24 19:45 06/23/24 05:58 4 MG Acetaminophen 650 mg Q6HP PRN ND 06/18/24 19:45 Midazolam HCl 50 ml @ 10 mls/hr Q5H IV 06/18/24 20:30 06/22/24 08:58 1 MLS/HR Nitroglycerin 0.4 mg Q5MINP PRN SL 06/18/24 20:45 Morphine Sulfate 2 mg Q30M PRN IV 06/18/24 20:45 Propofol 100 ml @ 5.443 mls/ hr [id number] IV 06/18/24 22:30 06/20/24 08:07 10.886 MLS/HR Amiodarone HCl 200 mg BID PO 06/20/24 10:00 06/23/24 08:51 200 MG Pantoprazole Sodium 40 mg BID IV 06/20/24 22:00 06/23/24 08:50 40 MG Multivitamins 1 tab DAILY GT 06/21/24 10:00 06/23/24 08:51 1 TAB Albuterol 2.5 mg Q6HR NEB 06/20/24 12:00 06/23/24 06:11 2.5 MG Ipratropium Vass 0.5 mg Q6HR NEB 06/20/24 12:00 06/23/24 06:12 0.5 MG Linezolid 300 ml @ 150 mls/hr Q12HR IV 06/21/24 10:00 06/23/24 08:51 150 MLS/HR Meropenem 50 ml @ 17 mls/hr Q12HR IV 06/21/24 22:00 06/23/24 08:52 17 MLS/HR Hydrocortisone Sodium Succinate 100 mg Q12HR IV 06/21/24 22:00 06/23/24 08:50 100 MG Vasopressin 20 units/Sodium Chloride 100 ml @ 9 mls/hr Q11H7M IV 06/21/24 17:00 Potassium Chloride 100 ml @ 50 mls/hr Q2H IV 06/22/24 09:00 06/22/24 12:59 Cancel Furosemide 40 mg DAILY IV 06/23/24 10:00 06/23/24 08:50 40 MG Amino Acids 0 ml @ 0 mls/hr PER PHARMACY IV 06/22/24 14:45 Enoxaparin Sodium 150 mg Q12HR SC 06/22/24 22:00 06/23/24 08:51 150 MG Diagnostic Test (Pha) 1 strip Q6HR 06/22/24 18:00 06/23/24 05:58 1 STRIP Insulin Human Regular FOLLOW SLIDING SCALE Q6HR SC 06/22/24 18:00 06/23/24 06:02 2 UNITS Dextrose 50 ml UD IV 06/22/24 16:30 Potassium Chloride 50 ml @ 25 mls/hr Q2H IV 06/23/24 05:30 06/23/24 09:29 06/23/24 08:00 25 MLS/HR Laboratory Results Laboratory Tests 06/23/24 03:00 Chemistry Test 06/23/24 03:00 Albumin 2.9 g/dL (3.2-4.8) L Calcium Level 8.6 mg/dL (8.7-10.4) L Magnesium Level 2.0 mg/dL (1.6-2.6) Phosphorus Level 3.2 mg/dL (2.4-5.1) Total Protein 5.6 g/dL (5.7-8.2) L Coagulation Test 06/22/24 12:00 Prothrombin Time 12.3 sec (9.3-11.8) H Prothrombin Time INR 1.18 (0.9-1.15) H Activated Partial Thromboplast Time > 139.0 SEC (24.5-34.5) *H Lipid panel Test 06/23/24 03:00 Triglycerides Level 92 mg/dL (< 150) LFT Test 06/23/24 03:00 Alanine Aminotransferase (ALT) 20 U/L (7-40) Alkaline Phosphatase 59 U/L (46-116) Aspartate Amino Transferase (AST) 65 U/L (13-40) H Total Bilirubin 3.7 mg/dL (0.2-1.0) H Urinalysis Test 06/18/24 22:11 06/22/24 12:41 Urine Color Yellow (Yellow) Urine Clarity Clear (Clear) Urine pH 6.5 (5.0-9.0) Urine Specific K[place]aid 1.018 (1.001-1.035) Urine Protein 3+ (Negative) H Urine Ketones Negative (Negative) Urine Blood Negative /uL (Negative) Urine Nitrite Negative (Negative) Urine Bilirubin Negative (Negative) Urine Urobilinogen 4 mg/dL (Negative) H Urine Leukocyte Esterase Negative /uL (Negative) Urine RBC 6 /hpf (0 - 3) Urine Microscopic WBC 9 /HPF (0-3) H Urine Squamous Epithelial Cells Few /hpf (<5) Urine Bacteria Few /hpf (None Seen) H Urine Hyaline Casts Few /lpf (0 - 2) Urine Mucus Few (None Seen) Urine Glucose Normal mg/dL (Normal) Urine Creatinine 49.95 mg/dL (30.0-125.0) Urine Protein/Creatinine Ratio 0.52 Urine Sodium 38 mmol/L (40-220) L Urine Total Protein 25.9 mg/dL (1-14) H Blood Gas Results Test 06/23/24 07:24 Arterial Blood pH 7.536 (7.350-7.450) FiO2 % 65.0 Microbiology Microbiology Date/Time Source Procedure Growth Status 06/21/24 11:24 Blood Blood Culture - Preliminary NO GROWTH AFTER 24 HOURS OF INCUBATION. Resulted 06/19/24 00:02 Nose MRSA Screen - Final Complete 06/18/24 19:42 Sputum Gram Stain - Final Resulted 06/18/24 19:42 Sputum Respiratory Culture - Preliminary Resulted Labs and/or images reviewed: Labs reviewed by me, Image(s) reviewed by me Assessment/Plan Assessment/Plan Impression: -cardiopulmonary arrest at home -morbid obesity -alcoholism -acute hypoxic respiratory failure with mechanical ventilation -questionable acute seizure activity given cessation of alcohol four days prior -atrial fibrillation -metabolic encephalopathy -probable aspiration pneumonia Plan: -events: Patient has decrease in FiO2 requirements, now at 65%. Decrease in vasopressor therapy. Long discussion made with the patient's son and were bedside. They stated that neurology as spoke with them. CT scan continues to be pending until patient was stable. TPN to start this evening. -continue current ventilator settings, wean FiO2 to keep saturation greater than 92% -continue bronchodilators and Mucomyst -continue hydrocortisone 100 mg b.i.d. -patient with persistent emesis x2 days. Start parenteral nutrition -continue current antibiotic therapy. Patient remains afebrile, with leukocytosis resolving -nephrology consultation for worsening acute kidney injury -continue anticoagulation with heparin, therapeutic for PE -pulmonology consultation -neurology consultation -repeat labs, chest x-ray, ABG in a.m. -repeat CT scan of the head currently pending -discussed plan of care with the patient's son who was bedside. All questions answered. Critical care time spent with patient discussing and formulating plan of care: 40 minutes. This does not include time spent performing procedures. This medical document was created using an electronic medical record system with [employer] dictation system. Although this document has been carefully reviewed, there may still be some phonetic and typographical errors. These areas are purely typographical due to imperfections of the software programs, and do not reflect any compromise in the patient's medical care. Plan discussed with: Patient, Spouse, Son, Other (RN) My Orders Orders - GRETCHEN PEREZ NP Procedure Category Date Status Time Tpn Per Pharmacy PHA 06/22/24 In Process 14:45 Enoxaparin Sodium PHA 06/22/24 In Process (Lovenox) 22:00 Glucose Blood PHA 06/22/24 In Process (Accu-Chek Comfort 18:00 Insulin R (Human) PHA 06/22/24 In Process (Insulin R) 18:00 Dextrose 50% Syringe PHA 06/22/24 In Process 16:30 Amino Acid Infusion PHA 06/22/24 In Process In D10w (Clinimix 4. 22:00 Clinimix Per Pharmacy MITCH 06/22/24 In Process 22:00 Abg W/ Co-Ox RT 06/23/24 Logged 06:00 Potassium Chl PHA 06/23/24 In Process 20meq/50ml (Potassium 09:15 Date of Service: Jun 23, 2024 Billing Provider: GRETCHEN PEREZ NP Common Visit Codes: [id number] CARE 30-74 MIN GRETCHEN PEREZ NP Jun 23, 2024 09:19
[2024-06-23] MEDS: POTASSIUM CHL 20MEQ/50ML 50 ML IV ONE (09:58)
[2024-06-23] MEDS: acetaZOLAMIDE 250 MG TAB PO ONE (10:44)
--- NOTE | 2024-06-23 11:46 | DVHPN2 ---
Progress Note Date Seen: Jun 23, 2024 Medical Necessity Reason Pt with a Central, PICC or Fol: No Subjective Review of Systems: RESPIRATORY:Abnormal Other Systems: Patient seen and examined by myself today in follow-up Patient remained intubated on ventilator Objective vital signs Vital Sign Date Time Temp Pulse Resp B/P (MAP) Pulse Ox O2 Delivery O2 Flow Rate FiO2 06/23/24 11:13 92 18 110/67 (81) 96 55 06/23/24 10:00 97.9 97.9 06/23/24 09:37 Mechanical Ventilator+ Total Intake and Output 06/22/24 06/22/24 06/23/24 15:00 23:00 07:00 Intake Total 959.25 ml 296 ml 1007.40 ml Output Total 1400 ml 1040 ml Balance 959.25 ml -1104 ml -32.60 ml medications Current Medications Medications Dose Ordered Sig/Patricia Route Start Time Stop Time Status Last Admin Dose Admin Norepinephrine Bitartrate 250 ml @ 3.75 mls/hr Q24H IV 06/18/24 19:15 06/23/24 03:34 15 MLS/HR Fentanyl Citrate 250 ml @ 2.5 mls/hr Q24H IV 06/18/24 19:45 06/22/24 12:20 10 MLS/HR Ondansetron HCl 4 mg Q4HP PRN IV 06/18/24 19:45 06/23/24 05:58 4 MG Acetaminophen 650 mg Q6HP PRN [place] 06/18/24 19:45 Midazolam HCl 50 ml @ 10 mls/hr Q5H IV 06/18/24 20:30 06/22/24 08:58 1 MLS/HR Nitroglycerin 0.4 mg Q5MINP PRN SL 06/18/24 20:45 Morphine Sulfate 2 mg Q30M PRN IV 06/18/24 20:45 Propofol 100 ml @ 5.443 mls/ hr [id number] IV 06/18/24 22:30 06/20/24 08:07 10.886 MLS/HR Amiodarone HCl 200 mg BID PO 06/20/24 10:00 06/23/24 08:51 200 MG Pantoprazole Sodium 40 mg BID IV 06/20/24 22:00 06/23/24 08:50 40 MG Multivitamins 1 tab DAILY GT 06/21/24 10:00 06/23/24 08:51 1 TAB Albuterol 2.5 mg Q6HR NEB 06/20/24 12:00 06/23/24 06:11 2.5 MG Ipratropium [place] 0.5 mg Q6HR NEB 06/20/24 12:00 06/23/24 06:12 0.5 MG Linezolid 300 ml @ 150 mls/hr Q12HR IV 06/21/24 10:00 06/23/24 08:51 150 MLS/HR Meropenem 50 ml @ 17 mls/hr Q12HR IV 06/21/24 22:00 06/23/24 08:52 17 MLS/HR Hydrocortisone Sodium Succinate 100 mg Q12HR IV 06/21/24 22:00 06/23/24 08:50 100 MG Vasopressin 20 units/Sodium Chloride 100 ml @ 9 mls/hr Q11H7M IV 06/21/24 17:00 Potassium Chloride 100 ml @ 50 mls/hr Q2H IV 06/22/24 09:00 06/22/24 12:59 Cancel Furosemide 40 mg DAILY IV 06/23/24 10:00 06/23/24 08:50 40 MG Amino Acids 0 ml @ 0 mls/hr PER PHARMACY IV 06/22/24 14:45 Enoxaparin Sodium 150 mg Q12HR SC 06/22/24 22:00 06/23/24 08:51 150 MG Diagnostic Test (Pha) 1 strip Q6HR 06/22/24 18:00 06/23/24 05:58 1 STRIP Insulin Human Regular FOLLOW SLIDING SCALE Q6HR SC 06/22/24 18:00 06/23/24 06:02 2 UNITS Dextrose 50 ml UD IV 06/22/24 16:30 Examination: LUNGS:Normal, CVS:Normal, MSK:Normal laboratory and microbiology Laboratory Tests 06/23/24 03:00 Test 06/23/24 03:00 Range/Units Serum Glucose 145 H 74-106 mg/dL Microbiology Date/Time Source Procedure Growth Status 06/21/24 11:24 Blood Blood Culture - Preliminary NO GROWTH AFTER 48 HOURS OF INCUBATION. Resulted 06/19/24 00:02 Nose MRSA Screen - Final Complete 06/18/24 19:42 Sputum Gram Stain - Final Resulted 06/18/24 19:42 Sputum Respiratory Culture - Preliminary Resulted Problem List/Assessment/Plan Problem List/Assessment/Plan Acute kidney injury secondary to ischemic ATN Status post cardiopulmonary arrest Acute respiratory failure, patient intubated on ventilator NSTEMI Congestive heart failure exacerbation AFib with RVR Hyponatremia due to excess H2O Hypokalemia Hypomagnesemia Recommendations Kidney function continues to improve Increased urine output Hyponatremia resolved appropriately Wick catheter Strict I&Os kidney ultrasound reported within normal limit Hold furosemide KCL replacement Magnesium sulfate IV piggyback Cardiology consult We will continue to follow Plan discussed with: Other (Nurse) Dietary Evaluation Review Comments: 1) If patient remains NPO for more than 7 days, consider EN/TPN to meet at least 75% of estimated needs 2) If GI route is preferred, consider Jevity 1.2 @ goal rate of 60 mL/hr. Goal rate will provide 1728 kcals, 108g Pro, and 1162 mL free H2O per 24 hrs. TF regimen will meet ~ 80% daily esimated energy needs and exceed daily estinated protein needs 2) Advance patient diet when medically feasible to cardiac diet, pending DIGITAL PROGRAM MANAGER approval 3) Collect HbA1c 4) Continue current plan of care Expected Outcomes/Goals: 1) patient to receive nutrition support within 7 days of NPO status 2) diet to advance 3) appetite and labs to improve 4) f/u in 3 days SHAYNE KENNEDY MD Jun 23, 2024 11:46
--- NOTE | 2024-06-23 21:12 | DVHPN2 ---
Progress Note - Dictate Date Seen: Jun 23, 2024 Medical Necessity Reason Pt with a Central, PICC or Fol: No Subjective Mr. Pete is a 64 years old gentleman with a history of hypertension, heart disease, congestive heart failure, atrial fibrillation, morbid obesity, he was brought to the hospital on 06/18/2024 with a chief company of cardiopulmonary arrest. I have seen and examined the patient, I have talked to his nurse. He was on less sedation, pressor drip, vitamin looks fine, but he is nonresponsive to strong painful stimuli Fentanyl 25 mcg/hour, levo 6 mcg/min, FiO2: 50% Urinalysis, 06/18/2024: WBC: 9, urine leukocyte esterase: Negative UDS, 06/18/2024: Negative Plasma alcohol, 06/18/2024: <3 ABG 06/18/2024: Compensated respiratory acidosis 06/21/2024: Hypoxia, metabolic alkalosis WBC/HB/PLT/MCV, 06/20/2024: 11.1/12.6/109/89.1, 06/21/2024: 14.7/13.3/106/90.9 PT/INR/PTT, 06/22/2024: 13/1.25/139 BUN/CR, 06/20/2024: 38/2.04, 06/21/2024: 33/2.23 Troponin one high sensitivity, 06/18/2024: 61, 154, 585 TBI/AST/ALT/AP, 06/18/2024: 1.3/33/25/69, 06/21/2024: 3.6/78/30/70 ECG, 06/18/2024: Atrial flutter EEG, 06/21/2024: Remarkably abnormal EEG Echocardiogram, 06/20/2024: lvef 40-45% by visual estimate, optison used for LV opacification septal bowing and bounce noted severe RV enlargement and dysfunction noted moderate tricuspid regurg Chest x-ray, 06/18/24: 1. Endotracheal tube 1 cm above the sherri. 2. Cardiomegaly 3. Pulmonary vascular congestion bilaterally Chest x-ray, 06/19/2024: 1. The ETT is in satisfactory position. 2. CHF, small bilateral pleural effusions moderate bilateral lower lung zone pulmonary opacities may represent edema or pneumonia. Recommend clinical and biochemical correlation Chest x-ray, 06/21/2024: There is marked cardiomegaly. Mild pulmonary vascular congestion. No pneumothorax. Support lines and tubes are overpenetrated and difficult to assess. CT head, 06/18/2024: 1. No acute intracranial hemorrhage 2. No CT findings of territorial ischemia. 3. No CT findings of displaced skull fracture vital signs Vital Sign Date Time Temp Pulse Resp B/P (MAP) Pulse Ox O2 Delivery O2 Flow Rate FiO2 06/23/24 20:02 88 18 98/60 (73) 99 50 06/23/24 20:00 Mechanical Ventilator+ 06/23/24 16:00 98.3 98.3 Total Intake and Output 06/22/24 06/22/24 06/23/24 15:00 23:00 07:00 Intake Total 959.25 ml 296 ml 1007.40 ml Output Total 1400 ml 1040 ml Balance 959.25 ml -1104 ml -32.60 ml medications Current Medications Medications Dose Ordered Sig/Patricia Route Start Time Stop Time Status Last Admin Dose Admin Norepinephrine Bitartrate 250 ml @ 3.75 mls/hr Q24H IV 06/18/24 19:15 06/23/24 03:34 15 MLS/HR Fentanyl Citrate 250 ml @ 2.5 mls/hr Q24H IV 06/18/24 19:45 06/22/24 12:20 10 MLS/HR Ondansetron HCl 4 mg Q4HP PRN IV 06/18/24 19:45 06/23/24 05:58 4 MG Acetaminophen 650 mg Q6HP PRN MT 06/18/24 19:45 Midazolam HCl 50 ml @ 10 mls/hr Q5H IV 06/18/24 20:30 06/22/24 08:58 1 MLS/HR Nitroglycerin 0.4 mg Q5MINP PRN SL 06/18/24 20:45 Morphine Sulfate 2 mg Q30M PRN IV 06/18/24 20:45 Propofol 100 ml @ 5.443 mls/ hr [id number] IV 06/18/24 22:30 06/20/24 08:07 10.886 MLS/HR Amiodarone HCl 200 mg BID PO 06/20/24 10:00 06/23/24 08:51 200 MG Pantoprazole Sodium 40 mg BID IV 06/20/24 22:00 06/23/24 08:50 40 MG Multivitamins 1 tab DAILY GT 06/21/24 10:00 06/23/24 08:51 1 TAB Albuterol 2.5 mg Q6HR NEB 06/20/24 12:00 06/23/24 18:24 2.5 MG Ipratropium [place] 0.5 mg Q6HR NEB 06/20/24 12:00 06/23/24 18:24 0.5 MG Linezolid 300 ml @ 150 mls/hr Q12HR IV 06/21/24 10:00 06/23/24 08:51 150 MLS/HR Meropenem 50 ml @ 17 mls/hr Q12HR IV 06/21/24 22:00 06/23/24 08:52 17 MLS/HR Hydrocortisone Sodium Succinate 100 mg Q12HR IV 06/21/24 22:00 06/23/24 08:50 100 MG Vasopressin 20 units/Sodium Chloride 100 ml @ 9 mls/hr Q11H7M IV 06/21/24 17:00 Potassium Chloride 100 ml @ 50 mls/hr Q2H IV 06/22/24 09:00 06/22/24 12:59 Cancel Furosemide 40 mg DAILY IV 06/23/24 10:00 06/23/24 08:50 40 MG Amino Acids 0 ml @ 0 mls/hr PER PHARMACY IV 06/22/24 14:45 Enoxaparin Sodium 150 mg Q12HR SC 06/22/24 22:00 06/23/24 08:51 150 MG Diagnostic Test (Pha) 1 strip Q6HR 06/22/24 18:00 06/23/24 17:31 1 STRIP Insulin Human Regular FOLLOW SLIDING SCALE Q6HR SC 06/22/24 18:00 06/23/24 11:56 2 UNITS Dextrose 50 ml UD IV 06/22/24 16:30 Fat Emulsion Intravenous 50 ml/ Potassium Chloride 40 meq/ Potassium Phosphate 20 meq/ Magnesium Sulfate 12 meq/ Multivitamins 10 ml/Chromium/ Copper/Manganese/ Zinc 1 ml/Amino Acids/Dextrose/ Purified Water 1,088.5455 ml @ 45 mls/hr [id number] IV 06/23/24 22:00 3/14/25 21:59 objective The patient is well-nourished and well-developed with no distress. The patient is intubated MENTAL STATUS: Subjective CRANIAL NERVES: Pupils are equal, round and slightly reactive, right-sided questionably bigger. There are corneal reflexes and doll's eyes phenomenon. No signs of facial weakness. There are gagging or coughing reflexes SENSATION: No responses to pain stimuli. MOTOR: Normal tone in the upper and lower extremity. Normal muscle bulk. No fasciculations. No spontaneous movement. REFLEXES: Deep tendon reflexes are symmetrical. No pathological reflexes. CEREBELLAR/COORDINATION: Deferred GAIT/STATION: deferred laboratory and microbiology Laboratory Tests 06/23/24 03:00 Test 06/23/24 03:00 Range/Units Serum Glucose 145 H 74-106 mg/dL Problem List Coma Hypoxic encephalopathy Metabolic encephalopathy Toxic encephalopathy Cardiopulmonary arrest Acute respiratory failure Morbid obesity Sleep-related breathing disorder Congestive heart failure AFib Congestive heart failure History of alcohol abuse Assessment/Plan Monitoring Supportive treatment Follow-up lab Follow-up CT head when he was stable enough ICU care Stabilize vitals/pressor drip Respiratory support/vent management Oxygen IV antibiotics Lovenox 150 mg subQ q.12 hours Thiamine supplementation GI prophylaxis/pantoprazole TPN Cardiology on case More recommendation per clinical course This medical document was created using an electronic medical record system with [employer] computerized dictation system. Although this document has been carefully reviewed, there may still be some phonetic and typographical errors. These areas are purely typographical due to imperfections of the software programs, and do not reflect any compromise in the patient's medical care. Prognosis guarded Dietary Evaluation Review Comments: 1) If patient remains NPO for more than 7 days, consider EN/TPN to meet at least 75% of estimated needs 2) If GI route is preferred, consider Jevity 1.2 @ goal rate of 60 mL/hr. Goal rate will provide 1728 kcals, 108g Pro, and 1162 mL free H2O per 24 hrs. TF regimen will meet ~ 80% daily esimated energy needs and exceed daily estinated protein needs 2) Advance patient diet when medically feasible to cardiac diet, pending PAINTER DECORATOR approval 3) Collect HbA1c 4) Continue current plan of care Expected Outcomes/Goals: 1) patient to receive nutrition support within 7 days of NPO status 2) diet to advance 3) appetite and labs to improve 4) f/u in 3 days Plan discussed with: Other LOBO APARICIO MD Jun 23, 2024 21:12
[2024-06-23] MEDS: TPN PER PHARMACY IV NR (22:04)
[2024-06-24] VITALS (109 sets, daily range): BP systolic 76–143; BP diastolic 42–91; PULSE 92–134; RESP 14–20; TEMP 97.7–98.5; O2SAT 78–100
--- NOTE | 2024-06-24 02:21 | DVH ---
CHEST RADIOGRAPH Indication: pna Technique: Single frontal view of the chest was obtained Comparison: XY CHEST XRAY 1 VIEW on DOS: 06/23/24, XY CHEST PORTABLE on DOS: 06/22/24, XY CHEST PORTABL E on DOS: 06/21/24 IMPRESSION: Heart is enlarged. Support lines and tubes are somewhat difficult to visualize, how ever appear miguel ángel lar to prior examination. Diffuse pulmonary edema appears unchanged. Small pleural effusions no pneum othorax.
--- NOTE | 2024-06-24 02:26 | DVH ---
EXAM: CT HEAD WITHOUT CONTRAST INDICATION: follow up HCT TECHNIQUE: CT of the head without intravenous contrast. Radiation Dose Information: CT Dose: CTDI volume is 6.6 mGy. Dose-length product is 1446.2 mGy*cm The dose indicators for CT are the volume Computed Tomography (CT) Dose Index (CTDIvol) and the Dose Length Product (DLP), and are measured in units of mGy and mGy-cm, respectively. These indicators are not patient dose, but values generated from the CT scanner acquisition factors. The report includes radiation exposure data for exposures received during this examination. COMPARISON: CT HEAD WITHOUT CONTRAST on DOS: 06/18/24 FINDINGS: There is no evidence of acute intracranial hemorrhage, extra-axial collection, mass effect, midline s hift, herniation or hydrocephalus. Harp-white differentiation is less appreciated with mild sulcal effacement as compared to prior exami nation. Complete opacification of the paranasal sinuses. The calvarium appears intact. IMPRESSION: Harp-white differentiation is less appreciated with mild sulcal effacement as compared to prior exami nation. Findings may be on the basis of cerebral edema. Correlation with clinical symptoms and MRI i s recommended.
[2024-06-24 04:10] LABS: Basophils # (auto) 0 10 ^3/uL (0-0.2); Eosinophils # (auto) 0 10 ^3/uL (0-0.8); Hematocrit 29.9 % (41.0-53.0); Hemoglobin 10.1 g/dL (13.5-17.5); Lymphocytes # (auto) 0.3 10 ^3/uL (0.4-5.4); Mean Corpuscular Hemoglobin 30.2 pg (28.0-32.0); Mean Corpuscular Hgb Conc. 33.7 g/dL (32.0-36.0); Mean Corpuscular Volume 89.5 fL (80.0-100.0); Monocytes # (auto) 0.9 10 ^3/uL (0-1.3); Monocytes % (auto) 10.2 % (0.0-12.0); Neutrophils # (auto) 7.3 10 ^3/uL (1.6-8.6); Neutrophils % (auto) 85.8 % (37.0-80.0); Platelet Count (auto) 126 10^3/uL (140-450); Red Blood Cells 3.34 10^6/uL (4.5-5.90); White Blood Cell 8.5 10^3/uL (4.4-10.8)
[2024-06-24 04:34] LABS: Alanine Aminotransferase 20 U/L (7-40); Albumin 2.8 g/dL (3.2-4.8); Alkaline Phosphatase 55 U/L (46-116); Anion Gap 6 (5-15); Aspartate Aminotransferase 70 U/L (13-40); BUN/Creatinine Ratio 23.1 (10.0-20.0); Bilirubin, Total 4.4 mg/dL (0.2-1.0); Blood Urea Nitrogen 34 mg/dL (9-23); Calcium 8.3 mg/dL (8.7-10.4); Carbon Dioxide 35 mmol/L (20-31); Chloride 96 mmol/L (98-107); Glucose 139 mg/dL (74-106); Magnesium 1.8 mg/dL (1.6-2.6); Phosphorus 3.1 mg/dL (2.4-5.1); Sodium 137 mmol/L (136-145); Total Protein 5.3 g/dL (5.7-8.2)
[2024-06-24] MEDS: MAGNESIUM SULFATE 1GM/100ML 100 ML IV ONE (06:49)
[2024-06-24] MEDS: POTASSIUM CHL 20MEQ/50ML 50 ML IV SCH (06:50)
--- NOTE | 2024-06-24 07:03 | DVHPN2 ---
Subjective Patient unresponsive Reviewed: Care Plan, H&P, Labs, Previous Orders Changes from previous H/P or p: Changes General: Per HPI Eyes: No Pain, No Vision change, No Conjunctivae inflammation, No Eyelid inflammation, No Other, No Redness ENT: No Ear pain, No Ear discharge, No Nose pain, No Nose discharge, No Nose congestion, No Mouth pain, No Mouth swelling, No Throat pain, No Throat swelling, No Other Cardiovascular: No Chest Pain, No Palpitations, No Orthopnea, No Paroxysmal Noc. Dyspnea, No Edema, No Lt Headedness, No Other Respiratory: No Cough, No Dry, No Shortness of breath, No SOB with excertion, No Wheezing, No Hemoptysis, No Pleuritic Pain, No Sputum, No Other Gastrointestinal: No Nausea, No Vomiting, No Abdominal Pain, No Diarrhea, No Constipation, No Melena, No Hematochezia, No Other Genitourinary: No Dysuria, No Frequency, No Incontinence, No Hematuria, No Retention, No Other Musculoskeletal: No other, No neck pain, No shoulder pain, No arm pain, No back pain, No hand pain, No leg pain, No foot pain Skin: No Rash, No Lesions, No Jaundice, No Bruising, No Other Objective Vitals Vital Signs Date Time Temp Pulse Resp B/P (MAP) Pulse Ox O2 Delivery O2 Flow Rate FiO2 06/24/24 06:00 18 98 Mechanical Ventilator+ 50 50 06/24/24 06:00 115 06/24/24 05:00 114/81 (92) 06/24/24 04:00 98.5 98.5 Intake/Output Intake and Output 06/24/24 07:00 Intake Total 2099.05 ml Output Total 2360 ml Balance -260.95 ml Intake Oral 80 ml IV Total 2019.05 ml Output Urine Total 2350 ml Emesis 10 ml General Appearance: moderate distress, Other (sedated and intubated) HEENT: Atraumatic, Other (Pupils unequal now. Nonresponsive.) Lungs: Clear to auscultation, Normal air movement (Decreased breath sounds at bases), Other (Mechanical ventilation) Cardiovascular: Normal S1, Normal S2, Other (Atrial fibrillation) Abdomen: Normal bowel sounds, Soft, No tenderness, No hepatospenomegaly Genitourinary: No Apparent Abnormalities (Wick catheter) Musculoskeletal: Other (Unable to assess) Extremities: No clubbing, No cyanosis Neuro: Other (No response to pain. Pupils nonreactive. Off sedation.) Skin: Dry, Intact, Warm Psych/Mental Status: Other (Chemically sedated) Medications Current Medications Medications Dose Ordered Sig/Patricia Route Start Time Stop Time Status Last Admin Dose Admin Norepinephrine Bitartrate 250 ml @ 3.75 mls/hr Q24H IV 06/18/24 19:15 06/24/24 00:22 15 MLS/HR Fentanyl Citrate 250 ml @ 2.5 mls/hr Q24H IV 06/18/24 19:45 06/22/24 12:20 10 MLS/HR Ondansetron HCl 4 mg Q4HP PRN IV 06/18/24 19:45 06/23/24 05:58 4 MG Acetaminophen 650 mg Q6HP PRN NE 06/18/24 19:45 Midazolam HCl 50 ml @ 10 mls/hr Q5H IV 06/18/24 20:30 06/22/24 08:58 1 MLS/HR Nitroglycerin 0.4 mg Q5MINP PRN SL 06/18/24 20:45 Morphine Sulfate 2 mg Q30M PRN IV 06/18/24 20:45 Propofol 100 ml @ 5.443 mls/ hr [id number] IV 06/18/24 22:30 06/20/24 08:07 10.886 MLS/HR Amiodarone HCl 200 mg BID PO 06/20/24 10:00 06/23/24 22:05 200 MG Pantoprazole Sodium 40 mg BID IV 06/20/24 22:00 06/23/24 22:05 40 MG Multivitamins 1 tab DAILY GT 06/21/24 10:00 06/23/24 08:51 1 TAB Albuterol 2.5 mg Q6HR NEB 06/20/24 12:00 06/24/24 06:18 2.5 MG Ipratropium [place] 0.5 mg Q6HR NEB 06/20/24 12:00 06/24/24 06:18 0.5 MG Linezolid 300 ml @ 150 mls/hr Q12HR IV 06/21/24 10:00 06/23/24 22:04 150 MLS/HR Meropenem 50 ml @ 17 mls/hr Q12HR IV 06/21/24 22:00 06/23/24 22:05 17 MLS/HR Hydrocortisone Sodium Succinate 100 mg Q12HR IV 06/21/24 22:00 06/23/24 22:05 100 MG Vasopressin 20 units/Sodium Chloride 100 ml @ 9 mls/hr Q11H7M IV 06/21/24 17:00 Potassium Chloride 100 ml @ 50 mls/hr Q2H IV 06/22/24 09:00 06/22/24 12:59 Cancel Furosemide 40 mg DAILY IV 06/23/24 10:00 06/23/24 08:50 40 MG Amino Acids 0 ml @ 0 mls/hr PER PHARMACY IV 06/22/24 14:45 Enoxaparin Sodium 150 mg Q12HR SC 06/22/24 22:00 06/23/24 22:05 150 MG Diagnostic Test (Pha) 1 strip Q6HR 06/22/24 18:00 06/24/24 06:09 1 STRIP Insulin Human Regular FOLLOW SLIDING SCALE Q6HR SC 06/22/24 18:00 06/24/24 06:09 2 UNITS Dextrose 50 ml UD IV 06/22/24 16:30 Fat Emulsion Intravenous 50 ml/ Potassium Chloride 40 meq/ Potassium Phosphate 20 meq/ Magnesium Sulfate 12 meq/ Multivitamins 10 ml/Chromium/ Copper/Manganese/ Zinc 1 ml/Amino Acids/Dextrose/ Purified Water 1,088.5455 ml @ 45 mls/hr [id number] IV 06/23/24 22:00 06/24/24 21:59 06/23/24 22:04 45 MLS/HR Potassium Chloride 50 ml @ 25 mls/hr Q2H IV 06/24/24 06:30 06/24/24 10:29 06/24/24 06:50 25 MLS/HR Laboratory Results Laboratory Tests 06/24/24 03:30 Chemistry Test 06/24/24 03:30 Albumin 2.8 g/dL (3.2-4.8) L Calcium Level 8.3 mg/dL (8.7-10.4) L Magnesium Level 1.8 mg/dL (1.6-2.6) Phosphorus Level 3.1 mg/dL (2.4-5.1) Total Protein 5.3 g/dL (5.7-8.2) L LFT Test 06/24/24 03:30 Alanine Aminotransferase (ALT) 20 U/L (7-40) Alkaline Phosphatase 55 U/L (46-116) Aspartate Amino Transferase (AST) 70 U/L (13-40) H Total Bilirubin 4.4 mg/dL (0.2-1.0) H Urinalysis Test 06/18/24 22:11 06/22/24 12:41 Urine Color Yellow (Yellow) Urine Clarity Clear (Clear) Urine pH 6.5 (5.0-9.0) Urine Specific [place] 1.018 (1.001-1.035) Urine Protein 3+ (Negative) H Urine Ketones Negative (Negative) Urine Blood Negative /uL (Negative) Urine Nitrite Negative (Negative) Urine Bilirubin Negative (Negative) Urine Urobilinogen 4 mg/dL (Negative) H Urine Leukocyte Esterase Negative /uL (Negative) Urine RBC 6 /hpf (0 - 3) Urine Microscopic WBC 9 /HPF (0-3) H Urine Squamous Epithelial Cells Few /hpf (<5) Urine Bacteria Few /hpf (None Seen) H Urine Hyaline Casts Few /lpf (0 - 2) Urine Mucus Few (None Seen) Urine Glucose Normal mg/dL (Normal) Urine Creatinine 49.95 mg/dL (30.0-125.0) Urine Protein/Creatinine Ratio 0.52 Urine Sodium 38 mmol/L (40-220) L Urine Total Protein 25.9 mg/dL (1-14) H Blood Gas Results Test 06/23/24 07:24 Arterial Blood pH 7.536 (7.350-7.450) FiO2 % 65.0 Microbiology Microbiology Date/Time Source Procedure Growth Status 06/21/24 11:24 Blood Blood Culture - Preliminary NO GROWTH AFTER 48 HOURS OF INCUBATION. Resulted 06/19/24 00:02 Nose MRSA Screen - Final Complete 06/18/24 19:42 Sputum Gram Stain - Final Resulted 06/18/24 19:42 Sputum Respiratory Culture - Preliminary Resulted Labs and/or images reviewed: Labs reviewed by me, Image(s) reviewed by me Assessment/Plan Assessment/Plan Impression: -cardiopulmonary arrest at home -morbid obesity -alcoholism -acute hypoxic respiratory failure with mechanical ventilation -questionable acute seizure activity given cessation of alcohol four days prior -atrial fibrillation -metabolic encephalopathy -probable aspiration pneumonia Plan: -events: Patient now on FiO2 of 50%. Patient went for CT scan of the head which reveals diffuse cerebral edema. Patient has been weaned off of all sedation with no response. Improved renal function. Recommend family meeting to discuss prognosis of patient. -continue current ventilator settings, wean FiO2 to keep saturation greater than 92% -continue bronchodilators and Mucomyst -continue hydrocortisone 100 mg b.i.d. -continue current antibiotic therapy. Patient remains afebrile, with leukocytosis resolving -potassium replacement -neurology consultation -repeat labs, chest x-ray, ABG in a.m. Critical care time spent with patient discussing and formulating plan of care: 40 minutes. This does not include time spent performing procedures. This medical document was created using an electronic medical record system with [employer] dictation system. Although this document has been carefully reviewed, there may still be some phonetic and typographical errors. These areas are purely typographical due to imperfections of the software programs, and do not reflect any compromise in the patient's medical care. Plan discussed with: Patient, Other (RN) My Orders Orders - GRETCHEN PEREZ NP Procedure Category Date Status Time Abg W/ Co-Ox RT 06/23/24 Logged 06:00 Amino Acid PHA 06/23/24 In Process Infusion... W/Fat 22:00 Tpn Per Pharmacy MITCH 06/23/24 In Process 22:00 Date of Service: Jun 24, 2024 Billing Provider: GRETCHEN PEREZ NP Common Visit Codes: [id number] CARE 30-74 MIN GRETCHEN PEREZ NP Jun 24, 2024 07:03
[2024-06-24 08:59] LABS: Base Excess 9.4 mmol/L (-2.0-3.0)
--- NOTE | 2024-06-24 13:02 | DVHPN2 ---
Progress Note - Dictate Date Seen: Jun 24, 2024 Medical Necessity Reason Pt with a Central, PICC or Fol: No Subjective Remains intubated, family at bedside vital signs Vital Sign Date Time Temp Pulse Resp B/P (MAP) Pulse Ox O2 Delivery O2 Flow Rate FiO2 06/24/24 12:00 50 06/24/24 12:00 18 99 Mechanical Ventilator+ 06/24/24 12:00 104 06/24/24 11:58 141/84 06/24/24 08:00 97.7 97.7 Total Intake and Output 06/23/24 06/23/24 06/24/24 15:00 23:00 07:00 Intake Total 864.00 ml 469.00 ml 1018.55 ml Output Total 1350 ml 1010 ml Balance 864.00 ml -881.00 ml 8.55 ml medications Current Medications Medications Dose Ordered Sig/Patricia Route Start Time Stop Time Status Last Admin Dose Admin Norepinephrine Bitartrate 250 ml @ 3.75 mls/hr Q24H IV 06/18/24 19:15 06/24/24 00:22 15 MLS/HR Fentanyl Citrate 250 ml @ 2.5 mls/hr Q24H IV 06/18/24 19:45 06/22/24 12:20 10 MLS/HR Ondansetron HCl 4 mg Q4HP PRN IV 06/18/24 19:45 06/23/24 05:58 4 MG Acetaminophen 650 mg Q6HP PRN FL 06/18/24 19:45 Midazolam HCl 50 ml @ 10 mls/hr Q5H IV 06/18/24 20:30 06/22/24 08:58 1 MLS/HR Nitroglycerin 0.4 mg Q5MINP PRN SL 06/18/24 20:45 Morphine Sulfate 2 mg Q30M PRN IV 06/18/24 20:45 Propofol 100 ml @ 5.443 mls/ hr [id number] IV 06/18/24 22:30 06/20/24 08:07 10.886 MLS/HR Amiodarone HCl 200 mg BID PO 06/20/24 10:00 06/24/24 09:06 200 MG Pantoprazole Sodium 40 mg BID IV 06/20/24 22:00 06/24/24 09:05 40 MG Multivitamins 1 tab DAILY GT 06/21/24 10:00 06/24/24 09:04 1 TAB Albuterol 2.5 mg Q6HR NEB 06/20/24 12:00 06/24/24 12:04 2.5 MG Ipratropium [place] 0.5 mg Q6HR NEB 06/20/24 12:00 06/24/24 12:04 0.5 MG Linezolid 300 ml @ 150 mls/hr Q12HR IV 06/21/24 10:00 06/24/24 09:06 150 MLS/HR Hydrocortisone Sodium Succinate 100 mg Q12HR IV 06/21/24 22:00 06/24/24 09:06 100 MG Vasopressin 20 units/Sodium Chloride 100 ml @ 9 mls/hr Q11H7M IV 06/21/24 17:00 Potassium Chloride 100 ml @ 50 mls/hr Q2H IV 06/22/24 09:00 06/22/24 12:59 Cancel Furosemide 40 mg DAILY IV 06/23/24 10:00 06/24/24 09:04 40 MG Amino Acids 0 ml @ 0 mls/hr PER PHARMACY IV 06/22/24 14:45 Enoxaparin Sodium 150 mg Q12HR SC 06/22/24 22:00 06/24/24 09:07 150 MG Diagnostic Test (Pha) 1 strip Q6HR 06/22/24 18:00 06/24/24 12:28 1 STRIP Insulin Human Regular FOLLOW SLIDING SCALE Q6HR SC 06/22/24 18:00 06/24/24 12:37 2 UNITS Dextrose 50 ml UD IV 06/22/24 16:30 Fat Emulsion Intravenous 50 ml/ Potassium Chloride 40 meq/ Potassium Phosphate 20 meq/ Magnesium Sulfate 12 meq/ Multivitamins 10 ml/Chromium/ Copper/Manganese/ Zinc 1 ml/Amino Acids/Dextrose/ Purified Water 1,088.5455 ml @ 45 mls/hr [id number] IV 06/23/24 22:00 06/24/24 21:59 06/23/24 22:04 45 MLS/HR Fat Emulsion Intravenous 50 ml/ Sodium Chloride 10 meq/Sodium Phosphate 10 meq/ Potassium Chloride 60 meq/ Potassium Phosphate 10 meq/ Magnesium Sulfate 16 meq/ Multivitamins 10 ml/Amino Acids/ Dextrose 1,101.2727 ml @ 45 mls/hr [id number] IV 06/24/24 22:00 06/25/24 21:59 Meropenem 50 ml @ 17 mls/hr Q8H IV 06/24/24 17:00 objective Gen: nad, intubated heent: nc/at, mmm lungs: Occasional rhonchi cvs: no rub abd: soft, bowel sounds audible laboratory and microbiology Laboratory Tests 06/24/24 03:30 Test 06/24/24 03:30 Range/Units Serum Glucose 139 H 74-106 mg/dL Assessment/Plan Problem List/Assessment/Plan Acute kidney injury secondary to ischemic ATN Status post cardiopulmonary arrest Acute respiratory failure, patient intubated on ventilator NSTEMI Congestive heart failure exacerbation AFib with RVR Hyponatremia due to excess H2O Hypokalemia Hypomagnesemia Recommendations Even to slightly negative fluid balance Use of loop diuretic as needed We will continue to follow during time course of IVORY recovery Dietary Evaluation Review Comments: 1) If patient remains NPO for more than 7 days, consider EN/TPN to meet at least 75% of estimated needs 2) If GI route is preferred, consider Jevity 1.2 @ goal rate of 60 mL/hr. Goal rate will provide 1728 kcals, 108g Pro, and 1162 mL free H2O per 24 hrs. TF regimen will meet ~ 80% daily esimated energy needs and exceed daily estinated protein needs 2) Advance patient diet when medically feasible to cardiac diet, pending SENIOR DIRECTOR MARKETING approval 3) Collect HbA1c 4) Continue current plan of care Expected Outcomes/Goals: 1) patient to receive nutrition support within 7 days of NPO status 2) diet to advance 3) appetite and labs to improve 4) f/u in 3 days Plan discussed with: BRIAN Willams MD Jun 24, 2024 13:02
[2024-06-24] MEDS: MEROPENEM 1GM IVPB 50 ML IV SCH (16:00)
--- NOTE | 2024-06-24 20:39 | DVHPN2 ---
Progress Note - Dictate Date Seen: Jun 24, 2024 Medical Necessity Reason Pt with a Central, PICC or Fol: No Subjective Mr. Pete is a 64 years old gentleman with a history of hypertension, heart disease, congestive heart failure, atrial fibrillation, morbid obesity, he was brought to the hospital on 06/18/2024 with a chief company of cardiopulmonary arrest. I have seen and examined the patient, I have talked to his nurse. He is not on sedation, but is on pressor drip, he is nonresponsive to strong painful stimuli Levo 10 mcg/min, FiO2: 50% Urinalysis, 06/18/2024: WBC: 9, urine leukocyte esterase: Negative UDS, 06/18/2024: Negative Plasma alcohol, 06/18/2024: <3 ABG 06/18/2024: Compensated respiratory acidosis 06/21/2024: Hypoxia, metabolic alkalosis WBC/HB/PLT/MCV, 06/20/2024: 11.1/12.6/109/89.1, 06/21/2024: 14.7/13.3/106/90.9 PT/INR/PTT, 06/22/2024: 13/1.25/139 BUN/CR, 06/20/2024: 38/2.04, 06/21/2024: 33/2.23 Troponin one high sensitivity, 06/18/2024: 61, 154, 585 TBI/AST/ALT/AP, 06/18/2024: 1.3/33/25/69, 06/21/2024: 3.6/78/30/70 ECG, 06/18/2024: Atrial flutter EEG, 06/21/2024: Remarkably abnormal EEG Echocardiogram, 06/20/2024: lvef 40-45% by visual estimate, optison used for LV opacification septal bowing and bounce noted severe RV enlargement and dysfunction noted moderate tricuspid regurg Chest x-ray, 06/18/24: 1. Endotracheal tube 1 cm above the sherri. 2. Cardiomegaly 3. Pulmonary vascular congestion bilaterally Chest x-ray, 06/19/2024: 1. The ETT is in satisfactory position. 2. CHF, small bilateral pleural effusions moderate bilateral lower lung zone pulmonary opacities may represent edema or pneumonia. Recommend clinical and biochemical correlation Chest x-ray, 06/21/2024: There is marked cardiomegaly. Mild pulmonary vascular congestion. No pneumothorax. Support lines and tubes are overpenetrated and difficult to assess. CT head, 06/18/2024: 1. No acute intracranial hemorrhage 2. No CT findings of territorial ischemia. 3. No CT findings of displaced skull fracture CT head, 06/24/2024: Harp-white differentiation is less appreciated with mild sulcal effacement as compared to prior examination. Findings may be on the basis of cerebral edema. Correlation with clinical symptoms and MRI is recommended. vital signs Vital Sign Date Time Temp Pulse Resp B/P (MAP) Pulse Ox O2 Delivery O2 Flow Rate FiO2 06/24/24 20:07 106 20 110/75 100 50 06/24/24 18:15 98.5 98.5 06/24/24 18:00 Mechanical Ventilator+ Total Intake and Output 06/23/24 06/23/24 06/24/24 15:00 23:00 07:00 Intake Total 864.00 ml 469.00 ml 1018.55 ml Output Total 1350 ml 1010 ml Balance 864.00 ml -881.00 ml 8.55 ml medications Current Medications Medications Dose Ordered Sig/Patricia Route Start Time Stop Time Status Last Admin Dose Admin Norepinephrine Bitartrate 250 ml @ 3.75 mls/hr Q24H IV 06/18/24 19:15 06/24/24 15:58 18.75 MLS/HR Fentanyl Citrate 250 ml @ 2.5 mls/hr Q24H IV 06/18/24 19:45 06/22/24 12:20 10 MLS/HR Ondansetron HCl 4 mg Q4HP PRN IV 06/18/24 19:45 06/23/24 05:58 4 MG Acetaminophen 650 mg Q6HP PRN AL 06/18/24 19:45 Midazolam HCl 50 ml @ 10 mls/hr Q5H IV 06/18/24 20:30 06/22/24 08:58 1 MLS/HR Nitroglycerin 0.4 mg Q5MINP PRN SL 06/18/24 20:45 Morphine Sulfate 2 mg Q30M PRN IV 06/18/24 20:45 Propofol 100 ml @ 5.443 mls/ hr [id number] IV 06/18/24 22:30 06/20/24 08:07 10.886 MLS/HR Amiodarone HCl 200 mg BID PO 06/20/24 10:00 06/24/24 09:06 200 MG Pantoprazole Sodium 40 mg BID IV 06/20/24 22:00 06/24/24 09:05 40 MG Multivitamins 1 tab DAILY GT 06/21/24 10:00 06/24/24 09:04 1 TAB Albuterol 2.5 mg Q6HR NEB 06/20/24 12:00 06/24/24 18:23 2.5 MG Ipratropium [place] 0.5 mg Q6HR NEB 06/20/24 12:00 06/24/24 18:23 0.5 MG Linezolid 300 ml @ 150 mls/hr Q12HR IV 06/21/24 10:00 06/24/24 09:06 150 MLS/HR Hydrocortisone Sodium Succinate 100 mg Q12HR IV 06/21/24 22:00 06/24/24 09:06 100 MG Vasopressin 20 units/Sodium Chloride 100 ml @ 9 mls/hr Q11H7M IV 06/21/24 17:00 Potassium Chloride 100 ml @ 50 mls/hr Q2H IV 06/22/24 09:00 06/22/24 12:59 Cancel Furosemide 40 mg DAILY IV 06/23/24 10:00 06/24/24 09:04 40 MG Amino Acids 0 ml @ 0 mls/hr PER PHARMACY IV 06/22/24 14:45 Enoxaparin Sodium 150 mg Q12HR SC 06/22/24 22:00 06/24/24 09:07 150 MG Diagnostic Test (Pha) 1 strip Q6HR 06/22/24 18:00 06/24/24 18:27 1 STRIP Insulin Human Regular FOLLOW SLIDING SCALE Q6HR SC 06/22/24 18:00 06/24/24 18:26 2 UNITS Dextrose 50 ml UD IV 06/22/24 16:30 Fat Emulsion Intravenous 50 ml/ Potassium Chloride 40 meq/ Potassium Phosphate 20 meq/ Magnesium Sulfate 12 meq/ Multivitamins 10 ml/Chromium/ Copper/Manganese/ Zinc 1 ml/Amino Acids/Dextrose/ Purified Water 1,088.5455 ml @ 45 mls/hr [id number] IV 06/23/24 22:00 06/24/24 21:59 06/23/24 22:04 45 MLS/HR Fat Emulsion Intravenous 50 ml/ Sodium Chloride 10 meq/Sodium Phosphate 10 meq/ Potassium Chloride 60 meq/ Potassium Phosphate 10 meq/ Magnesium Sulfate 16 meq/ Multivitamins 10 ml/Amino Acids/ Dextrose 1,101.2727 ml @ 45 mls/hr [id number] IV 06/24/24 22:00 06/25/24 21:59 Meropenem 50 ml @ 17 mls/hr Q8H IV 06/24/24 17:00 06/24/24 16:00 17 MLS/HR objective The patient is well-nourished and well-developed with no distress. The patient is intubated MENTAL STATUS: Subjective CRANIAL NERVES: Pupils are equal, round and nonreactive. There are corneal reflexes and doll's eyes phenomenon. No signs of facial weakness. There are gagging or coughing reflexes SENSATION: No responses to pain stimuli. MOTOR: Normal tone in the upper and lower extremity. Normal muscle bulk. No fasciculations. No spontaneous movement. REFLEXES: Deep tendon reflexes are symmetrical. No pathological reflexes. CEREBELLAR/COORDINATION: Deferred GAIT/STATION: deferred laboratory and microbiology Laboratory Tests 06/24/24 03:30 Test 06/24/24 03:30 Range/Units Serum Glucose 139 H 74-106 mg/dL Problem List Coma with diffuse brain edema on CT Hypoxic encephalopathy Metabolic encephalopathy Toxic encephalopathy Cardiopulmonary arrest Acute respiratory failure Morbid obesity Sleep-related breathing disorder Congestive heart failure AFib Congestive heart failure History of alcohol abuse Assessment/Plan Monitoring Supportive treatment Follow-up lab ICU care Stabilize vitals/pressor drip Respiratory support/vent management Oxygen IV antibiotics Lovenox 150 mg subQ q.12 hours Thiamine supplementation GI prophylaxis/pantoprazole TPN Cardiology on case More recommendation per clinical course Poor prognosis for meaningful recovery This medical document was created using an electronic medical record system with [employer] dictation system. Although this document has been carefully reviewed, there may still be some phonetic and typographical errors. These areas are purely typographical due to imperfections of the software programs, and do not reflect any compromise in the patient's medical care. Prognosis guarded Dietary Evaluation Review Comments: 1) If patient remains NPO for more than 7 days, consider EN/TPN to meet at least 75% of estimated needs 2) If GI route is preferred, consider Jevity 1.2 @ goal rate of 60 mL/hr. Goal rate will provide 1728 kcals, 108g Pro, and 1162 mL free H2O per 24 hrs. TF regimen will meet ~ 80% daily esimated energy needs and exceed daily estinated protein needs 2) Advance patient diet when medically feasible to cardiac diet, pending [employer] approval 3) Collect HbA1c 4) Continue current plan of care Expected Outcomes/Goals: 1) patient to receive nutrition support within 7 days of NPO status 2) diet to advance 3) appetite and labs to improve 4) f/u in 3 days Plan discussed with: Other LOBO APARICIO MD Jun 24, 2024 20:38
[2024-06-24] MEDS: TPN PER PHARMACY IV NR (22:10)
[2024-06-25] VITALS (111 sets, daily range): BP systolic 76–119; BP diastolic 33–80; PULSE 79–152; RESP 12–30; TEMP 98–99.1; O2SAT 91–100
[2024-06-25 03:47] LABS: Basophils # (auto) 0 10 ^3/uL (0-0.2); Eosinophils # (auto) 0 10 ^3/uL (0-0.8); Eosinophils % (auto) 0.1 % (0.0-7.0); Lymphocytes # (auto) 0.5 10 ^3/uL (0.4-5.4); Monocytes # (auto) 1.1 10 ^3/uL (0-1.3); Red Blood Cells 2.78 10^6/uL (4.5-5.90); Red Cell Distribution Width 14.1 % (11.8-14.3)
[2024-06-25 03:50] LABS: Hematocrit 24.9 % (41.0-53.0); Hemoglobin 8.5 g/dL (13.5-17.5); Lymphocytes % (auto) 5.1 % (10.0-50.0); Mean Corpuscular Hemoglobin 30.5 pg (28.0-32.0); Mean Corpuscular Hgb Conc. 34.1 g/dL (32.0-36.0); Mean Corpuscular Volume 89.6 fL (80.0-100.0); Monocytes % (auto) 11.5 % (0.0-12.0); Neutrophils # (auto) 7.9 10 ^3/uL (1.6-8.6); Neutrophils % (auto) 83.3 % (37.0-80.0); Platelet Count (auto) 131 10^3/uL (140-450); White Blood Cell 9.5 10^3/uL (4.4-10.8)
[2024-06-25 04:08] LABS: Alanine Aminotransferase 31 U/L (7-40); Alkaline Phosphatase 54 U/L (46-116); Anion Gap 6 (5-15); BUN/Creatinine Ratio 31.2 (10.0-20.0); Sodium 139 mmol/L (136-145)
[2024-06-25 04:09] LABS: Albumin 2.7 g/dL (3.2-4.8); Aspartate Aminotransferase 80 U/L (13-40); Bilirubin, Total 4.7 mg/dL (0.2-1.0); Blood Urea Nitrogen 44 mg/dL (9-23); Calcium 8.2 mg/dL (8.7-10.4); Carbon Dioxide 35 mmol/L (20-31); Chloride 98 mmol/L (98-107); Glucose 152 mg/dL (74-106); Phosphorus 3.2 mg/dL (2.4-5.1); Potassium 3.2 mmol/L (3.5-5.1); Total Protein 5.2 g/dL (5.7-8.2)
[2024-06-25] MEDS: POTASSIUM CHL 20MEQ/50ML 50 ML IV ONE (05:29)
--- NOTE | 2024-06-25 05:45 | DVH ---
CHEST RADIOGRAPH Indication: pna Technique: Single frontal view of the chest was obtained COMPARISON: XY CHEST XRAY 1 VIEW on DOS: 06/24/24, XY CHEST XRAY 1 VIEW on DOS: 06/23/24, XY CHEST PORT ABLE on DOS: 06/22/24, XY CHEST PORTABLE on DOS: 06/21/24, XY CHEST PORTABLE on DOS: 06/21/24 FINDINGS: Lines and Tubes: Endotracheal tube in satisfactory position. Lungs: Multifocal airspace disease. Pleura: Small right pleural effusion. No pneumothorax. Cardiomediastinal contours: Unremarkable Bones: Unremarkable IMPRESSION: Lines and tubes in satisfactory position. No significant interval change.
[2024-06-25 05:47] LABS: Bilirubin, Direct 3.1 mg/dL (<0.3)
[2024-06-25 07:05] LABS: Base Excess 8.7 mmol/L (-2.0-3.0)
--- NOTE | 2024-06-25 10:29 | DVHPN2 ---
Subjective Patient unresponsive Reviewed: Care Plan, H&P, Labs, Previous Orders Changes from previous H/P or p: No Changes General: Per HPI Eyes: No Pain, No Vision change, No Conjunctivae inflammation, No Eyelid inflammation, No Other, No Redness ENT: No Ear pain, No Ear discharge, No Nose pain, No Nose discharge, No Nose congestion, No Mouth pain, No Mouth swelling, No Throat pain, No Throat swelling, No Other Cardiovascular: No Chest Pain, No Palpitations, No Orthopnea, No Paroxysmal Noc. Dyspnea, No Edema, No Lt Headedness, No Other Respiratory: No Cough, No Dry, No Shortness of breath, No SOB with excertion, No Wheezing, No Hemoptysis, No Pleuritic Pain, No Sputum, No Other Gastrointestinal: No Nausea, No Vomiting, No Abdominal Pain, No Diarrhea, No Constipation, No Melena, No Hematochezia, No Other Genitourinary: No Dysuria, No Frequency, No Incontinence, No Hematuria, No Retention, No Other Musculoskeletal: No other, No neck pain, No shoulder pain, No arm pain, No back pain, No hand pain, No leg pain, No foot pain Skin: No Rash, No Lesions, No Jaundice, No Bruising, No Other Objective Vitals Vital Signs Date Time Temp Pulse Resp B/P (MAP) Pulse Ox O2 Delivery O2 Flow Rate FiO2 06/25/24 09:49 95/54 06/25/24 09:06 122 18 95 45 06/25/24 07:50 Mechanical Ventilator+ 06/25/24 04:00 98.0 98.0 Intake/Output Intake and Output 06/25/24 07:00 Intake Total 2357.70 ml Output Total 2075 ml Balance 282.70 ml Intake Oral 80 ml IV Total 2277.70 ml Output Urine Total 2075 ml General Appearance: moderate distress, Other (Patient intubated sedation off.) HEENT: Atraumatic, Other (Pupils unequal now. Nonresponsive.) Lungs: Clear to auscultation, Normal air movement (Decreased breath sounds at bases), Other (Mechanical ventilation) Cardiovascular: Normal S1, Normal S2, Other (Atrial fibrillation) Abdomen: Normal bowel sounds, Soft, No tenderness, No hepatospenomegaly Genitourinary: No Apparent Abnormalities (Wick catheter) Musculoskeletal: Other (Unable to assess) Extremities: No clubbing, No cyanosis Neuro: Other (Sedation is off. Pupils nonreactive. Positive gag and cough. Cranial nerves not intact.) Skin: Dry, Intact, Warm Psych/Mental Status: Other (No motor movement. Unable to assess.) Medications Current Medications Medications Dose Ordered Sig/Patricia Route Start Time Stop Time Status Last Admin Dose Admin Norepinephrine Bitartrate 250 ml @ 3.75 mls/hr Q24H IV 06/18/24 19:15 06/25/24 05:29 22.5 MLS/HR Fentanyl Citrate 250 ml @ 2.5 mls/hr Q24H IV 06/18/24 19:45 06/22/24 12:20 10 MLS/HR Ondansetron HCl 4 mg Q4HP PRN IV 06/18/24 19:45 06/23/24 05:58 4 MG Acetaminophen 650 mg Q6HP PRN GA 06/18/24 19:45 Midazolam HCl 50 ml @ 10 mls/hr Q5H IV 06/18/24 20:30 06/22/24 08:58 1 MLS/HR Nitroglycerin 0.4 mg Q5MINP PRN SL 06/18/24 20:45 Morphine Sulfate 2 mg Q30M PRN IV 06/18/24 20:45 Propofol 100 ml @ 5.443 mls/ hr [id number] IV 06/18/24 22:30 06/20/24 08:07 10.886 MLS/HR Amiodarone HCl 200 mg BID PO 06/20/24 10:00 06/25/24 09:50 200 MG Pantoprazole Sodium 40 mg BID IV 06/20/24 22:00 06/25/24 09:48 40 MG Multivitamins 1 tab DAILY GT 06/21/24 10:00 06/25/24 09:49 1 TAB Albuterol 2.5 mg Q6HR NEB 06/20/24 12:00 06/25/24 06:12 2.5 MG Ipratropium [place] 0.5 mg Q6HR NEB 06/20/24 12:00 06/25/24 06:12 0.5 MG Linezolid 300 ml @ 150 mls/hr Q12HR IV 06/21/24 10:00 06/25/24 09:58 150 MLS/HR Hydrocortisone Sodium Succinate 100 mg Q12HR IV 06/21/24 22:00 06/25/24 09:49 100 MG Vasopressin 20 units/Sodium Chloride 100 ml @ 9 mls/hr Q11H7M IV 06/21/24 17:00 Potassium Chloride 100 ml @ 50 mls/hr Q2H IV 06/22/24 09:00 06/22/24 12:59 Cancel Furosemide 40 mg DAILY IV 06/23/24 10:00 06/25/24 09:49 40 MG Amino Acids 0 ml @ 0 mls/hr PER PHARMACY IV 06/22/24 14:45 Enoxaparin Sodium 150 mg Q12HR SC 06/22/24 22:00 06/25/24 09:50 150 MG Diagnostic Test (Pha) 1 strip Q6HR 06/22/24 18:00 06/25/24 05:56 1 STRIP Insulin Human Regular FOLLOW SLIDING SCALE Q6HR SC 06/22/24 18:00 06/25/24 05:58 2 UNITS Dextrose 50 ml UD IV 06/22/24 16:30 Fat Emulsion Intravenous 50 ml/ Sodium Chloride 10 meq/Sodium Phosphate 10 meq/ Potassium Chloride 60 meq/ Potassium Phosphate 10 meq/ Magnesium Sulfate 16 meq/ Multivitamins 10 ml/Amino Acids/ Dextrose 1,101.2727 ml @ 45 mls/hr [id number] IV 06/24/24 22:00 06/25/24 21:59 06/24/24 22:10 45 MLS/HR Meropenem 50 ml @ 17 mls/hr Q8H IV 06/24/24 17:00 06/25/24 09:58 17 MLS/HR Laboratory Results Laboratory Tests 06/25/24 03:03 Chemistry Test 06/24/24 11:25 06/25/24 03:03 Magnesium Level 1.8 mg/dL (1.6-2.6) 2.0 mg/dL (1.6-2.6) Albumin 2.7 g/dL (3.2-4.8) L Calcium Level 8.2 mg/dL (8.7-10.4) L Phosphorus Level 3.2 mg/dL (2.4-5.1) Total Protein 5.2 g/dL (5.7-8.2) L LFT Test 06/25/24 03:03 Alanine Aminotransferase (ALT) 31 U/L (7-40) Alkaline Phosphatase 54 U/L (46-116) Aspartate Amino Transferase (AST) 80 U/L (13-40) H Direct Bilirubin 3.1 mg/dL (<0.3) H Total Bilirubin 4.7 mg/dL (0.2-1.0) H Urinalysis Test 06/18/24 22:11 06/22/24 12:41 Urine Color Yellow (Yellow) Urine Clarity Clear (Clear) Urine pH 6.5 (5.0-9.0) Urine Specific [place] 1.018 (1.001-1.035) Urine Protein 3+ (Negative) H Urine Ketones Negative (Negative) Urine Blood Negative /uL (Negative) Urine Nitrite Negative (Negative) Urine Bilirubin Negative (Negative) Urine Urobilinogen 4 mg/dL (Negative) H Urine Leukocyte Esterase Negative /uL (Negative) Urine RBC 6 /hpf (0 - 3) Urine Microscopic WBC 9 /HPF (0-3) H Urine Squamous Epithelial Cells Few /hpf (<5) Urine Bacteria Few /hpf (None Seen) H Urine Hyaline Casts Few /lpf (0 - 2) Urine Mucus Few (None Seen) Urine Glucose Normal mg/dL (Normal) Urine Creatinine 49.95 mg/dL (30.0-125.0) Urine Protein/Creatinine Ratio 0.52 Urine Sodium 38 mmol/L (40-220) L Urine Total Protein 25.9 mg/dL (1-14) H Blood Gas Results Test 06/25/24 06:55 Arterial Blood pH 7.474 (7.350-7.450) FiO2 % 45.0 Microbiology Microbiology Date/Time Source Procedure Growth Status 06/21/24 11:24 Blood Blood Culture - Preliminary NO GROWTH AFTER 72 HOURS OF INCUBATION. Resulted 06/19/24 00:02 Nose MRSA Screen - Final Complete 06/18/24 19:42 Sputum Gram Stain - Final Resulted 06/18/24 19:42 Sputum Respiratory Culture - Preliminary Resulted Labs and/or images reviewed: Labs reviewed by me, Image(s) reviewed by me Assessment/Plan Assessment/Plan Impression: -cardiopulmonary arrest at home -morbid obesity -alcoholism -acute hypoxic respiratory failure with mechanical ventilation -questionable acute seizure activity given cessation of alcohol four days prior -atrial fibrillation -metabolic encephalopathy -probable aspiration pneumonia Plan: -events: FiO2 45%. Sedation has been off for greater than [address] scan with diffuse cerebral edema. Long discussion made with patient's family who was bedside regarding poor prognosis and possible vegetative state. Also discussed that further prognosis should be discussed by Neurology. Noted bleeding from oral cavity as well as tracheal suctioning. Drop in hemoglobin. We will stop anticoagulation. Patient also noted to have resolution of leukocytosis with no growth on any cultures. We will deescalate antibiotics. -continue current ventilator settings, wean FiO2 to keep saturation greater than 92% -continue bronchodilators and Mucomyst -continue hydrocortisone 100 mg b.i.d. -deescalate antibiotic therapy to doxycycline and Rocephin. -potassium replacement -neurology consultation -repeat labs, chest x-ray, ABG in a.m. Critical care time spent with patient discussing and formulating plan of care: 90 minutes. This does not include time spent performing procedures. This medical document was created using an electronic medical record system with [employer] dictation system. Although this document has been carefully reviewed, there may still be some phonetic and typographical errors. These areas are purely typographical due to imperfections of the software programs, and do not reflect any compromise in the patient's medical care. Plan discussed with: Patient, Other (RN) My Orders Orders - GRETCHEN PEREZ NP Procedure Category Date Status Time Furosemide Injection PHA 06/26/24 Transmitted (Lasix Injection) 10:00 Ceftriaxone Ivpb PHA 06/26/24 Transmitted Rocephin 09:00 Doxycycline PHA 06/25/24 Transmitted 100mg/100ml 10:15 Basic Metabolic Panel LAB 06/26/24 Verified 04:00 Chest Portable XY 06/26/24 Transmitted 04:00 Complete Blood Count LAB 06/26/24 Verified 04:00 Date of Service: Jun 25, 2024 Billing Provider: GRETCHEN PEREZ NP Common Visit Codes: 80237-[id number] CARE 30-74 MIN, [id number] CARE-EACH +30MIN GRETCHEN PEREZ NP Jun 25, 2024 10:29
[2024-06-25] MEDS: DOXYCYCLINE 100MG/100ML 100 ML IV SCH (12:04)
--- NOTE | 2024-06-25 15:49 | DVHPN2 ---
Progress Note - Dictate Date Seen: Jun 25, 2024 Medical Necessity Reason Pt with a Central, PICC or Fol: No Subjective Mr. Pete is a 64 years old gentleman with a history of hypertension, heart disease, congestive heart failure, atrial fibrillation, morbid obesity, he was brought to the hospital on 06/18/2024 with a chief company of cardiopulmonary arrest. I have seen and examined the patient. He is not on sedation, but is on pressor drip, he is nonresponsive to strong painful stimuli I have had a meeting with the family, , son, daughters, and other family members, one daughter has micro background. I have updated them, discussed with them about the patient was severe brain damage secondary to hypoxia, and likely permanent vegetative status. The family understands, once more watchful waiting I have also discussed with his nurse Levo 18 mcg/min, vasopressin: 0.03 U Urinalysis, 06/18/2024: WBC: 9, urine leukocyte esterase: Negative UDS, 06/18/2024: Negative Plasma alcohol, 06/18/2024: <3 ABG 06/18/2024: Compensated respiratory acidosis 06/21/2024: Hypoxia, metabolic alkalosis WBC/HB/PLT/MCV, 06/20/2024: 11.1/12.6/109/89.1, 06/21/2024: 14.7/13.3/106/90.9 PT/INR/PTT, 06/22/2024: 13/1.25/139 BUN/CR, 06/20/2024: 38/2.04, 06/21/2024: 33/2.23 Troponin one high sensitivity, 06/18/2024: 61, 154, 585 TBI/AST/ALT/AP, 06/18/2024: 1.3/33/25/69, 06/21/2024: 3.6/78/30/70 ECG, 06/18/2024: Atrial flutter EEG, 06/21/2024: Remarkably abnormal EEG Echocardiogram, 06/20/2024: lvef 40-45% by visual estimate, optison used for LV opacification septal bowing and bounce noted severe RV enlargement and dysfunction noted moderate tricuspid regurg Chest x-ray, 06/18/24: 1. Endotracheal tube 1 cm above the sherri. 2. Cardiomegaly 3. Pulmonary vascular congestion bilaterally Chest x-ray, 06/19/2024: 1. The ETT is in satisfactory position. 2. CHF, small bilateral pleural effusions moderate bilateral lower lung zone pulmonary opacities may represent edema or pneumonia. Recommend clinical and biochemical correlation Chest x-ray, 06/21/2024: There is marked cardiomegaly. Mild pulmonary vascular congestion. No pneumothorax. Support lines and tubes are overpenetrated and difficult to assess. CT head, 06/18/2024: 1. No acute intracranial hemorrhage 2. No CT findings of territorial ischemia. 3. No CT findings of displaced skull fracture CT head, 06/24/2024: Harp-white differentiation is less appreciated with mild sulcal effacement as compared to prior examination. Findings may be on the basis of cerebral edema. Correlation with clinical symptoms and MRI is recommended. vital signs Vital Sign Date Time Temp Pulse Resp B/P (MAP) Pulse Ox O2 Delivery O2 Flow Rate FiO2 06/25/24 15:27 126 18 102/67 (79) 99 45 06/25/24 13:49 Mechanical Ventilator+ 06/25/24 09:15 98.5 98.5 Total Intake and Output 06/24/24 06/24/24 06/25/24 15:00 23:00 07:00 Intake Total 897.25 ml 583.50 ml 876.95 ml Output Total 1650 ml 425 ml Balance 897.25 ml -1066.50 ml 451.95 ml medications Current Medications Medications Dose Ordered Sig/Patricia Route Start Time Stop Time Status Last Admin Dose Admin Norepinephrine Bitartrate 250 ml @ 3.75 mls/hr Q24H IV 06/18/24 19:15 06/25/24 14:27 18.75 MLS/HR Fentanyl Citrate 250 ml @ 2.5 mls/hr Q24H IV 06/18/24 19:45 06/22/24 12:20 10 MLS/HR Ondansetron HCl 4 mg Q4HP PRN IV 06/18/24 19:45 06/23/24 05:58 4 MG Acetaminophen 650 mg Q6HP PRN CA 06/18/24 19:45 Midazolam HCl 50 ml @ 10 mls/hr Q5H IV 06/18/24 20:30 06/22/24 08:58 1 MLS/HR Nitroglycerin 0.4 mg Q5MINP PRN SL 06/18/24 20:45 Morphine Sulfate 2 mg Q30M PRN IV 06/18/24 20:45 Propofol 100 ml @ 5.443 mls/ hr [id number] IV 06/18/24 22:30 06/20/24 08:07 10.886 MLS/HR Amiodarone HCl 200 mg BID PO 06/20/24 10:00 06/25/24 09:50 200 MG Pantoprazole Sodium 40 mg BID IV 06/20/24 22:00 06/25/24 09:48 40 MG Multivitamins 1 tab DAILY GT 06/21/24 10:00 06/25/24 09:49 1 TAB Albuterol 2.5 mg Q6HR NEB 06/20/24 12:00 06/25/24 13:57 2.5 MG Ipratropium [place] 0.5 mg Q6HR NEB 06/20/24 12:00 06/25/24 13:58 0.5 MG Hydrocortisone Sodium Succinate 100 mg Q12HR IV 06/21/24 22:00 06/25/24 09:49 100 MG Vasopressin 20 units/Sodium Chloride 100 ml @ 9 mls/hr Q11H7M IV 06/21/24 17:00 06/25/24 12:42 9 MLS/HR Potassium Chloride 100 ml @ 50 mls/hr Q2H IV 06/22/24 09:00 06/22/24 12:59 Cancel Amino Acids 0 ml @ 0 mls/hr PER PHARMACY IV 06/22/24 14:45 Diagnostic Test (Pha) 1 strip Q6HR 06/22/24 18:00 06/25/24 12:04 1 STRIP Insulin Human Regular FOLLOW SLIDING SCALE Q6HR SC 06/22/24 18:00 06/25/24 12:04 2 UNITS Dextrose 50 ml UD IV 06/22/24 16:30 Fat Emulsion Intravenous 50 ml/ Sodium Chloride 10 meq/Sodium Phosphate 10 meq/ Potassium Chloride 60 meq/ Potassium Phosphate 10 meq/ Magnesium Sulfate 16 meq/ Multivitamins 10 ml/Amino Acids/ Dextrose 1,101.2727 ml @ 45 mls/hr [id number] IV 06/24/24 22:00 06/25/24 21:59 06/24/24 22:10 45 MLS/HR Furosemide 20 mg DAILY IV 06/26/24 10:00 Ceftriaxone Sodium 50 ml @ 100 mls/hr DAILY@09 IV 06/26/24 09:00 Doxycycline Hyclate 100 ml @ 50 mls/hr Q12H IV 06/25/24 10:15 06/25/24 12:04 50 MLS/HR Fat Emulsion Intravenous 50 ml/ Sodium Chloride 20 meq/Sodium Phosphate 20 meq/ Potassium Chloride 80 meq/ Calcium Gluconate 2.3 meq/Magnesium Sulfate 14 meq/ Multivitamins 10 ml/Chromium/ Copper/Manganese/ Zinc 1 ml/Amino Acids/Dextrose 1,319.4462 ml @ 55 mls/hr Q24H IV 06/25/24 22:00 06/26/24 21:59 objective The patient is well-nourished and well-developed with no distress. The patient is intubated MENTAL STATUS: Subjective CRANIAL NERVES: Pupils are equal, round and sluggishly reactive. There are corneal reflexes and doll's eyes phenomenon. No signs of facial weakness. There are gagging or coughing reflexes SENSATION: No responses to pain stimuli. MOTOR: Normal tone in the upper and lower extremity. Normal muscle bulk. No fasciculations. No spontaneous movement. REFLEXES: Deep tendon reflexes are symmetrical. No pathological reflexes. CEREBELLAR/COORDINATION: Deferred GAIT/STATION: deferred laboratory and microbiology Laboratory Tests 06/25/24 03:03 Test 06/25/24 03:03 Range/Units Serum Glucose 152 H 74-106 mg/dL Problem List Coma with diffuse brain edema on CT Hypoxic encephalopathy Metabolic encephalopathy Toxic encephalopathy Cardiopulmonary arrest Acute respiratory failure Morbid obesity Sleep-related breathing disorder Congestive heart failure AFib Congestive heart failure History of alcohol abuse Assessment/Plan Monitoring Supportive treatment Follow-up lab ICU care Stabilize vitals/pressor drip Respiratory support/vent management Oxygen IV antibiotics Lovenox 150 mg subQ q.12 hours Thiamine supplementation GI prophylaxis/pantoprazole TPN Cardiology on case More recommendation per clinical course Poor prognosis for meaningful recovery This medical document was created using an electronic medical record system with [employer] system. Although this document has been carefully reviewed, there may still be some phonetic and typographical errors. These areas are purely typographical due to imperfections of the software programs, and do not reflect any compromise in the patient's medical care. Prognosis guarded Dietary Evaluation Review Comments: 1) If patient remains NPO for more than 7 days, consider EN/TPN to meet at least 75% of estimated needs 2) If GI route is preferred, consider Jevity 1.2 @ goal rate of 60 mL/hr. Goal rate will provide 1728 kcals, 108g Pro, and 1162 mL free H2O per 24 hrs. TF regimen will meet ~ 80% daily esimated energy needs and exceed daily estinated protein needs 2) Advance patient diet when medically feasible to cardiac diet, pending CHIMNEY BUILDER BRICK approval 3) Collect HbA1c 4) Continue current plan of care Expected Outcomes/Goals: 1) patient to receive nutrition support within 7 days of NPO status 2) diet to advance 3) appetite and labs to improve 4) f/u in 3 days Plan discussed with: Spouse, Daughter, Son, Other Critical Care Time(min): 45 LOBO APARICIO MD Jun 25, 2024 15:49
--- NOTE | 2024-06-25 16:00 | DVHPN2 ---
Progress Note - Dictate Date Seen: Jun 25, 2024 Medical Necessity Reason Pt with a Central, PICC or Fol: No Subjective Clinically unchanged vital signs Vital Sign Date Time Temp Pulse Resp B/P (MAP) Pulse Ox O2 Delivery O2 Flow Rate FiO2 06/25/24 15:57 45 06/25/24 15:57 18 98 Mechanical Ventilator+ 06/25/24 15:57 121 06/25/24 15:27 102/67 (79) 06/25/24 09:15 98.5 98.5 Total Intake and Output 06/24/24 06/24/24 06/25/24 15:00 23:00 07:00 Intake Total 897.25 ml 583.50 ml 876.95 ml Output Total 1650 ml 425 ml Balance 897.25 ml -1066.50 ml 451.95 ml medications Current Medications Medications Dose Ordered Sig/Patricia Route Start Time Stop Time Status Last Admin Dose Admin Norepinephrine Bitartrate 250 ml @ 3.75 mls/hr Q24H IV 06/18/24 19:15 06/25/24 14:27 18.75 MLS/HR Fentanyl Citrate 250 ml @ 2.5 mls/hr Q24H IV 06/18/24 19:45 06/22/24 12:20 10 MLS/HR Ondansetron HCl 4 mg Q4HP PRN IV 06/18/24 19:45 06/23/24 05:58 4 MG Acetaminophen 650 mg Q6HP PRN DE 06/18/24 19:45 Midazolam HCl 50 ml @ 10 mls/hr Q5H IV 06/18/24 20:30 06/22/24 08:58 1 MLS/HR Nitroglycerin 0.4 mg Q5MINP PRN SL 06/18/24 20:45 Morphine Sulfate 2 mg Q30M PRN IV 06/18/24 20:45 Propofol 100 ml @ 5.443 mls/ hr [id number] IV 06/18/24 22:30 06/20/24 08:07 10.886 MLS/HR Amiodarone HCl 200 mg BID PO 06/20/24 10:00 06/25/24 09:50 200 MG Pantoprazole Sodium 40 mg BID IV 06/20/24 22:00 06/25/24 09:48 40 MG Multivitamins 1 tab DAILY GT 06/21/24 10:00 06/25/24 09:49 1 TAB Albuterol 2.5 mg Q6HR NEB 06/20/24 12:00 06/25/24 13:57 2.5 MG Ipratropium [place] 0.5 mg Q6HR NEB 06/20/24 12:00 06/25/24 13:58 0.5 MG Hydrocortisone Sodium Succinate 100 mg Q12HR IV 06/21/24 22:00 06/25/24 09:49 100 MG Vasopressin 20 units/Sodium Chloride 100 ml @ 9 mls/hr Q11H7M IV 06/21/24 17:00 06/25/24 12:42 9 MLS/HR Potassium Chloride 100 ml @ 50 mls/hr Q2H IV 06/22/24 09:00 06/22/24 12:59 Cancel Amino Acids 0 ml @ 0 mls/hr PER PHARMACY IV 06/22/24 14:45 Diagnostic Test (Pha) 1 strip Q6HR 06/22/24 18:00 06/25/24 12:04 1 STRIP Insulin Human Regular FOLLOW SLIDING SCALE Q6HR SC 06/22/24 18:00 06/25/24 12:04 2 UNITS Dextrose 50 ml UD IV 06/22/24 16:30 Fat Emulsion Intravenous 50 ml/ Sodium Chloride 10 meq/Sodium Phosphate 10 meq/ Potassium Chloride 60 meq/ Potassium Phosphate 10 meq/ Magnesium Sulfate 16 meq/ Multivitamins 10 ml/Amino Acids/ Dextrose 1,101.2727 ml @ 45 mls/hr [id number] IV 06/24/24 22:00 06/25/24 21:59 06/24/24 22:10 45 MLS/HR Furosemide 20 mg DAILY IV 06/26/24 10:00 Ceftriaxone Sodium 50 ml @ 100 mls/hr DAILY@09 IV 06/26/24 09:00 Doxycycline Hyclate 100 ml @ 50 mls/hr Q12H IV 06/25/24 10:15 06/25/24 12:04 50 MLS/HR Fat Emulsion Intravenous 50 ml/ Sodium Chloride 20 meq/Sodium Phosphate 20 meq/ Potassium Chloride 80 meq/ Calcium Gluconate 2.3 meq/Magnesium Sulfate 14 meq/ Multivitamins 10 ml/Chromium/ Copper/Manganese/ Zinc 1 ml/Amino Acids/Dextrose 1,319.4462 ml @ 55 mls/hr Q24H IV 06/25/24 22:00 06/26/24 21:59 objective Gen: nad, intubated heent: nc/at, mmm lungs: Occasional rhonchi cvs: no rub abd: soft, bowel sounds audible laboratory and microbiology Laboratory Tests 06/25/24 03:03 Test 06/25/24 03:03 Range/Units Serum Glucose 152 H 74-106 mg/dL Assessment/Plan Problem List/Assessment/Plan Acute kidney injury secondary to ischemic ATN - resolving Status post cardiopulmonary arrest Acute respiratory failure, patient intubated on ventilator NSTEMI Congestive heart failure exacerbation AFib with RVR Hyponatremia due to excess H2O Hypokalemia Hypomagnesemia Recommendations Metabolic parameters continue to remain acceptable Clinically stable from Nephrology perspective, no new recommendations I will sign off his case, please reconsult as needed. Thank you. Dietary Evaluation Review Comments: 1) If patient remains NPO for more than 7 days, consider EN/TPN to meet at least 75% of estimated needs 2) If GI route is preferred, consider Jevity 1.2 @ goal rate of 60 mL/hr. Goal rate will provide 1728 kcals, 108g Pro, and 1162 mL free H2O per 24 hrs. TF regimen will meet ~ 80% daily esimated energy needs and exceed daily estinated protein needs 2) Advance patient diet when medically feasible to cardiac diet, pending HOTEL ENGINEER approval 3) Collect HbA1c 4) Continue current plan of care Expected Outcomes/Goals: 1) patient to receive nutrition support within 7 days of NPO status 2) diet to advance 3) appetite and labs to improve 4) f/u in 3 days Plan discussed with: BRIAN Willams MD Jun 25, 2024 16:00
--- NOTE | 2024-06-25 16:06 | DVHPN2 ---
Progress Note - Dictate Date Seen: Jun 25, 2024 Medical Necessity Reason Pt with a Central, PICC or Fol: Yes The following are medically ne: Central Line Subjective *Legal Support Manager rounds* Patient seen and examined Overnight events reviewed vital signs Vital Sign Date Time Temp Pulse Resp B/P (MAP) Pulse Ox O2 Delivery O2 Flow Rate FiO2 06/25/24 15:57 45 06/25/24 15:57 18 98 Mechanical Ventilator+ 06/25/24 15:57 121 06/25/24 15:27 102/67 (79) 06/25/24 09:15 98.5 98.5 Total Intake and Output 06/24/24 06/24/24 06/25/24 15:00 23:00 07:00 Intake Total 897.25 ml 583.50 ml 876.95 ml Output Total 1650 ml 425 ml Balance 897.25 ml -1066.50 ml 451.95 ml medications Current Medications Medications Dose Ordered Sig/Patricia Route Start Time Stop Time Status Last Admin Dose Admin Norepinephrine Bitartrate 250 ml @ 3.75 mls/hr Q24H IV 06/18/24 19:15 06/25/24 14:27 18.75 MLS/HR Fentanyl Citrate 250 ml @ 2.5 mls/hr Q24H IV 06/18/24 19:45 06/22/24 12:20 10 MLS/HR Ondansetron HCl 4 mg Q4HP PRN IV 06/18/24 19:45 06/23/24 05:58 4 MG Acetaminophen 650 mg Q6HP PRN [place] 06/18/24 19:45 Midazolam HCl 50 ml @ 10 mls/hr Q5H IV 06/18/24 20:30 06/22/24 08:58 1 MLS/HR Nitroglycerin 0.4 mg Q5MINP PRN SL 06/18/24 20:45 Morphine Sulfate 2 mg Q30M PRN IV 06/18/24 20:45 Propofol 100 ml @ 5.443 mls/ hr [id number] IV 06/18/24 22:30 06/20/24 08:07 10.886 MLS/HR Amiodarone HCl 200 mg BID PO 06/20/24 10:00 06/25/24 09:50 200 MG Pantoprazole Sodium 40 mg BID IV 06/20/24 22:00 06/25/24 09:48 40 MG Multivitamins 1 tab DAILY GT 06/21/24 10:00 06/25/24 09:49 1 TAB Albuterol 2.5 mg Q6HR NEB 06/20/24 12:00 06/25/24 13:57 2.5 MG Ipratropium [place] 0.5 mg Q6HR NEB 06/20/24 12:00 06/25/24 13:58 0.5 MG Hydrocortisone Sodium Succinate 100 mg Q12HR IV 06/21/24 22:00 06/25/24 09:49 100 MG Vasopressin 20 units/Sodium Chloride 100 ml @ 9 mls/hr Q11H7M IV 06/21/24 17:00 06/25/24 12:42 9 MLS/HR Potassium Chloride 100 ml @ 50 mls/hr Q2H IV 06/22/24 09:00 06/22/24 12:59 Cancel Amino Acids 0 ml @ 0 mls/hr PER PHARMACY IV 06/22/24 14:45 Diagnostic Test (Pha) 1 strip Q6HR 06/22/24 18:00 06/25/24 12:04 1 STRIP Insulin Human Regular FOLLOW SLIDING SCALE Q6HR SC 06/22/24 18:00 06/25/24 12:04 2 UNITS Dextrose 50 ml UD IV 06/22/24 16:30 Fat Emulsion Intravenous 50 ml/ Sodium Chloride 10 meq/Sodium Phosphate 10 meq/ Potassium Chloride 60 meq/ Potassium Phosphate 10 meq/ Magnesium Sulfate 16 meq/ Multivitamins 10 ml/Amino Acids/ Dextrose 1,101.2727 ml @ 45 mls/hr [id number] IV 06/24/24 22:00 06/25/24 21:59 06/24/24 22:10 45 MLS/HR Furosemide 20 mg DAILY IV 06/26/24 10:00 Ceftriaxone Sodium 50 ml @ 100 mls/hr DAILY@09 IV 06/26/24 09:00 Doxycycline Hyclate 100 ml @ 50 mls/hr Q12H IV 06/25/24 10:15 06/25/24 12:04 50 MLS/HR Fat Emulsion Intravenous 50 ml/ Sodium Chloride 20 meq/Sodium Phosphate 20 meq/ Potassium Chloride 80 meq/ Calcium Gluconate 2.3 meq/Magnesium Sulfate 14 meq/ Multivitamins 10 ml/Chromium/ Copper/Manganese/ Zinc 1 ml/Amino Acids/Dextrose 1,319.4462 ml @ 55 mls/hr Q24H IV 06/25/24 22:00 06/26/24 21:59 laboratory and microbiology Laboratory Tests 06/25/24 03:03 Test 06/25/24 03:03 Range/Units Serum Glucose 152 H 74-106 mg/dL Assessment/Plan Impression Acute hypoxemic respiratory failure S/p cardiac arrest Acute kidney injury Morbid obesity CVA Patient seen and examined in ICU Events On mechanical ventilation S/p intubation PEEP 10, FiO2 45% Off sedation x3 days No meaningful responses Concern raised for anoxic brain injury Labs and imaging reviewed ABG reviewed pH 7.47, pCo2 46, pO2 76 Management Vent support Titrate to maintain sats 90% or above Sedation for vent synchrony Antibiotics Bronchodilators Monitor renal function Monitor electrolytes Supplement as needed Pressors as needed for hemodynamic support To maintain a mean arterial pressure of 65 mmHg Prognosis poor Family aware DVT prophylaxis Critical care time 35 minutes Dietary Evaluation Review Comments: 1) If patient remains NPO for more than 7 days, consider EN/TPN to meet at least 75% of estimated needs 2) If GI route is preferred, consider Jevity 1.2 @ goal rate of 60 mL/hr. Goal rate will provide 1728 kcals, 108g Pro, and 1162 mL free H2O per 24 hrs. TF regimen will meet ~ 80% daily esimated energy needs and exceed daily estinated protein needs 2) Advance patient diet when medically feasible to cardiac diet, pending TAVERN KEEPER approval 3) Collect HbA1c 4) Continue current plan of care Expected Outcomes/Goals: 1) patient to receive nutrition support within 7 days of NPO status 2) diet to advance 3) appetite and labs to improve 4) f/u in 3 days Plan discussed with: Other (Rn) SIN KOENIG MD Jun 25, 2024 16:06
[2024-06-25] MEDS: TPN PER PHARMACY IV NR (22:19)
[2024-06-26] VITALS (73 sets, daily range): BP systolic 81–118; BP diastolic 38–68; PULSE 38–147; RESP 0–27; TEMP 98.5–99.4; O2SAT 86–100
[2024-06-26] MEDS: PHENYLEPHRINE IV 250 ML IV SCH (00:03)
[2024-06-26] MEDS: DIGOXIN (250MCG/ML) 2 ML AMPULE IV ONE (00:03)
[2024-06-26 01:20] LABS: Potassium 4.3 mmol/L (3.5-5.1)
[2024-06-26 01:27] LABS: Magnesium 2.1 mg/dL (1.6-2.6)
[2024-06-26] MEDS: AMIODARONE 360mg/200mL PREMIX 200 ML IV ONE (01:39)
[2024-06-26 03:42] LABS: Basophils # (auto) 0 10 ^3/uL (0-0.2); Eosinophils # (auto) 0 10 ^3/uL (0-0.8); Monocytes # (auto) 1.5 10 ^3/uL (0-1.3); Nucleated Red Blood Cells % 0.1 %; White Blood Cell 12.6 10^3/uL (4.4-10.8)
[2024-06-26 03:45] LABS: Basophils % (auto) 0.1 % (0.0-2.0); Eosinophils % (auto) 0.1 % (0.0-7.0); Hematocrit 18.3 % (41.0-53.0); Lymphocytes # (auto) 0.7 10 ^3/uL (0.4-5.4); Lymphocytes % (auto) 5.9 % (10.0-50.0); Mean Corpuscular Hemoglobin 30.6 pg (28.0-32.0); Mean Corpuscular Volume 89.8 fL (80.0-100.0); Monocytes % (auto) 12.2 % (0.0-12.0); Neutrophils # (auto) 10.3 10 ^3/uL (1.6-8.6); Neutrophils % (auto) 81.7 % (37.0-80.0); Platelet Count (auto) 132 10^3/uL (140-450); Red Blood Cells 2.04 10^6/uL (4.5-5.90); Red Cell Distribution Width 14.2 % (11.8-14.3)
[2024-06-26 04:08] LABS: Alkaline Phosphatase 54 U/L (46-116); Anion Gap 5 (5-15); Chloride 99 mmol/L (98-107); Magnesium 2.2 mg/dL (1.6-2.6); Potassium 4.4 mmol/L (3.5-5.1); Sodium 137 mmol/L (136-145)
[2024-06-26 04:09] LABS: Alanine Aminotransferase 47 U/L (7-40); Albumin 2.5 g/dL (3.2-4.8); Aspartate Aminotransferase 90 U/L (13-40); Bilirubin, Total 4.8 mg/dL (0.2-1.0); Blood Urea Nitrogen 70 mg/dL (9-23); Calcium 7.8 mg/dL (8.7-10.4); Carbon Dioxide 33 mmol/L (20-31); Glucose 167 mg/dL (74-106); Total Protein 4.8 g/dL (5.7-8.2)
[2024-06-26 04:38] LABS: Hemoglobin 6.2 g/dL (13.5-17.5)
[2024-06-26] MEDS: CALCIUM GLUC 1,000mg/50ml-NS 50 ML IV ONE (05:58)
--- NOTE | 2024-06-26 06:03 | DVH ---
CHEST RADIOGRAPH Indication: pna Technique: Single frontal view of the chest was obtained Comparison: XY CHEST XRAY 1 VIEW on DOS: 06/25/24, XY CHEST XRAY 1 VIEW on DOS: 06/24/24, XY CHEST XRAY 1 VIEW on DOS: 06/23/24 IMPRESSION: Heart appears prominent in size. There is moderate pulmonary vascular congestion with bilateral pleur al effusions. Endotracheal tube appears satisfactory position. Enteric tube tip is in the mid esoph blue, advancement of approximately 25 cm is recommended. Critical Result: line placement Findings discussed with Ana HIDALGO at 06/26/2024 08:58 AM, and acknowledged receipt and understandin g of the findings. ..
[2024-06-26] MEDS: AMIODARONE 360mg/200mL PREMIX 200 ML IV SCH (06:54)
--- NOTE | 2024-06-26 07:11 | DVHPN2 ---
Subjective Patient unresponsive Reviewed: Care Plan, H&P, Labs, Previous Orders Changes from previous H/P or p: No Changes General: Per HPI Eyes: No Pain, No Vision change, No Conjunctivae inflammation, No Eyelid inflammation, No Other, No Redness ENT: No Ear pain, No Ear discharge, No Nose pain, No Nose discharge, No Nose congestion, No Mouth pain, No Mouth swelling, No Throat pain, No Throat swelling, No Other Cardiovascular: No Chest Pain, No Palpitations, No Orthopnea, No Paroxysmal Noc. Dyspnea, No Edema, No Lt Headedness, No Other Respiratory: No Cough, No Dry, No Shortness of breath, No SOB with excertion, No Wheezing, No Hemoptysis, No Pleuritic Pain, No Sputum, No Other Gastrointestinal: No Nausea, No Vomiting, No Abdominal Pain, No Diarrhea, No Constipation, No Melena, No Hematochezia, No Other Genitourinary: No Dysuria, No Frequency, No Incontinence, No Hematuria, No Retention, No Other Musculoskeletal: No other, No neck pain, No shoulder pain, No arm pain, No back pain, No hand pain, No leg pain, No foot pain Skin: No Rash, No Lesions, No Jaundice, No Bruising, No Other Objective Vitals Vital Signs Date Time Temp Pulse Resp B/P (MAP) Pulse Ox O2 Delivery O2 Flow Rate FiO2 06/26/24 06:45 113 18 112/48 (69) 100 06/26/24 06:00 Mechanical Ventilator+ 70 70 06/26/24 04:00 99.2 99.2 Intake/Output Intake and Output 06/26/24 07:00 Intake Total 2545.82 ml Output Total 350 ml Balance 2195.82 ml Intake Oral 50 ml IV Total 2495.82 ml Output Urine Total 300 ml Emesis 50 ml General Appearance: severe distress, Other (Patient intubated sedation off.) HEENT: Atraumatic, Other (Pupils unequal now. Nonresponsive.) Lungs: Clear to auscultation, Normal air movement (Decreased breath sounds at bases), Other (Mechanical ventilation) Cardiovascular: Normal S1, Normal S2, Other (Atrial fibrillation) Abdomen: Normal bowel sounds, Soft, No tenderness, No hepatospenomegaly Genitourinary: No Apparent Abnormalities (Wick catheter) Musculoskeletal: Other (Unable to assess) Extremities: No clubbing, No cyanosis Neuro: Other (Sedation is off. Pupils nonreactive. Positive gag and cough. Cranial nerves not intact.) Skin: Dry, Intact, Warm Psych/Mental Status: Other (No motor movement. Unable to assess.) Medications Current Medications Medications Dose Ordered Sig/Patricia Route Start Time Stop Time Status Last Admin Dose Admin Norepinephrine Bitartrate 250 ml @ 3.75 mls/hr Q24H IV 06/18/24 19:15 06/26/24 04:39 45 MLS/HR Fentanyl Citrate 250 ml @ 2.5 mls/hr Q24H IV 06/18/24 19:45 06/22/24 12:20 10 MLS/HR Ondansetron HCl 4 mg Q4HP PRN IV 06/18/24 19:45 06/23/24 05:58 4 MG Acetaminophen 650 mg Q6HP PRN MT 06/18/24 19:45 Midazolam HCl 50 ml @ 10 mls/hr Q5H IV 06/18/24 20:30 06/22/24 08:58 1 MLS/HR Nitroglycerin 0.4 mg Q5MINP PRN SL 06/18/24 20:45 Morphine Sulfate 2 mg Q30M PRN IV 06/18/24 20:45 Propofol 100 ml @ 5.443 mls/ hr [id number] IV 06/18/24 22:30 06/20/24 08:07 10.886 MLS/HR Amiodarone HCl 200 mg BID PO 06/20/24 10:00 06/25/24 22:19 200 MG Pantoprazole Sodium 40 mg BID IV 06/20/24 22:00 06/25/24 22:20 40 MG Multivitamins 1 tab DAILY GT 06/21/24 10:00 06/25/24 09:49 1 TAB Albuterol 2.5 mg Q6HR NEB 06/20/24 12:00 06/25/24 18:12 2.5 MG Ipratropium [place] 0.5 mg Q6HR NEB 06/20/24 12:00 06/26/24 07:00 0.5 MG Hydrocortisone Sodium Succinate 100 mg Q12HR IV 06/21/24 22:00 06/25/24 22:20 100 MG Vasopressin 20 units/Sodium Chloride 100 ml @ 9 mls/hr Q11H7M IV 06/21/24 17:00 06/25/24 21:29 9 MLS/HR Potassium Chloride 100 ml @ 50 mls/hr Q2H IV 06/22/24 09:00 06/22/24 12:59 Cancel Amino Acids 0 ml @ 0 mls/hr PER PHARMACY IV 06/22/24 14:45 Diagnostic Test (Pha) 1 strip Q6HR 06/22/24 18:00 06/26/24 05:47 1 STRIP Insulin Human Regular FOLLOW SLIDING SCALE Q6HR SC 06/22/24 18:00 06/26/24 05:50 2 UNITS Dextrose 50 ml UD IV 06/22/24 16:30 Furosemide 20 mg DAILY IV 06/26/24 10:00 Ceftriaxone Sodium 50 ml @ 100 mls/hr DAILY@09 IV 06/26/24 09:00 Doxycycline Hyclate 100 ml @ 50 mls/hr Q12H IV 06/25/24 10:15 06/25/24 22:19 50 MLS/HR Fat Emulsion Intravenous 50 ml/ Sodium Chloride 20 meq/Sodium Phosphate 20 meq/ Potassium Chloride 80 meq/ Calcium Gluconate 2.3 meq/Magnesium Sulfate 14 meq/ Multivitamins 10 ml/Chromium/ Copper/Manganese/ Zinc 1 ml/Amino Acids/Dextrose 1,319.4462 ml @ 55 mls/hr Q24H IV 06/25/24 22:00 06/26/24 21:59 06/25/24 22:19 55 MLS/HR Phenylephrine HCl 250 ml @ 30 mls/hr Q8H20M IV 06/25/24 23:30 06/26/24 05:58 48.75 MLS/HR Laboratory Results Laboratory Tests 06/26/24 03:00 Chemistry Test 06/26/24 01:00 06/26/24 03:00 Magnesium Level 2.1 mg/dL (1.6-2.6) 2.2 mg/dL (1.6-2.6) Albumin 2.5 g/dL (3.2-4.8) L Calcium Level 7.8 mg/dL (8.7-10.4) L Phosphorus Level 4.0 mg/dL (2.4-5.1) Total Protein 4.8 g/dL (5.7-8.2) L LFT Test 06/26/24 03:00 Alanine Aminotransferase (ALT) 47 U/L (7-40) H Alkaline Phosphatase 54 U/L (46-116) Aspartate Amino Transferase (AST) 90 U/L (13-40) H Total Bilirubin 4.8 mg/dL (0.2-1.0) H Urinalysis Test 06/18/24 22:11 06/22/24 12:41 Urine Color Yellow (Yellow) Urine Clarity Clear (Clear) Urine pH 6.5 (5.0-9.0) Urine Specific [place] 1.018 (1.001-1.035) Urine Protein 3+ (Negative) H Urine Ketones Negative (Negative) Urine Blood Negative /uL (Negative) Urine Nitrite Negative (Negative) Urine Bilirubin Negative (Negative) Urine Urobilinogen 4 mg/dL (Negative) H Urine Leukocyte Esterase Negative /uL (Negative) Urine RBC 6 /hpf (0 - 3) Urine Microscopic WBC 9 /HPF (0-3) H Urine Squamous Epithelial Cells Few /hpf (<5) Urine Bacteria Few /hpf (None Seen) H Urine Hyaline Casts Few /lpf (0 - 2) Urine Mucus Few (None Seen) Urine Glucose Normal mg/dL (Normal) Urine Creatinine 49.95 mg/dL (30.0-125.0) Urine Protein/Creatinine Ratio 0.52 Urine Sodium 38 mmol/L (40-220) L Urine Total Protein 25.9 mg/dL (1-14) H Blood Gas Results Test 06/26/24 05:45 Arterial Blood pH 7.457 (7.350-7.450) FiO2 % 70.0 Microbiology Microbiology Date/Time Source Procedure Growth Status 06/21/24 11:24 Blood Blood Culture - Preliminary NO GROWTH AFTER 72 HOURS OF INCUBATION. Resulted 06/19/24 00:02 Nose MRSA Screen - Final Complete 06/18/24 19:42 Sputum Gram Stain - Final Resulted 06/18/24 19:42 Sputum Respiratory Culture - Preliminary Resulted Labs and/or images reviewed: Labs reviewed by me, Image(s) reviewed by me Assessment/Plan Assessment/Plan Impression: -cardiopulmonary arrest at home -morbid obesity -alcoholism -acute hypoxic respiratory failure with mechanical ventilation -questionable acute seizure activity given cessation of alcohol four days prior -atrial fibrillation -metabolic encephalopathy -probable aspiration pneumonia -Anemia Plan: -events: Hypotensive. IVORY worsening from hemodynamics. Now on multiple pressors. Anemia-Lovenox stopped yesterday am. PRBC transfusion -continue current ventilator settings, wean FiO2 to keep saturation greater than 92% -continue bronchodilators and Mucomyst -continue hydrocortisone 100 mg b.i.d. -deescalate antibiotic therapy to doxycycline and Rocephin. -potassium replacement -neurology consultation -repeat labs, chest x-ray, ABG in a.m. Critical care time spent with patient discussing and formulating plan of care: 40 minutes. This does not include time spent performing procedures. Poor prognosis as discussed with family by myself and neurology. This medical document was created using an electronic medical record system with [employer] dictation system. Although this document has been carefully reviewed, there may still be some phonetic and typographical errors. These areas are purely typographical due to imperfections of the software programs, and do not reflect any compromise in the patient's medical care. Plan discussed with: Patient, Other (Rn) My Orders Orders - GRETCHEN PEREZ NP Procedure Category Date Status Time Furosemide Injection PHA 06/26/24 In Process (Lasix Injection) 10:00 Ceftriaxone 1gm/50ml PHA 06/26/24 In Process D5w (Rocephin) 09:00 Doxycycline PHA 06/25/24 In Process 100mg/100ml 10:15 Chest Portable XY 06/26/24 Resulted 04:00 Amino Acid PHA 06/25/24 In Process Infusion... W/Fat 22:00 Tpn Per Pharmacy MITCH 06/25/24 In Process 22:00 Abg W/ Co-Ox RT 06/26/24 Logged 05:50 Date of Service: Jun 26, 2024 Billing Provider: GRETCHEN PEREZ NP Common Visit Codes: [id number] CARE 30-74 MIN GRETCHEN PEREZ NP Jun 26, 2024 07:11
[2024-06-26] MEDS: cefTRIAXone 1GM/50ML D5W 50 ML IV SCH (08:01)
[2024-06-26] MEDS: FUROSEMIDE 40 MG/4 ML VIAL IV SCH (08:02)
--- NOTE | 2024-06-26 10:24 | DVHPN2 ---
Progress Note - Dictate Date Seen: Jun 26, 2024 Medical Necessity Reason Pt with a Central, PICC or Fol: Yes The following are medically ne: Central Line Subjective Patient's daughter and at bedside vital signs Vital Sign Date Time Temp Pulse Resp B/P (MAP) Pulse Ox O2 Delivery O2 Flow Rate FiO2 06/26/24 10:12 98.6 109 16 85/53 98.6 06/26/24 09:50 100 Mechanical Ventilator+ 70 70 Total Intake and Output 06/25/24 06/25/24 06/26/24 15:00 23:00 07:00 Intake Total 570.75 ml 626.30 ml 1348.77 ml Output Total 150 ml 200 ml Balance 570.75 ml 476.30 ml 1148.77 ml medications Current Medications Medications Dose Ordered Sig/Patricia Route Start Time Stop Time Status Last Admin Dose Admin Norepinephrine Bitartrate 250 ml @ 3.75 mls/hr Q24H IV 06/18/24 19:15 06/26/24 04:39 45 MLS/HR Fentanyl Citrate 250 ml @ 2.5 mls/hr Q24H IV 06/18/24 19:45 06/22/24 12:20 10 MLS/HR Ondansetron HCl 4 mg Q4HP PRN IV 06/18/24 19:45 06/23/24 05:58 4 MG Acetaminophen 650 mg Q6HP PRN [place] 06/18/24 19:45 Midazolam HCl 50 ml @ 10 mls/hr Q5H IV 06/18/24 20:30 06/22/24 08:58 1 MLS/HR Nitroglycerin 0.4 mg Q5MINP PRN SL 06/18/24 20:45 Morphine Sulfate 2 mg Q30M PRN IV 06/18/24 20:45 Propofol 100 ml @ 5.443 mls/ hr [id number] IV 06/18/24 22:30 06/20/24 08:07 10.886 MLS/HR Pantoprazole Sodium 40 mg BID IV 06/20/24 22:00 06/26/24 08:02 40 MG Multivitamins 1 tab DAILY GT 06/21/24 10:00 06/26/24 08:02 1 TAB Albuterol 2.5 mg Q6HR NEB 06/20/24 12:00 06/25/24 18:12 2.5 MG Ipratropium [place] 0.5 mg Q6HR NEB 06/20/24 12:00 06/26/24 07:00 0.5 MG Hydrocortisone Sodium Succinate 100 mg Q12HR IV 06/21/24 22:00 06/26/24 08:02 100 MG Vasopressin 20 units/Sodium Chloride 100 ml @ 9 mls/hr Q11H7M IV 06/21/24 17:00 06/26/24 08:01 9 MLS/HR Potassium Chloride 100 ml @ 50 mls/hr Q2H IV 06/22/24 09:00 06/22/24 12:59 Cancel Amino Acids 0 ml @ 0 mls/hr PER PHARMACY IV 06/22/24 14:45 Diagnostic Test (Pha) 1 strip Q6HR 06/22/24 18:00 06/26/24 05:47 1 STRIP Insulin Human Regular FOLLOW SLIDING SCALE Q6HR SC 06/22/24 18:00 06/26/24 05:50 2 UNITS Dextrose 50 ml UD IV 06/22/24 16:30 Furosemide 20 mg DAILY IV 06/26/24 10:00 06/26/24 08:02 20 MG Ceftriaxone Sodium 50 ml @ 100 mls/hr DAILY@09 IV 06/26/24 09:00 06/26/24 08:01 100 MLS/HR Doxycycline Hyclate 100 ml @ 50 mls/hr Q12H IV 06/25/24 10:15 06/26/24 08:03 50 MLS/HR Fat Emulsion Intravenous 50 ml/ Sodium Chloride 20 meq/Sodium Phosphate 20 meq/ Potassium Chloride 80 meq/ Calcium Gluconate 2.3 meq/Magnesium Sulfate 14 meq/ Multivitamins 10 ml/Chromium/ Copper/Manganese/ Zinc 1 ml/Amino Acids/Dextrose 1,319.4462 ml @ 55 mls/hr Q24H IV 06/25/24 22:00 06/26/24 21:59 06/25/24 22:19 55 MLS/HR Phenylephrine HCl 250 ml @ 30 mls/hr Q8H20M IV 06/25/24 23:30 06/26/24 05:58 48.75 MLS/HR objective Gen: nad, intubated heent: nc/at, mmm lungs: Occasional rhonchi cvs: no rub abd: soft, bowel sounds audible laboratory and microbiology Laboratory Tests 06/26/24 03:00 Test 06/26/24 03:00 Range/Units Serum Glucose 167 H 74-106 mg/dL Assessment/Plan Problem List/Assessment/Plan Acute kidney injury secondary to ischemic ATN - resolving Status post cardiopulmonary arrest Acute respiratory failure, patient intubated on ventilator NSTEMI Congestive heart failure exacerbation AFib with RVR Hyponatremia due to excess H2O Hypokalemia Hypomagnesemia Recommendations Slight up trend to serum creatinine, Noted plans for compassionate extubation Conservative management of IVORY sequelae No new recommendations I will sign off his case. Discussed with the patient's family. Dietary Evaluation Review Comments: 1) If patient remains NPO for more than 7 days, consider EN/TPN to meet at least 75% of estimated needs 2) If GI route is preferred, consider Jevity 1.2 @ goal rate of 60 mL/hr. Goal rate will provide 1728 kcals, 108g Pro, and 1162 mL free H2O per 24 hrs. TF regimen will meet ~ 80% daily esimated energy needs and exceed daily estinated protein needs 2) Advance patient diet when medically feasible to cardiac diet, pending DEVELOPMENT ADVISOR approval 3) Collect HbA1c 4) Continue current plan of care Expected Outcomes/Goals: 1) patient to receive nutrition support within 7 days of NPO status 2) diet to advance 3) appetite and labs to improve 4) f/u in 3 days Plan discussed with: Daughter BRIAN SUAREZ MD Jun 26, 2024 10:24
--- NOTE | 2024-06-26 10:56 | DVHPN2 ---
Progress Note - Dictate Date Seen: Jun 26, 2024 Medical Necessity Reason Pt with a Central, PICC or Fol: Yes The following are medically ne: Central Line Subjective *Site Leader rounds* Patient seen and examined Overnight events reviewed vital signs Vital Sign Date Time Temp Pulse Resp B/P (MAP) Pulse Ox O2 Delivery O2 Flow Rate FiO2 06/26/24 10:53 100/56 06/26/24 10:30 98.5 106 18 98.5 06/26/24 09:50 100 Mechanical Ventilator+ 70 70 Total Intake and Output 06/25/24 06/25/24 06/26/24 15:00 23:00 07:00 Intake Total 570.75 ml 626.30 ml 1348.77 ml Output Total 150 ml 200 ml Balance 570.75 ml 476.30 ml 1148.77 ml medications Current Medications Medications Dose Ordered Sig/Patricia Route Start Time Stop Time Status Last Admin Dose Admin Norepinephrine Bitartrate 250 ml @ 3.75 mls/hr Q24H IV 06/18/24 19:15 06/26/24 10:53 37.5 MLS/HR Fentanyl Citrate 250 ml @ 2.5 mls/hr Q24H IV 06/18/24 19:45 06/22/24 12:20 10 MLS/HR Ondansetron HCl 4 mg Q4HP PRN IV 06/18/24 19:45 06/23/24 05:58 4 MG Acetaminophen 650 mg Q6HP PRN [place] 06/18/24 19:45 Midazolam HCl 50 ml @ 10 mls/hr Q5H IV 06/18/24 20:30 06/22/24 08:58 1 MLS/HR Nitroglycerin 0.4 mg Q5MINP PRN SL 06/18/24 20:45 Morphine Sulfate 2 mg Q30M PRN IV 06/18/24 20:45 Propofol 100 ml @ 5.443 mls/ hr [id number] IV 06/18/24 22:30 06/20/24 08:07 10.886 MLS/HR Pantoprazole Sodium 40 mg BID IV 06/20/24 22:00 06/26/24 08:02 40 MG Multivitamins 1 tab DAILY GT 06/21/24 10:00 06/26/24 08:02 1 TAB Albuterol 2.5 mg Q6HR NEB 06/20/24 12:00 06/25/24 18:12 2.5 MG Ipratropium [place] 0.5 mg Q6HR NEB 06/20/24 12:00 06/26/24 07:00 0.5 MG Hydrocortisone Sodium Succinate 100 mg Q12HR IV 06/21/24 22:00 06/26/24 08:02 100 MG Vasopressin 20 units/Sodium Chloride 100 ml @ 9 mls/hr Q11H7M IV 06/21/24 17:00 06/26/24 08:01 9 MLS/HR Potassium Chloride 100 ml @ 50 mls/hr Q2H IV 06/22/24 09:00 06/22/24 12:59 Cancel Amino Acids 0 ml @ 0 mls/hr PER PHARMACY IV 06/22/24 14:45 Diagnostic Test (Pha) 1 strip Q6HR 06/22/24 18:00 06/26/24 05:47 1 STRIP Insulin Human Regular FOLLOW SLIDING SCALE Q6HR SC 06/22/24 18:00 06/26/24 05:50 2 UNITS Dextrose 50 ml UD IV 06/22/24 16:30 Furosemide 20 mg DAILY IV 06/26/24 10:00 06/26/24 08:02 20 MG Ceftriaxone Sodium 50 ml @ 100 mls/hr DAILY@09 IV 06/26/24 09:00 06/26/24 08:01 100 MLS/HR Doxycycline Hyclate 100 ml @ 50 mls/hr Q12H IV 06/25/24 10:15 06/26/24 08:03 50 MLS/HR Fat Emulsion Intravenous 50 ml/ Sodium Chloride 20 meq/Sodium Phosphate 20 meq/ Potassium Chloride 80 meq/ Calcium Gluconate 2.3 meq/Magnesium Sulfate 14 meq/ Multivitamins 10 ml/Chromium/ Copper/Manganese/ Zinc 1 ml/Amino Acids/Dextrose 1,319.4462 ml @ 55 mls/hr Q24H IV 06/25/24 22:00 06/26/24 21:59 06/25/24 22:19 55 MLS/HR Phenylephrine HCl 250 ml @ 30 mls/hr Q8H20M IV 06/25/24 23:30 06/26/24 05:58 48.75 MLS/HR laboratory and microbiology Laboratory Tests 06/26/24 03:00 Test 06/26/24 03:00 Range/Units Serum Glucose 167 H 74-106 mg/dL Assessment/Plan Impression Acute hypoxemic respiratory failure S/p cardiac arrest Acute kidney injury Morbid obesity CVA Patient seen and examined in ICU Events On mechanical ventilation S/p intubation PEEP 10, FiO2 45% Off sedation x3 days No meaningful responses Concern raised for anoxic brain injury with family Labs and imaging reviewed ABG reviewed Management Vent support Titrate to maintain sats 90% or above Sedation for vent synchrony Antibiotics Bronchodilators Monitor renal function Monitor electrolytes Supplement as needed Pressors as needed for hemodynamic support To maintain a mean arterial pressure of 65 mmHg Prognosis poor Family aware DVT prophylaxis Critical care time 35 minutes Dietary Evaluation Review Comments: 1) If patient remains NPO for more than 7 days, consider EN/TPN to meet at least 75% of estimated needs 2) If GI route is preferred, consider Jevity 1.2 @ goal rate of 60 mL/hr. Goal rate will provide 1728 kcals, 108g Pro, and 1162 mL free H2O per 24 hrs. TF regimen will meet ~ 80% daily esimated energy needs and exceed daily estinated protein needs 2) Advance patient diet when medically feasible to cardiac diet, pending COMMUNICATIONS MAINTAINER approval 3) Collect HbA1c 4) Continue current plan of care Expected Outcomes/Goals: 1) patient to receive nutrition support within 7 days of NPO status 2) diet to advance 3) appetite and labs to improve 4) f/u in 3 days Plan discussed with: Other (rn) SIN KOENIG MD Jun 26, 2024 10:56
[2024-06-26] MEDS ORDERED: LORazepam 2MG/ML-1ML VIAL IV PRN (13:45)
[2024-06-26] MEDS ORDERED: MORPHINE SULFATE INJ 2 MG/ml SYRG IV PRN (13:45)
[2024-06-26] MEDS ORDERED: TPN PER PHARMACY IV NR (22:00)
--- NOTE | 2024-06-27 08:03 | DVHDS2 ---
Discharge Summary Date of Admission Jun 18, 2024 at 20:43 Date of Discharge: Jun 26, 2024 Admitting Diagnosis Cardiopulmonary arrest Labs/Diagnostic Data: Laboratory Results Test 06/26/24 05:48 06/26/24 05:45 06/26/24 03:00 06/25/24 03:03 POC Glucose 154 mg/dl (70-106) Blood Gas Specimen Type Arterial Blood Gas Sample Site Left radial Blood Gas Patient Temperature 37.0 Arterial Blood Date Drawn [id number] Arterial Blood pH 7.457 (7.350-7.450) Arterial Blood Partial Pressure CO2 44.0 mmHg (35.0-48.0) Arterial Blood Partial Pressure O2 76.4 mmHg (83.0-108.0) Arterial Blood HCO3 30.4 mmol/L (21.0-28.0) Arterial Blood Oxygen Saturation 93.0 % (94.0-98.0) Arterial Blood Base Excess 6.0 mmol/L (-2.0-3.0) Arterial Blood Oxyhemoglobin 92.3 % (94.0-98.0) Arterial Blood Carboxyhemoglobin 0.2 % (0.5-1.5) Arterial Blood Methemoglobin 0.6 % (0.0-1.5) Thom Test Modified Blood Gas Total Hemoglobin 6.60 g/dL (13.5-17.5) Blood Gas Set Respiration Rate 18.0 Blood Gas Modality Vent - ac FiO2 % 70.0 Blood Gas Tidal Volume 550.0 Blood Gas PEEP or CPAP 10.0 Blood Gas Critical Value Read Back yes Blood Gas Notified Whom manpower development specialist vania Blood Gas Notified Time [id number] Blood Gas Notified By oil pipe inspector helper valeria White Blood Count 12.6 10^3/uL (4.4-10.8) Red Blood Count 2.04 10^6/uL (4.5-5.90) Hemoglobin 6.2 g/dL (13.5-17.5) Hematocrit 18.3 % (41.0-53.0) Mean Corpuscular Volume 89.8 fL (80.0-100.0) Mean Corpuscular Hemoglobin 30.6 pg (28.0-32.0) Mean Corpuscular Hemoglobin Concent 34.0 g/dL (32.0-36.0) Red Cell Distribution Width 14.2 % (11.8-14.3) Platelet Count 132 10^3/uL (140-450) Mean Platelet Volume 8.4 fL (6.9-10.8) Neutrophils (%) (Auto) 81.7 % (37.0-80.0) Lymphocytes (%) (Auto) 5.9 % (10.0-50.0) Monocytes (%) (Auto) 12.2 % (0.0-12.0) Eosinophils (%) (Auto) 0.1 % (0.0-7.0) Basophils (%) (Auto) 0.1 % (0.0-2.0) Neutrophils # (Auto) 10.3 10 ^3/uL (1.6-8.6) Lymphocytes # (Auto) 0.7 10 ^3/uL (0.4-5.4) Monocytes # (Auto) 1.5 10 ^3/uL (0-1.3) Eosinophils # (Auto) 0 10 ^3/uL (0-0.8) Basophils # (Auto) 0 10 ^3/uL (0-0.2) Nucleated Red Blood Cells 0.1 % Sodium Level 137 mmol/L (136-145) Potassium Level 4.4 mmol/L (3.5-5.1) Chloride Level 99 mmol/L (98-107) Carbon Dioxide Level 33 mmol/L (20-31) Anion Gap 5 (5-15) Blood Urea Nitrogen 70 mg/dL (9-23) Creatinine 2.41 mg/dL (0.700-1.30) Glomerular Filtration Rate Calc 29 mL/min (>90) BUN/Creatinine Ratio 29.0 (10.0-20.0) Serum Glucose 167 mg/dL (74-106) Calcium Level 7.8 mg/dL (8.7-10.4) Phosphorus Level 4.0 mg/dL (2.4-5.1) Magnesium Level 2.2 mg/dL (1.6-2.6) Total Bilirubin 4.8 mg/dL (0.2-1.0) Aspartate Amino Transferase (AST) 90 U/L (13-40) Alanine Aminotransferase (ALT) 47 U/L (7-40) Alkaline Phosphatase 54 U/L (46-116) Total Protein 4.8 g/dL (5.7-8.2) Albumin 2.5 g/dL (3.2-4.8) Direct Bilirubin 3.1 mg/dL (<0.3) Test 06/23/24 07:24 06/23/24 03:00 06/22/24 12:41 06/22/24 12:00 Blood Gas Spontaneous Rate 18 Blood Gas Inspiratory Pressure 23.0 Bl Gas Inspiratory/Expiratory Ratio 1:2.3 Specimen Drawn By ghyde rt Triglycerides Level 92 mg/dL (< 150) Urine Creatinine 49.95 mg/dL (30.0-125.0) Urine Protein/Creatinine Ratio 0.52 Urine Sodium 38 mmol/L (40-220) Urine Total Protein 25.9 mg/dL (1-14) Prothrombin Time 12.3 sec (9.3-11.8) Prothrombin Time INR 1.18 (0.9-1.15) Activated Partial Thromboplast Time > 139.0 SEC (24.5-34.5) Test 06/21/24 14:12 06/21/24 11:24 06/21/24 03:00 06/18/24 22:11 Vitamin D 25-Hydroxy 24.2 ng/mL (30.0-100) D-Dimer, Quantitative 1.20 mg/L FEU (0.0-0.49) Hemoglobin A1c 5.4 % A1C (<5.7) Parathyroid Hormone (Intact) 74.9 pg/mL (18.4-80.1) Urine Color Yellow (Yellow) Urine Clarity Clear (Clear) Urine pH 6.5 (5.0-9.0) Urine Specific [place] 1.018 (1.001-1.035) Urine Protein 3+ (Negative) Urine Ketones Negative (Negative) Urine Blood Negative /uL (Negative) Urine Nitrite Negative (Negative) Urine Bilirubin Negative (Negative) Urine Urobilinogen 4 mg/dL (Negative) Urine Leukocyte Esterase Negative /uL (Negative) Urine RBC 6 /hpf (0 - 3) Urine Microscopic WBC 9 /HPF (0-3) Urine Squamous Epithelial Cells Few /hpf (<5) Urine Bacteria Few /hpf (None Seen) Urine Hyaline Casts Few /lpf (0 - 2) Urine Mucus Few (None Seen) Urine Glucose Normal mg/dL (Normal) Urine Opiates Screen Neg (NEGATIVE) Urine Fentanyl Screen Neg (NEGATIVE) Urine Barbiturates Screen Neg (NEGATIVE) Urine Phencyclidine Screen Neg (NEGATIVE) Urine Amphetamines Screen Neg (NEGATIVE) Urine Benzodiazepines Screen Neg (NEGATIVE) Urine Cocaine Screen Neg (NEGATIVE) Urine Cannabinoids Screen Neg (NEGATIVE) Test 06/18/24 22:07 06/18/24 19:13 Troponin I High Sensitivity 585 ng/L (</=54) B-Type Natriuretic Peptide 745.94 pg/mL (0-100) Plasma/Serum Blood Alcohol < 3.0 mg/dL (<10) Other Laboratory Tests 06/26/24 03:00 Brief Hx & Hospital Course: History of Present Illness The patient is a 64-year-old male severely obese with past medical history hypertension presented to [facility] ED for evaluation of cardiopulmonary arrest. As reported by EMS, patient came home and after entering residence, collapsed to the ground and family called 911. CPR was initiated, and EMS arrived shortly thereafter. EMS reports patient was in PEA upon arrival and AutoPulse was applied. reports patient had been feeling more fatigued than normal over the past 2-3 days and had stopped driving due to the fatigue. Patient was seen and evaluated in the ED fully intubated, laboratory data shows WBC 6.3, platelets 103, sodium 131, potassium 3.6, BUN 25, creatinine 1.00, GFR 83, glucose 123, total bilirubin 1.3, BNP 745.94, troponin 60, blood pressure 82/32, heart rate 154 trending down to 100, temperature 97.4 F, O2 saturation 97% on ventilator. Head CT showed no acute intracranial hemorrhage. Please see medication orders section in the computer. On my assessment, patient is fully intubated, no diaphoresis, no vomiting, no fever, no chills. Patient was admitted for further evaluation and medical management. Course of hospitalization: Patient was started on empiric antibiotic therapy, bronchodilators, as well as having to titrate FiO2 to 100% as well as increasing PEEP to 10 mm of water. Patient had improvement with respiratory status. Echocardiogram was performed which revealed septal bowing, for which therapeutic anticoagulation was provided. Patient was also found to be in acute kidney injury which did improve with hemodynamic stability. Patient was started on amiodarone drip for AFib with RVR. Patient had CT scan after becoming hemodynamically stable, at which time the patient was found to have diffuse cerebral edema. All sedation was weaned off the patient. Patient was found to have no purposeful movement, fixed pupils, with only noted gag reflex as far as cranial nerves. Long discussion was made with the family by myself as well as Neurology regarding patient's poor prognosis. The patient was made a DNR and was compassionately extubated during the evening. Total time spent with patient discussing and formulating plan of care: 35 minutes. This medical document was created using an electronic medical record system with [employer] dictation system. Although this document has been carefully reviewed, there may still be some phonetic and typographical errors. These areas are purely typographical due to imperfections of the software programs, and do not reflect any compromise in the patient's medical care. Consults/Reason for consult Neurology: Hypoxic encephalopathy Pulmonology: Acute respiratory failure Condition at Discharge: Poor Final Diagnosis/Problems List Cardiopulmonary arrest in the field Secondary diagnosis: -morbid obesity -alcoholism -acute hypoxic respiratory failure with mechanical ventilation -questionable acute seizure activity given cessation of alcohol four days prior -atrial fibrillation -metabolic encephalopathy -probable aspiration pneumonia -Anemia, with significant blood loss Discharge Disposition: at Hospital [facility] Discharge Statement: "Patient was advised to return to the ER or call 911 if any headaches, dizziness, shortness of breath, chest pain, abdominal pain, bleeding, fevers, or worsening of medical condition. Patient was counseled about treatment plan, medications, possible side effects, patientverbalized understanding. All questions were answered to the best of my ability. This discharge took greater then 30 minutes in planning, reviewing documentation, counseling the patient, and discussing with other team members." ASSESSMENT ASSESSMENT Assessment Date of Service: Jun 26, 2024 Billing Provider: GRETCHEN PEREZ NP Common Visit Codes: [id number] CARE 30-74 MIN GRETCHEN PEREZ NP Jun 27, 2024 08:03
== END 2024-06-26 17:44 | DRG 870 ==
LOC: ER 18:43 → EDBD 18:43 → OVERFLOW 20:43 → ICU WEST 06-19 18:10
PROVIDERS: ADMIT Nurse Practitioner Acute Care; ATTEND Nurse Practitioner Acute Care
PROC: 5A1955Z Respiratory Ventilation, Greater than 96 Consecutive Hours (ICD-10-PCS; principal; 2024-06-18)
PROC: 06HY33Z Insertion of Infusion Device into Lower Vein, Percutaneous Approach (ICD-10-PCS; 2024-06-18)
PROC: 0BH17EZ Insertion of Endotracheal Airway into Trachea, Via Natural or Artificial Opening (ICD-10-PCS; 2024-06-18)
PROC: 5A2204Z Restoration of Cardiac Rhythm, Single (ICD-10-PCS; 2024-06-18)
PROC: 3E0A3GC Introduction of Other Therapeutic Substance into Bone Marrow, Percutaneous Approach (ICD-10-PCS; 2024-06-18)
PROC: 5A12012 Performance of Cardiac Output, Single, Manual (ICD-10-PCS; 2024-06-18)
PROC: 30233N1 Transfusion of Nonautologous Red Blood Cells into Peripheral Vein, Percutaneous Approach (ICD-10-PCS; 2024-06-26)
DX: A41.9 Sepsis, unspecified organism (principal); J96.01 Acute respiratory failure with hypoxia; I21.4 Non-ST elevation (NSTEMI) myocardial infarction; G92.8 Other toxic encephalopathy; G93.6 Cerebral edema; J69.0 Pneumonitis due to inhalation of food and vomit; N17.0 Acute kidney failure with tubular necrosis; I50.41 Acute combined systolic (congestive) and diastolic (congestive) heart failure; J18.9 Pneumonia, unspecified organism; I13.0 Hypertensive heart and chronic kidney disease with heart failure and stage 1 through stage 4 chronic kidney disease, or unspecified chronic kidney disease; E87.1 Hypo-osmolality and hyponatremia; G93.1 Anoxic brain damage, not elsewhere classified; I48.92 Unspecified atrial flutter; Z68.43 Body mass index [BMI] 50.0-59.9, adult; I46.9 Cardiac arrest, cause unspecified; Z66 Do not resuscitate; F10.10 Alcohol abuse, uncomplicated; Y90.9 Presence of alcohol in blood, level not specified; D50.0 Iron deficiency anemia secondary to blood loss (chronic); E83.42 Hypomagnesemia; I36.1 Nonrheumatic tricuspid (valve) insufficiency; I45.10 Unspecified right bundle-branch block; E66.01 Morbid (severe) obesity due to excess calories; I48.91 Unspecified atrial fibrillation; N18.9 Chronic kidney disease, unspecified; E87.6 Hypokalemia; Z87.891 Personal history of nicotine dependence; Z79.01 Long term (current) use of anticoagulants; Z79.1 Long term (current) use of non-steroidal anti-inflammatories (NSAID); Z79.899 Other long term (current) drug therapy; Z79.84 Long term (current) use of oral hypoglycemic drugs; R56.9 Unspecified convulsions
CPT/HCPCS: 31500; 36415; 36556; 36600; 70450; 71045; 72125; 76775; 80048; 80053; 80076; 80307; 80320; 81001; 82306; 82570; 82805; 82962; 83036; 83735; 83880; 83970; 84100; 84132; 84156; 84300; 84478; 84484; 85025; 85379; 85610; 85730; 86850; 86900; 86901; 86920; 87040; 87070; 87081; 87205; 92950; 93005; 93306; 93970; 94002; 94003; 94640; 95819; 96365; 99291; G0378; J0171; J2185; J2405; J2470; J2543; J2704; J3480; J3490; J7131; Q9956

== ENCOUNTER → 2024-06-26 17:44 | Inpatient (IN) | payer OTHER | END | DRG 177 | LOC: ICU WEST 17:44 | PROVIDERS: ADMIT Internal Medicine; ATTEND Internal Medicine | DX: J69.0 Pneumonitis due to inhalation of food and vomit (principal); G93.41 Metabolic encephalopathy; J96.01 Acute respiratory failure with hypoxia; N17.9 Acute kidney failure, unspecified; Z68.43 Body mass index [BMI] 50.0-59.9, adult; I10 Essential (primary) hypertension; I46.9 Cardiac arrest, cause unspecified; E66.01 Morbid (severe) obesity due to excess calories; I48.91 Unspecified atrial fibrillation; D50.0 Iron deficiency anemia secondary to blood loss (chronic); F10.10 Alcohol abuse, uncomplicated; Y90.9 Presence of alcohol in blood, level not specified | CPT/HCPCS: G0378 ==